=== PATIENT | male | born 1945 | race Caucasian/White ===

== ENCOUNTER → 2016-08-11 | Outpatient (CLI) | payer MEDICARE ==
[~2016-08-11] VITALS: Ht 172.7 cm; Wt 84.3 kg
[~2016-08-11] MED LIST: ASPI81CH32 PO; ASPI81TA7 PO; CARD2TAB PO; CIAL5TAB PO; COLA100C PO; IRON65TA PO; LIDOCAINE 2% INJ 100 MG/5 ML SDV (FOR ANES.) As Ordered ONE; LOVA40TA PO; METF1000 PO; METF500T PO; MULT1TAB10 PO; NS 1,000 ML IV SCH; PROPOFOL 500 MG/50 ML VIAL As Ordered ONE; PROT1TAB2 PO; SUCR1TA PO; TYLE500T78 PO
--- NOTE | 2016-08-11 09:32 | ROOR ---
Patient Name: Tin Ortega Procedure Date: 08/11/2016 9:10 AM Date of : 1945 Age: 71 Room: [facility] Gender: Male Note Status: Finalized Procedure: Upper GI endoscopy Indications: Surveillance for malignancy due to personal history of premalignant condition, Gastric MALT. Providers: Henrry PALACIOS MD Referring MD: Pawan Benedict MD, Rosario Ashby MD Requesting Provider: Medicines: Monitored Anesthesia Care Complications: No immediate complications. Procedure: Pre-Anesthesia Assessment: - The heart rate, respiratory rate, oxygen saturations, blood pressure, adequacy of pulmonary ventilation, and response to care were monitored throughout the procedure. The Endoscope was introduced through the mouth, and advanced to the second part of duodenum. The upper GI endoscopy was accomplished without difficulty. The patient tolerated the procedure well. Findings: A 50 mm scar was found on the greater curvature of the gastric body. The scar tissue was healthy in appearance. There was no evidence of the previous polyp. Biopsies were taken with a cold forceps for histology. The exam was otherwise without abnormality. Impression: - Large Scar (5 cmx6cm) in the proximal to mid gastric body (greater curvature). No evidence of persistent/recurrent MALT lesion. Randomly biopsied. - The examination was otherwise normal. Recommendation: - Await pathology results. - Repeat the upper endoscopy in 1 year for surveillance based on pathology results. Henrry Palacios MD Henrry PALACIOS MD 08/11/2016 9:31:36 AM This report has been signed electronically. Number of Addenda: 0 Note Initiated On: 08/11/2016 9:10 AM Estimated Blood Loss: Estimated blood loss: none.
[2016-08-11 09:52] VITALS: BP 126/69
== END | disposition home or self-care (01) ==
LOC: M OPP 07:13
PROVIDERS: ATTEND Internal Medicine Gastroenterology
DX: Z08 Encounter for follow-up examination after completed treatment for malignant neoplasm (principal); Z85.028 Personal history of other malignant neoplasm of stomach; D50.9 Iron deficiency anemia, unspecified; E11.9 Type 2 diabetes mellitus without complications; M19.90 Unspecified osteoarthritis, unspecified site; Z92.3 Personal history of irradiation; Z88.8 Allergy status to other drugs, medicaments and biological substances; Z79.84 Long term (current) use of oral hypoglycemic drugs; Z79.899 Other long term (current) drug therapy

== ENCOUNTER → 2016-08-17 | Outpatient (CLI) | payer MEDICARE ==
[~2016-08-17] MED LIST changes: +GASTROGRAFIN SOLUTION 30ML (Q9963) As Ordered ONE; +ISOVUE-370 76% 100ML VIAL (Q9967) As Ordered ONE; -LIDOCAINE 2% INJ 100 MG/5 ML SDV (FOR ANES.) As Ordered ONE; -NS 1,000 ML IV SCH; -PROPOFOL 500 MG/50 ML VIAL As Ordered ONE
--- NOTE | 2016-08-17 11:54 | REP ---
Clinical: Non-Hodgkin's lymphoma. Technique: Axial contrast enhanced images from the t lung bases to the pubic symphysis using oral and 100 ml Isovue 370 intravenous contrast material along with precontrast and delayed images of the abdomen as well as coronal and sagittal re-formations. Comparison: 09/12/2015. Findings: Lung bases are relatively clear. Visualized portions of the heart and pericardium are normal. Liver demonstrates stable few hypodensities compatible with benign hepatic cysts - the largest of which is noted in the inferior aspect of the right lobe again measuring approximately 1.9 cm maximal diameter. Spleen, pancreas, gallbladder, and bilateral adrenal glands are normal. Kidneys are stable and again demonstrate few left renal cysts and right lower pole cortical scarring. The enteric system is without obstruction or acute inflammatory process normal terminal ileum and appendix identified in the right lower quadrant. Colonic diverticulosis noted without acute diverticulitis. Pelvis demonstrates normal bladder along with prominent prostate gland measuring 5.5 cm maximal diameter. No significant intra-abdominal/pelvic or retroperitoneal adenopathy is appreciated. Small fat containing left inguinal hernia unchanged. No ascites. No free air. Atherosclerotic changes of the aorta and branch vessels noted without aneurysm or dissection. Musculoskeletal structures demonstrate degenerative changes without focal osseous abnormality along with left hip prosthesis. Impression: 1. Stable benign hepatic and left renal cysts along with minimal right renal cortical scarring. 2. Colonic diverticulosis without acute diverticulitis. 3. No adenopathy, ascites, or obvious mass lesion. Signed by Gregg Baptiste MD 08/17/2016 11:45 A
== END ==
LOC: M RAD 09:33
PROVIDERS: ATTEND Internal Medicine Medical Oncology
DX: R59.1 Generalized enlarged lymph nodes (principal); Q61.02 Congenital multiple renal cysts; K57.30 Diverticulosis of large intestine without perforation or abscess without bleeding
CPT/HCPCS: 74178; Q9963; Q9967

== ENCOUNTER → 2016-08-26 | Outpatient (REF) | payer MEDICARE ==
[~2016-08-26] MED LIST changes: -GASTROGRAFIN SOLUTION 30ML (Q9963) As Ordered ONE; -ISOVUE-370 76% 100ML VIAL (Q9967) As Ordered ONE
[2016-08-26 12:45] LABS: ALBUMIN 4.3 GM/DL (3.2-5.2); ALBUMIN/GLOBULIN RATIO 1.54 (1.00-1.93); ALKALINE PHOSPHATASE 79 U/L (45-117); ALT/SGPT 35 U/L (12-78); ANION GAP 8 MEQ/L (8-16); AST/SGOT 17 U/L (15-37); BILIRUBIN,TOTAL 0.4 MG/DL (0.2-1.0); BLOOD UREA NITROGEN 18 MG/DL (7-18); CALCIUM LEVEL 9.6 MG/DL (8.8-10.2); CARBON DIOXIDE LEVEL 28 MEQ/L (21-32); CHLORIDE LEVEL 108 MEQ/L (98-107); CHOLESTEROL LEVEL 168 MG/DL (<200); GLOMERULAR FILTRATION RATE > 60.0 (>42); GLUCOSE, FASTING 106 MG/DL (83-110); POTASSIUM SERUM 4.7 MEQ/L (3.5-5.1); SODIUM LEVEL 144 MEQ/L (136-145); TOTAL PROTEIN 7.1 GM/DL (6.4-8.2); TRIGLYCERIDES LEVEL 96 MG/DL (<150)
== END ==
LOC: M SFHCCLAY 09:03
PROVIDERS: ATTEND Family Medicine
DX: E11.9 Type 2 diabetes mellitus without complications (principal)

== ENCOUNTER → 2016-08-28 | Outpatient (CLI) | payer MEDICARE | LOC: M SMT 14:25 | PROVIDERS: ATTEND Nurse Practitioner Women's Health | DX: N40.1 Benign prostatic hyperplasia with lower urinary tract symptoms (principal); Z85.51 Personal history of malignant neoplasm of bladder; Z12.5 Encounter for screening for malignant neoplasm of prostate | CPT/HCPCS: 36415; 81001; 87086; 88108; G0103 ==

== ENCOUNTER → 2016-09-30 | Outpatient (REF) | payer MEDICARE | LOC: M SFHCCLAY 09:08 | PROVIDERS: ATTEND Family Medicine | DX: B35.1 Tinea unguium (principal) ==

== ENCOUNTER → 2017-01-06 | Outpatient (CLI) | payer MEDICARE ==
[~2017-01-06] MED LIST changes: -COLA100C PO; +COLA100C3 PO
--- NOTE | 2017-01-06 10:19 | RADONC ---
RADIATION ONCOLOGY FOLLOWUP NOTE DATE: 01/06/2017 CHART NUMBER: [id number] DIAGNOSIS: Gastric MALT lymphoma. STAGE: IAE. ECOG PERFORMANCE STATUS: 0. FOLLOWUP NOTE: Mr. Ortega is a very pleasant 71-year-old white male with the diagnosis of a stage IAE gastric MALT lymphoma who is presenting to us today for routine followup visit 1 year and 2 months post completion of external beam radiation therapy. The patient presents today reporting that generally he is doing quite well. He is complaining of recurrence of difficulty swallowing. He feels like he is food gets stuck somewhere in his mid esophagus. He reports that this has only been going on now for the last 2-3 months. He did say that he had this prior to his radiation and then it cleared up. He also reports that he underwent endoscopy with Dr. Palacios in early August approximately 5 months ago. He has no fevers, chills or night sweats. The patient's review of systems is positive for food getting stuck in the esophagus but is otherwise noncontributory. He denies nausea, vomiting, fevers, chills, night sweats, diplopia, headaches, anxiety or depression, anorexia, weight loss, visual disturbances, chest pain, urinary or bowel difficulties, bone pain, or neurological problems. PHYSICAL EXAMINATION: The patient is a well-developed, well-nourished male in no acute distress. HEENT exam is normocephalic, atraumatic. Extraocular movements are intact. There is no palpable cervical, supraclavicular, infraclavicular, axillary, or inguinal lymphadenopathy present. Lungs are clear to auscultation and percussion. Heart has a regular rate and rhythm. Abdomen is benign with no hepatosplenomegaly, masses, or tenderness. Rectal examination reveals a normal anal sphincter tone. Skeletal examination reveals no tenderness to pressure or percussion of the bony skeleton. Extremities reveal no clubbing, cyanosis, or edema. Neurologic exam is grossly intact as is the remainder of the physical examination. ASSESSMENT: The patient is clinically doing quite well at this point. I have ordered new CT scans of the chest, abdomen, and pelvis to be undertaken especially considering the patient's new symptoms. Clearly, we are looking for any lymphadenopathy in the mediastinum. In addition, I have referred the patient back to Dr. Palacios to discuss his gastroesophageal problems. The patient will continue his routine followup and management by his medical oncologist, Dr. Ashby who just within the last few weeks did new blood work. I have set the patient up to be seen by me again in six months' time. Once again, I am setting him up to discuss his issues with Dr. Palacios and he will continue his close management with his medical oncologist, Dr. Ashby. cc: MD Henrry Grove MD
== END ==
LOC: M ONCR 09:02
PROVIDERS: ATTEND Radiology Radiation Oncology
DX: C88.4 Extranodal marginal zone B-cell lymphoma of mucosa-associated lymphoid tissue [MALT-lymphoma] (principal)

== ENCOUNTER → 2017-01-08 | Outpatient (CLI) | payer MEDICARE ==
[~2017-01-08] MED LIST changes: +GASTROGRAFIN SOLUTION 30ML (Q9963) As Ordered ONE; +ISOVUE-370 76% 100ML VIAL (Q9967) As Ordered ONE
--- NOTE | 2017-01-08 11:07 | REP ---
CT of the chest with IV contrast, without bowel contrast: Comparisons 09/19/2015. There is no esophageal wall thickening. There is no para esophageal mass or adenopathy. On the comparison study there was marked gastric wall thickening along the greater curvature. Today there is wall thickening of the gastric antrum along the greater curvature, however, significantly decreased from the prior study. This extends into the gastric fundus near the esophagus. There is no esophageal dilatation to suggest esophageal obstruction. There are no lung masses or nodules. There is a bulla in the right lower lobe. This is unchanged. There is discoid atelectasis in the right middle lobe. There are no infiltrates or effusions. There is no mediastinal or hilar lymph node enlargement. No axillary lymph node enlargement. Thoracic aorta is unremarkable. Cardiac size is normal. There is no pericardial effusion. In the upper abdomen there is a small cyst at the inferior tip of the hepatic right lobe. This was not imaged on the prior study. Visualized portions of the gallbladder, pancreas and spleen are unremarkable. There are small renal cortical cysts in the visualized upper pole of the left kidney, unchanged. Visualized upper pole right kidney is unremarkable. The adrenals are unremarkable. Impression: There is wall thickening of the gastric antrum along the greater curvature extending into the gastric fundus near the distal esophagus. There is no esophageal dilatation to suggest obstruction. There is no wall thickening of the esophagus. There is no para esophageal mass or adenopathy. There is no mediastinal, hilar or axillary adenopathy. There are no pulmonary masses or nodules, infiltrates or effusions. There is atelectasis/scarring in the right middle lobe. There is a bulla in the right lower lobe, unchanged. Signed by Tony Mcguire MD 01/08/2017 10:58 A
--- NOTE | 2017-01-08 12:03 | REP ---
CT of the abdomen and pelvis with IV contrast, without bowel contrast: The study is performed in conjunction with the CT of the chest performed this same date. Multiphasic scanning is performed initially without IV contrast. Followed by arterial phase IV contrast enhancement from the diaphragms to the pubic symphysis, followed by delayed equilibrium phase scanning from the diaphragms to the iliac crests. Comparisons are 08/17/2016 and 09/12/15. There is wall thickening in the gastric antrum along the greater curvature extending into the fundus near the distal esophagus. This is similar in appearance to 08/17/2016, however, the gastric wall thickening is significantly decreased from 09/12/2015. There is no evidence of esophageal wall thickening or esophageal distension. There is a tiny cyst posteriorly in the dome of the liver. There is a small cyst anteriorly at the inferior tip of the hepatic right lobe. There is a bilobed cyst at the extreme tip of the hepatic right lobe measuring 18 mm in greatest diameter. These cysts are not significantly changed. The hepatic parenchyma is otherwise homogeneous and unremarkable. There is a tiny calculus in the gallbladder. The gallbladder is otherwise unremarkable. There are pancreatic calcifications at the junction of the head and body of the pancreas. These are unchanged and may be sequela of prior pancreatitis. The spleen is not enlarged and is otherwise unremarkable. The adrenals are unremarkable. The right kidney is unremarkable. There are multiple renal cortical cysts in the left kidney, unchanged. Left kidney is otherwise unremarkable. The abdominal aorta is unremarkable. There is no retroperitoneal or mesenteric adenopathy. There is no ascites. The bowel loops are unremarkable. Pelvis: There is sigmoid colon diverticulosis without diverticulitis, this is unchanged. The bladder is incompletely distended but otherwise unremarkable. There are no lytic, blastic or destructive skeletal changes. There is no pelvic adenopathy, ascites or mass. There is a left hip total arthroplasty. This is unchanged. Impression: There are stable benign hepatic and left renal cysts. There is sigmoid colon diverticulosis without diverticulitis. There is no adenopathy, mass, ascites or skeletal lesion. No significant interval change. Signed by Tony Mcguire MD 01/08/2017 11:55 A
== END ==
LOC: M RAD 07:49
PROVIDERS: ATTEND Radiology Radiation Oncology
DX: T18.120A Food in esophagus causing compression of trachea, initial encounter (principal); K57.30 Diverticulosis of large intestine without perforation or abscess without bleeding; N28.1 Cyst of kidney, acquired; Z88.8 Allergy status to other drugs, medicaments and biological substances; Z96.9 Presence of functional implant, unspecified; Y92.89 Other specified places as the place of occurrence of the external cause
CPT/HCPCS: 71260; 74178; Q9963; Q9967

== ENCOUNTER → 2017-01-28 | Outpatient (CLI) | payer MEDICARE ==
[~2017-01-28] MED LIST changes: +E-Z-GAS II EFFERVESCENT PACKET (SODIUM BICARB./CITRIC ACID/SIMETHICONE) As Ordered ONE; +E-Z-HD 98% w/w 340GM SUSP BTL As Ordered ONE; +E-Z-PAQUE 96% w/w SUSP 176GM BTL As Ordered ONE; -GASTROGRAFIN SOLUTION 30ML (Q9963) As Ordered ONE; -ISOVUE-370 76% 100ML VIAL (Q9967) As Ordered ONE
--- NOTE | 2017-01-28 16:35 | REP ---
ESOPHAGRAM: The procedure was performed under the direct supervision of Dr. De. The images were reviewed with Dr. De. A single view PA chest x-ray is submitted as a nursing program director film. There is no change compared to a previous chest x-ray dated 03/19/2016. Liquid barium and gas producing granules were given in the erect position as well as liquid barium in the prone oblique positions in order to perform a double contrast esophagram examination. The oral and pharyngeal stages of deglutition are unremarkable. 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 Esophageal transport is prompt and efficient and there is no esophagitis, stricture, mucosal ring or hiatal hernia. Gastroesophageal reflux is not demonstrated on this examination. IMPRESSION: There is cricopharyngeal hypertrophy, otherwise unremarkable double contrast esophagram examination. 57 seconds of fluoroscopy time was utilized for this procedure.
== END ==
LOC: M RAD 08:25
PROVIDERS: ATTEND Physician Assistant Medical
DX: J39.2 Other diseases of pharynx (principal)

== ENCOUNTER → 2017-02-24 | Outpatient (REF) | payer MEDICARE ==
[~2017-02-24] MED LIST changes: +ASPI1TAB15 PO; -ASPI81TA7 PO; -COLA100C3 PO; +COLA100C5 PO; -E-Z-GAS II EFFERVESCENT PACKET (SODIUM BICARB./CITRIC ACID/SIMETHICONE) As Ordered ONE; -E-Z-HD 98% w/w 340GM SUSP BTL As Ordered ONE; -E-Z-PAQUE 96% w/w SUSP 176GM BTL As Ordered ONE; -METF1000 PO; +METF10004 PO; -METF500T PO; +METF500T13 PO
[2017-02-24 11:41] LABS: ANION GAP 5 MEQ/L (8-16); BLOOD UREA NITROGEN 17 MG/DL (7-18); CALCIUM LEVEL 9.4 MG/DL (8.8-10.2); CARBON DIOXIDE LEVEL 28 MEQ/L (21-32); CHLORIDE LEVEL 107 MEQ/L (98-107); CREATININE FOR GFR 1.02 MG/DL (0.70-1.30); GLOMERULAR FILTRATION RATE > 60.0 (>42); GLUCOSE, FASTING 121 MG/DL (83-110); POTASSIUM SERUM 4.9 MEQ/L (3.5-5.1); SODIUM LEVEL 140 MEQ/L (136-145)
== END ==
LOC: M SFHCCLAY 08:48
PROVIDERS: ATTEND Family Medicine
DX: N40.1 Benign prostatic hyperplasia with lower urinary tract symptoms (principal); E11.9 Type 2 diabetes mellitus without complications; R41.3 Other amnesia

== ENCOUNTER → 2017-06-03 | Outpatient (REF) | payer MEDICARE ==
[2017-06-03 18:46] LABS: FREE T4 1.05 NG/DL (0.76-1.46)
== END ==
LOC: M SFHCCLAY 11:32
PROVIDERS: ATTEND Family Medicine
DX: R94.6 Abnormal results of thyroid function studies (principal)

== ENCOUNTER → 2017-06-21 | Outpatient (CLI) | payer MEDICARE | LOC: M LAB 09:14 | PROVIDERS: ATTEND Ophthalmology | DX: C44.319 Basal cell carcinoma of skin of other parts of face (principal) ==

== ENCOUNTER → 2017-06-23 | Outpatient (REF) | payer MEDICARE | LOC: M LAB REF 14:15 | PROVIDERS: ATTEND Ophthalmology | DX: C44.319 Basal cell carcinoma of skin of other parts of face (principal) ==

== ENCOUNTER → 2017-08-06 | Outpatient (CLI) | payer MEDICARE | LOC: M RAD 09:55 | DX: K40.90 Unilateral inguinal hernia, without obstruction or gangrene, not specified as recurrent (principal); K42.9 Umbilical hernia without obstruction or gangrene | CPT/HCPCS: 76857 ==

== ENCOUNTER 2017-09-02 06:52 | Day surgery (SDC) | payer MEDICARE ==
[2017-09-02] MEDS: NS 1,000 ML IV (07:15)
[2017-09-02] MEDS ORDERED: PROPOFOL 200 MG/20 ML VIAL As Ordered ×2 (07:19→07:42)
[2017-09-02] MEDS ORDERED: LIDOCAINE 2% INJ 100 MG/5 ML SDV (FOR ANES.) As Ordered (07:19)
== END 2017-09-02 08:18 | disposition home or self-care (01) ==
LOC: M OPP 06:52
DX: K31.89 Other diseases of stomach and duodenum (principal); Z87.19 Personal history of other diseases of the digestive system; E11.9 Type 2 diabetes mellitus without complications; E78.00 Pure hypercholesterolemia, unspecified; D64.9 Anemia, unspecified; K22.70 Barrett's esophagus without dysplasia; Z79.82 Long term (current) use of aspirin; Z79.84 Long term (current) use of oral hypoglycemic drugs; Z79.899 Other long term (current) drug therapy; Z88.8 Allergy status to other drugs, medicaments and biological substances; Z85.51 Personal history of malignant neoplasm of bladder; Z85.828 Personal history of other malignant neoplasm of skin; Z96.641 Presence of right artificial hip joint; Z92.3 Personal history of irradiation
CPT/HCPCS: 43239

== ENCOUNTER → 2017-09-22 | Outpatient (REF) | payer MEDICARE ==
[2017-09-22 11:42] LABS: ESTIMATED AVERAGE GLUCOSE 146 MG/DL (60-110); HEMOGLOBIN A1c 6.7 %
[2017-09-22 11:50] LABS: ANION GAP 7 MEQ/L (8-16); BLOOD UREA NITROGEN 17 MG/DL (7-18); CALCIUM LEVEL 9.6 MG/DL (8.8-10.2); CARBON DIOXIDE LEVEL 28 MEQ/L (21-32); CHLORIDE LEVEL 108 MEQ/L (98-107); CREATININE FOR GFR 1.08 MG/DL (0.70-1.30); GLOMERULAR FILTRATION RATE > 60.0 (>42); GLUCOSE, FASTING 124 MG/DL (70-100); POTASSIUM SERUM 4.6 MEQ/L (3.5-5.1); SODIUM LEVEL 143 MEQ/L (136-145)
[2017-09-22 11:54] LABS: CHOLESTEROL LEVEL 207 MG/DL (<200); CHOLESTEROL RISK RATIO 3.833 (<5); HDL CHOLESTEROL 54 MG/DL (>40); LDL CHOLESTEROL 125.2 MG/DL (<100); NON-HDL-C 153 MG/DL; TRIGLYCERIDES LEVEL 139 MG/DL (<150)
[2017-09-22 11:57] LABS: MALB URINE SIEMENS 25.8 MG/L; MAU/CREAT RATIO 11.6 MCG/MG (0.0-30.0)
== END ==
LOC: M SFHCCLAY 07:44
DX: E11.9 Type 2 diabetes mellitus without complications (principal)
CPT/HCPCS: 83036

== ENCOUNTER → 2017-11-11 | Outpatient (CLI) | payer MEDICARE, BC, OTHER | LOC: M CLY 10:19 | DX: R04.2 Hemoptysis (principal) | CPT/HCPCS: G0463 ==

== ENCOUNTER → 2018-03-21 | Outpatient (REF) | payer MEDICARE ==
[2018-03-21 12:51] LABS: ANION GAP 6 MEQ/L (8-16); BLOOD UREA NITROGEN 14 MG/DL (7-18); CALCIUM LEVEL 9.5 MG/DL (8.8-10.2); CARBON DIOXIDE LEVEL 28 MEQ/L (21-32); CHLORIDE LEVEL 109 MEQ/L (98-107); CHOLESTEROL LEVEL 182 MG/DL (<200); CHOLESTEROL RISK RATIO 3.791 (<5); CREATININE FOR GFR 0.95 MG/DL (0.70-1.30); GLOMERULAR FILTRATION RATE > 60.0 (>42); GLUCOSE, FASTING 104 MG/DL (70-100); HDL CHOLESTEROL 48 MG/DL (>40); NON-HDL-C 134 MG/DL; POTASSIUM SERUM 4.7 MEQ/L (3.5-5.1); SODIUM LEVEL 143 MEQ/L (136-145); TRIGLYCERIDES LEVEL 165 MG/DL (<150)
[2018-03-21 16:26] LABS: ESTIMATED AVERAGE GLUCOSE 143 MG/DL (60-110); HEMOGLOBIN A1c 6.6 %
== END ==
LOC: M SFHCCLAY 08:33
DX: E11.9 Type 2 diabetes mellitus without complications (principal); E78.00 Pure hypercholesterolemia, unspecified
CPT/HCPCS: 83036

== ENCOUNTER → 2018-06-21 | Outpatient (CLI) | payer MEDICARE | LOC: M CLY 08:34 | DX: M20.61 Acquired deformities of toe(s), unspecified, right foot (principal); M79.671 Pain in right foot | CPT/HCPCS: 71046 ==

== ENCOUNTER → 2018-06-21 | Outpatient (REF) | payer MEDICARE ==
[2018-06-21 12:48] LABS: ALBUMIN 3.9 GM/DL (3.2-5.2); ALBUMIN/GLOBULIN RATIO 1.39 (1.00-1.93); ALKALINE PHOSPHATASE 81 U/L (45-117); ALT/SGPT 30 U/L (12-78); ANION GAP 4 MEQ/L (8-16); AST/SGOT 19 U/L (7-37); BILIRUBIN,TOTAL 0.3 MG/DL (0.2-1.0); BLOOD UREA NITROGEN 18 MG/DL (7-18); CARBON DIOXIDE LEVEL 30 MEQ/L (21-32); CHLORIDE LEVEL 108 MEQ/L (98-107); CREATININE FOR GFR 1.09 MG/DL (0.70-1.30); GLOMERULAR FILTRATION RATE > 60.0 (>42); GLUCOSE, FASTING 110 MG/DL (70-100); POTASSIUM SERUM 4.9 MEQ/L (3.5-5.1); SODIUM LEVEL 142 MEQ/L (136-145); TOTAL PROTEIN 6.7 GM/DL (6.4-8.2)
[2018-06-21 12:58] LABS: BASO # 0.1 10^3/uL (0.0-0.2); BASO % 0.9 % (0.0-1.0); EOS # 0.5 10^3/uL (0.0-0.50); EOS % 7.7 % (0.0-3.0); HEMATOCRIT 41.6 % (42.0-52.0); HEMOGLOBIN 13.3 g/dl (13.5-17.5); IMMATURE GRANULOCYTE % 0.1 % (0-3.0); LYMPH # 1.2 10^3/uL (1.5-4.5); LYMPH % 17.1 % (24.0-44.0); MEAN CORPUSCULAR HEMOGLOBIN 29.6 pg (27.0-33.0); MEAN CORPUSCULAR VOLUME 92.4 fl (80.0-96.0); MONO # 0.8 10^3/uL (0.0-0.8); MONO % 12.1 % (0.0-5.0); NEUTROPHILS # 4.3 10^3/uL (1.8-7.7); NEUTROPHILS % 62.1 % (36.0-66.0); PLATELET COUNT, AUTOMATED 291 10^3/uL (150-450); RED CELL DISTRIBUTION WIDTH 15.6 % (11.5-14.5); WHITE BLOOD COUNT 6.9 10^3/uL (4.0-10.0)
== END ==
LOC: M LAB REF 11:16
DX: M20.41 Other hammer toe(s) (acquired), right foot (principal); M79.671 Pain in right foot
CPT/HCPCS: 80053

== ENCOUNTER 2018-07-08 06:02 | Day surgery (SDC) | payer MEDICARE ==
[2018-07-08 06:50] LABS: BEDSIDE GLUCOSE 112 MG/DL (83-110)
[2018-07-08] MEDS: LR 1,000 ML IV (06:50)
[2018-07-08] MEDS ORDERED: LIDOCAINE 2% INJ 100 MG/5 ML SDV (FOR ANES.) As Ordered (07:20)
[2018-07-08] MEDS ORDERED: PROPOFOL 500 MG/50 ML VIAL As Ordered (07:20)
[2018-07-08] MEDS ORDERED: MIDAZOLAM INJ 2 MG/2 ML VIAL (J2250) As Ordered (07:21)
[2018-07-08] MEDS ORDERED: fentaNYL 100 MCG/2 ML INJECTION (J3010) As Ordered (07:21)
[2018-07-08] MEDS: BUPIVACAINE HCL 0.5% 10 ML VIAL As Ordered ×2 (07:40→09:50)
[2018-07-08] MEDS: LIDOCAINE 2% MDV 20 ML VIAL As Ordered (07:40)
[2018-07-08] MEDS ORDERED: PROPOFOL 200 MG/20 ML VIAL As Ordered ×2 (08:53→09:25)
[2018-07-08] MEDS: BACITRACIN PWD 50,000 UNITS VIAL As Ordered (09:30)
[2018-07-08] MEDS: NEOSPORIN GU IRRIG 20 ML VIAL As Ordered (09:30)
[2018-07-08] MEDS: dexameTHASONE 4 MG/ML 1ML VIAL (J1100) As Ordered (09:50)
[2018-07-08] MEDS ORDERED: NORCO, ANEXSIA 5/325MG TABLET (HYDROcodone/ACETAMINOPHEN) PO (10:45)
[2018-07-08] MEDS ORDERED: LR 1,000 ML IV (10:45)
[2018-07-08] MEDS ORDERED: ONDANSETRON 4MG/2ML VIAL (J2405) IV (10:45)
== END 2018-07-08 11:30 | disposition home or self-care (01) ==
LOC: M SDC 06:02
DX: M20.41 Other hammer toe(s) (acquired), right foot (principal); M77.41 Metatarsalgia, right foot; E11.9 Type 2 diabetes mellitus without complications; E78.5 Hyperlipidemia, unspecified; Z92.3 Personal history of irradiation; Z85.51 Personal history of malignant neoplasm of bladder; Z79.82 Long term (current) use of aspirin; Z79.84 Long term (current) use of oral hypoglycemic drugs; Z79.899 Other long term (current) drug therapy
CPT/HCPCS: 28285

== ENCOUNTER → 2018-09-30 | Outpatient (REF) | payer MEDICARE ==
[~2018-09-30] MED LIST changes: +VITA500T PO
[2018-09-30 12:54] LABS: HEMATOCRIT 41.6 % (42.0-52.0); HEMOGLOBIN 13.4 g/dl (13.5-17.5); MEAN CORPUSCULAR HEMOGLOBIN 29.7 pg (27.0-33.0); MEAN CORPUSCULAR HGB CONC 32.2 g/dl (32.0-36.5); MEAN CORPUSCULAR VOLUME 92.2 fl (80.0-96.0); PLATELET COUNT, AUTOMATED 281 10^3/uL (150-450); RED BLOOD COUNT 4.51 10^6/uL (4.30-6.10); WHITE BLOOD COUNT 6.4 10^3/uL (4.0-10.0)
[2018-09-30 13:06] LABS: BLOOD UREA NITROGEN 18 MG/DL (7-18); CALCIUM LEVEL 9.5 MG/DL (8.8-10.2); CARBON DIOXIDE LEVEL 28 MEQ/L (21-32); CHLORIDE LEVEL 107 MEQ/L (98-107); CREATININE FOR GFR 0.99 MG/DL (0.70-1.30); GLOMERULAR FILTRATION RATE > 60.0 (>42); GLUCOSE, FASTING 108 MG/DL (70-100); POTASSIUM SERUM 4.9 MEQ/L (3.5-5.1); SODIUM LEVEL 141 MEQ/L (136-145)
[2018-09-30 13:33] LABS: MALB URINE SIEMENS 12.4 MG/L; MAU/CREAT RATIO 10.5 MCG/MG (0.0-30.0)
[2018-09-30 14:23] LABS: HEMOGLOBIN A1c 7.1 %
== END ==
LOC: M SFHCCLAY 08:39
PROVIDERS: ATTEND Family Medicine
DX: C88.4 Extranodal marginal zone B-cell lymphoma of mucosa-associated lymphoid tissue [MALT-lymphoma] (principal); E11.9 Type 2 diabetes mellitus without complications; E78.00 Pure hypercholesterolemia, unspecified

== ENCOUNTER 2018-10-27 12:50 | Day surgery (SDC) | payer MEDICARE ==
[~2018-10-27] VITALS: Ht 172.7 cm; Wt 83.9 kg
[2018-10-27] MEDS ORDERED: NS 1,000 ML IV ONE (13:30)
[2018-10-27] MEDS ORDERED: PROPOFOL 200 MG/20 ML VIAL As Ordered ONE (14:17)
[2018-10-27] MEDS ORDERED: LIDOCAINE 2% INJ 100 MG/5 ML SDV (FOR ANES.) As Ordered ONE (14:17)
--- NOTE | 2018-10-27 14:37 | ROOR ---
Patient Name: Tin Ortega Procedure Date: 10/27/2018 2:14 PM Date of : 1945 Age: 73 Room: [facility] Gender: Male Note Status: Finalized Procedure: Upper GI endoscopy Indications: Follow-up of MALT lymphoma Providers: Henrry PALACIOS MD Referring MD: Pawan Benedict MD Requesting Provider: Medicines: Monitored Anesthesia Care Complications: No immediate complications. Procedure: Pre-Anesthesia Assessment: - The heart rate, respiratory rate, oxygen saturations, blood pressure, adequacy of pulmonary ventilation, and response to care were monitored throughout the procedure. The Endoscope was introduced through the mouth, and advanced to the second part of duodenum. The upper GI endoscopy was accomplished without difficulty. The patient tolerated the procedure well. Findings: The examined esophagus was normal. A medium scar was found on the greater curvature of the stomach. The scar tissue was healthy in appearance. This was biopsied with a cold forceps for histology. Mild inflammation was found in the gastric antrum. Biopsies were taken with a cold forceps for histology. A single erosion without bleeding was found in the first portion of the duodenum. Biopsies were taken with a cold forceps for histology. Impression: - Normal esophagus. - Scar in the greater curvature of the stomach. Biopsied. - Mild antral gastritis and duodenal erosion. Biopsied together. - The exam is otherwise normal. Recommendation: - Telephone endoscopist for pathology results in 2 weeks. - Use Prilosec (omeprazole) 20 mg PO daily. - (the script was sent to your pharmacy on file) Henrry Palacios MD Henrry PALACIOS MD 10/27/2018 2:37:17 PM This report has been signed electronically. Number of Addenda: 0 Note Initiated On: 10/27/2018 2:14 PM Estimated Blood Loss: Estimated blood loss: none.
[2018-10-27 15:05] VITALS: BP 110/65
== END 2018-10-27 15:14 | disposition home or self-care (01) ==
LOC: M OPP 12:50
PROVIDERS: ATTEND Internal Medicine Gastroenterology
DX: K31.89 Other diseases of stomach and duodenum (principal); K29.70 Gastritis, unspecified, without bleeding; K26.9 Duodenal ulcer, unspecified as acute or chronic, without hemorrhage or perforation; C88.4 Extranodal marginal zone B-cell lymphoma of mucosa-associated lymphoid tissue [MALT-lymphoma]; B96.81 Helicobacter pylori [H. pylori] as the cause of diseases classified elsewhere; Z79.82 Long term (current) use of aspirin; Z79.899 Other long term (current) drug therapy; Z88.8 Allergy status to other drugs, medicaments and biological substances; Z92.3 Personal history of irradiation

== ENCOUNTER → 2018-11-04 | Outpatient (CLI) | payer MEDICARE ==
--- NOTE | 2018-11-04 11:22 | REP ---
Chest two views HISTORY: Influenza Comparison: 06/21/2018 There is elevation of the left hemidiaphragm. The lungs are clear. The heart is normal in size. The pulmonary vasculature is normal in appearance. Degenerative change is present in the thoracic spine. IMPRESSION: No acute disease.
== END ==
LOC: M CLY 10:14
PROVIDERS: ATTEND Family Medicine
DX: J11.1 Influenza due to unidentified influenza virus with other respiratory manifestations (principal)

== ENCOUNTER → 2018-12-06 | Outpatient (CLI) | payer MEDICARE ==
[~2018-12-06] MED LIST changes: -ASPI81CH32 PO; +ASPI81CH33 PO
--- NOTE | 2018-12-06 08:59 | REP ---
ULTRASOUND ANTERIOR ABDOMINAL WALL: Real-time sonographic evaluation of the anterior abdominal wall was performed. Reportedly there is a palpable abnormality in the supraumbilical region. There does appear to be diastasis of the rectus muscles both above and below the umbilicus. At the umbilicus diastasis is approximately 6 cm, and above the umbilicus it measures about 9.5 cm. There is no overt abdominal wall hernia identified. Electronically Signed by Tony De MD 12/07/2018 11:36 A
== END ==
LOC: M RAD 06:43
PROVIDERS: ATTEND Physician Assistant Medical
DX: M62.08 Separation of muscle (nontraumatic), other site (principal)

== ENCOUNTER → 2018-12-30 | Outpatient (REF) | payer MEDICARE ==
[2018-12-30 11:20] LABS: BLOOD UREA NITROGEN 20 MG/DL (7-18); CREATININE FOR GFR 1.07 MG/DL (0.70-1.30); GLOMERULAR FILTRATION RATE > 60.0 (>42)
== END ==
LOC: M LABDRAWC 10:54 → M LABDRAW1 10:54
PROVIDERS: ATTEND Physician Assistant Medical
DX: R10.12 Left upper quadrant pain (principal)

== ENCOUNTER → 2019-01-06 | Outpatient (CLI) | payer MEDICARE ==
[~2019-01-06] MED LIST changes: +GASTROGRAFIN SOLUTION 30ML (Q9963) As Ordered ONE; +ISOVUE-370 76% 100ML VIAL (Q9967) As Ordered ONE
--- NOTE | 2019-01-06 11:43 | REP ---
CT ABDOMEN PELVIS WITHOUT AND WITH IV CONTRAST: With oral contrast. HISTORY: Left upper quadrant pain. Palpable hernia, which appears to be reducible. The patient also gives a history of prior bladder carcinoma and stomach carcinoma as well as non-Hodgkin lymphoma. Comparison sonography December 06, 2018. Comparison CT study January 08, 2017. The CT CONTRAST DOSE: 100 mL of intravenous Isovue 370. CT FINDINGS: Preliminary digital earth science technical officer radiograph shows multiple small air-fluid levels distributed throughout the colon suggesting enteritis. The left hip has been replaced. The liver and spleen are normal in size and homogeneous in texture except for the presence of a cyst in the inferior aspect of the right lobe of the liver measuring 2.2 cm in greatest diameter. No adrenal lesion is seen on either side. Pancreas contains a calcification in the body of the pancreas but is otherwise normal. No abnormalities noted in the gallbladder. Findings in the liver and pancreas are unchanged from comparison study. There are small renal cortical cysts in the left kidney unchanged. The largest of these measures 2.6 cm in greatest diameter. No renal mass lesion is observed. There is some cortical thinning in the upper pole of the left kidney unchanged. Normal caliber aorta with vascular calcification. No periaortic mass or adenopathy is seen. Small and large intestinal bowel loops are opacified with orally ingested contrast and display liquid content. There is diverticulosis affecting the sigmoid colon without CT evidence of diverticulitis. No colonic mass lesion is visible. The ileocecal valve is unremarkable. The appendix is normal in appearance. Seminal vesicles, prostate and urinary bladder are unremarkable. No acute bony abnormality is appreciated. IMPRESSION: Prominent vascular calcification. Left colonic diverticulosis. No abdominal wall defect seen by CT. Small stable hepatic cyst and renal cysts. Electronically Signed by Daniel Lomas MD 01/06/2019 03:59 P
== END ==
LOC: M RAD 08:38
PROVIDERS: ATTEND Physician Assistant Medical
DX: R10.12 Left upper quadrant pain (principal); Z85.51 Personal history of malignant neoplasm of bladder; Z85.79 Personal history of other malignant neoplasms of lymphoid, hematopoietic and related tissues; Z85.00 Personal history of malignant neoplasm of unspecified digestive organ; N28.1 Cyst of kidney, acquired; K57.30 Diverticulosis of large intestine without perforation or abscess without bleeding; K76.89 Other specified diseases of liver
CPT/HCPCS: 74178; Q9963; Q9967

== ENCOUNTER → 2019-02-06 | Outpatient (REF) | payer MEDICARE ==
[~2019-02-06] MED LIST changes: -GASTROGRAFIN SOLUTION 30ML (Q9963) As Ordered ONE; -ISOVUE-370 76% 100ML VIAL (Q9967) As Ordered ONE
[2019-02-06 11:58] LABS: INR 2.74; PROTHROMBIN TIME 28.9 SECONDS (11.8-14.0)
== END ==
LOC: M SFHCCLAY 07:34
PROVIDERS: ATTEND Family Medicine
DX: Z79.01 Long term (current) use of anticoagulants (principal)

== ENCOUNTER → 2019-02-08 | Outpatient (REF) | payer MEDICARE ==
[2019-02-08 12:02] LABS: INR 3.44; PROTHROMBIN TIME 34.7 SECONDS (11.8-14.0)
== END ==
LOC: M SFHCCLAY 07:47
PROVIDERS: ATTEND Family Medicine
DX: Z79.01 Long term (current) use of anticoagulants (principal); Z95.1 Presence of aortocoronary bypass graft

== ENCOUNTER → 2019-02-10 | Outpatient (REF) | payer MEDICARE ==
[2019-02-10 11:58] LABS: INR 2.66; PROTHROMBIN TIME 28.2 SECONDS (11.8-14.0)
== END ==
LOC: M SFHCCLAY 07:39
PROVIDERS: ATTEND Family Medicine
DX: Z79.01 Long term (current) use of anticoagulants (principal); Z95.1 Presence of aortocoronary bypass graft

== ENCOUNTER → 2019-02-15 | Outpatient (REF) | payer MEDICARE ==
[2019-02-15 17:56] LABS: INR 2.98; PROTHROMBIN TIME 30.9 SECONDS (11.8-14.0)
== END ==
LOC: M SFHCCLAY 11:28
PROVIDERS: ATTEND Family Medicine
DX: Z79.01 Long term (current) use of anticoagulants (principal)

== ENCOUNTER → 2019-02-21 | Outpatient (REF) | payer MEDICARE ==
[2019-02-21 13:16] LABS: INR 4.59; PROTHROMBIN TIME 43.7 SECONDS (11.8-14.0)
== END ==
LOC: M SFHCCLAY 07:46
PROVIDERS: ATTEND Family Medicine
DX: Z79.01 Long term (current) use of anticoagulants (principal); Z95.1 Presence of aortocoronary bypass graft; I48.0 Paroxysmal atrial fibrillation

== ENCOUNTER → 2019-02-28 | Outpatient (REF) | payer MEDICARE ==
[2019-02-28 12:35] LABS: INR 1.64; PROTHROMBIN TIME 19.2 SECONDS (11.8-14.0)
== END ==
LOC: M SFHCCLAY 07:33
PROVIDERS: ATTEND Family Medicine
DX: Z79.01 Long term (current) use of anticoagulants (principal); Z95.1 Presence of aortocoronary bypass graft; I48.0 Paroxysmal atrial fibrillation

== ENCOUNTER → 2019-03-07 | Outpatient (REF) | payer MEDICARE ==
[2019-03-07 11:39] LABS: INR 1.83; PROTHROMBIN TIME 20.9 SECONDS (11.8-14.0)
== END ==
LOC: M SFHCCLAY 07:35
PROVIDERS: ATTEND Family Medicine
DX: Z51.81 Encounter for therapeutic drug level monitoring (principal); Z79.01 Long term (current) use of anticoagulants; I48.0 Paroxysmal atrial fibrillation; Z95.1 Presence of aortocoronary bypass graft

== ENCOUNTER → 2019-03-14 | Outpatient (REF) | payer MEDICARE ==
[2019-03-14 14:12] LABS: INR 2.28; PROTHROMBIN TIME 24.9 SECONDS (11.8-14.0)
== END ==
LOC: M SFHCCLAY 08:17
PROVIDERS: ATTEND Family Medicine
DX: Z79.01 Long term (current) use of anticoagulants (principal); Z95.1 Presence of aortocoronary bypass graft; I48.0 Paroxysmal atrial fibrillation

== ENCOUNTER → 2019-03-28 | Outpatient (REF) | payer MEDICARE ==
[2019-03-28 11:58] LABS: INR 2.83; PROTHROMBIN TIME 29.7 SECONDS (11.8-14.0)
== END ==
LOC: M SFHCCLAY 08:34
PROVIDERS: ATTEND Family Medicine
DX: Z79.01 Long term (current) use of anticoagulants (principal); Z95.1 Presence of aortocoronary bypass graft; I48.0 Paroxysmal atrial fibrillation

== ENCOUNTER → 2019-04-25 | Outpatient (REF) | payer MEDICARE ==
[2019-04-25 13:01] LABS: INR 2.53; PROTHROMBIN TIME 27.1 SECONDS (11.8-14.0)
== END ==
LOC: M SFHCCLAY 07:58
PROVIDERS: ATTEND Family Medicine
DX: Z95.1 Presence of aortocoronary bypass graft (principal); Z79.01 Long term (current) use of anticoagulants; I48.0 Paroxysmal atrial fibrillation

== ENCOUNTER → 2019-05-23 | Outpatient (REF) | payer MEDICARE ==
[2019-05-23 12:27] LABS: INR 3.09; PROTHROMBIN TIME 31.8 SECONDS (11.8-14.0)
== END ==
LOC: M SFHCCLAY 07:52
PROVIDERS: ATTEND Family Medicine
DX: Z79.01 Long term (current) use of anticoagulants (principal); Z95.1 Presence of aortocoronary bypass graft; I48.0 Paroxysmal atrial fibrillation

== ENCOUNTER → 2019-06-06 | Outpatient (REF) | payer MEDICARE ==
[2019-06-06 13:07] LABS: INR 3.49; PROTHROMBIN TIME 35.1 SECONDS (11.8-14.0)
== END ==
LOC: M SFHCCLAY 07:34
PROVIDERS: ATTEND Family Medicine
DX: I48.0 Paroxysmal atrial fibrillation (principal); Z95.1 Presence of aortocoronary bypass graft

== ENCOUNTER → 2019-06-22 | Outpatient (REF) | payer MEDICARE ==
[2019-06-22 12:29] LABS: ALBUMIN 4.1 GM/DL (3.2-5.2); BILIRUBIN,TOTAL 0.4 MG/DL (0.2-1.0); CALCIUM LEVEL 9.6 MG/DL (8.8-10.2); CHOLESTEROL RISK RATIO 2.375 (<5); CREATININE FOR GFR 2.06 MG/DL (0.70-1.30); GLOMERULAR FILTRATION RATE 33.6 (>42); POTASSIUM SERUM 4.9 MEQ/L (3.5-5.1); TOTAL PROTEIN 7.2 GM/DL (6.4-8.2)
[2019-06-22 12:30] LABS: HEMATOCRIT 35.1 % (42.0-52.0); HEMOGLOBIN 10.7 g/dl (13.5-17.5); MEAN CORPUSCULAR HEMOGLOBIN 27.9 pg (27.0-33.0); MEAN CORPUSCULAR HGB CONC 30.5 g/dl (32.0-36.5); MEAN CORPUSCULAR VOLUME 91.4 fl (80.0-96.0); PLATELET COUNT, AUTOMATED 276 10^3/uL (150-450); RED BLOOD COUNT 3.84 10^6/uL (4.30-6.10); WHITE BLOOD COUNT 7.3 10^3/uL (4.0-10.0)
[2019-06-22 12:39] LABS: INR 2.21; PROTHROMBIN TIME 24.3 SECONDS (11.8-14.0)
[2019-06-22 12:52] LABS: MALB URINE SIEMENS 71.1 MG/L; MAU/CREAT RATIO 24.1 MCG/MG (0.0-30.0)
[2019-06-22 13:09] LABS: HEMOGLOBIN A1c 6.4 %
[2019-06-28 12:37] LABS: PERCENT SATURATION 13.9 % (19.7-50.0)
== END ==
LOC: M SFHCCLAY 08:01
PROVIDERS: ATTEND Family Medicine
DX: I48.0 Paroxysmal atrial fibrillation (principal); D50.9 Iron deficiency anemia, unspecified; E11.9 Type 2 diabetes mellitus without complications; Z95.1 Presence of aortocoronary bypass graft

== ENCOUNTER → 2019-07-05 | Outpatient (REF) | payer MEDICARE ==
[2019-07-05 12:28] LABS: INR 2.69; PROTHROMBIN TIME 28.5 SECONDS (11.8-14.0)
== END ==
LOC: M SFHCCLAY 07:49
PROVIDERS: ATTEND Family Medicine
DX: Z95.1 Presence of aortocoronary bypass graft (principal); I48.0 Paroxysmal atrial fibrillation; Z79.01 Long term (current) use of anticoagulants

== ENCOUNTER → 2019-07-31 | Outpatient (REF) | payer MEDICARE ==
[2019-07-31 11:26] LABS: INR 2.42; PROTHROMBIN TIME 26.2 SECONDS (11.8-14.0)
== END ==
LOC: M SFHCCLAY 07:57
PROVIDERS: ATTEND Family Medicine
DX: Z95.1 Presence of aortocoronary bypass graft (principal); I48.0 Paroxysmal atrial fibrillation; Z79.01 Long term (current) use of anticoagulants

== ENCOUNTER → 2019-08-01 | Outpatient (REF) | payer MEDICARE ==
[2019-08-01 12:46] LABS: HEMATOCRIT 33.8 % (42.0-52.0); HEMOGLOBIN 10.1 g/dl (13.5-17.5); MEAN CORPUSCULAR HEMOGLOBIN 27.8 pg (27.0-33.0); MEAN CORPUSCULAR HGB CONC 29.9 g/dl (32.0-36.5); MEAN CORPUSCULAR VOLUME 93.1 fl (80.0-96.0); PLATELET COUNT, AUTOMATED 300 10^3/uL (150-450); RED BLOOD COUNT 3.63 10^6/uL (4.30-6.10)
[2019-08-01 13:00] LABS: CALCIUM LEVEL 8.8 MG/DL (8.8-10.2); CREATININE FOR GFR 1.77 MG/DL (0.70-1.30); POTASSIUM SERUM 4.9 MEQ/L (3.5-5.1)
== END ==
LOC: M SFHCCLAY 08:20
PROVIDERS: ATTEND Family Medicine
DX: E11.9 Type 2 diabetes mellitus without complications (principal); D50.9 Iron deficiency anemia, unspecified; E78.00 Pure hypercholesterolemia, unspecified

== ENCOUNTER → 2019-08-18 | Outpatient (CLI) | payer MEDICARE ==
[~2019-08-18] MED LIST changes: +E-Z-GAS II EFFERVESCENT PACKET (SODIUM BICARB./CITRIC ACID/SIMETHICONE) As Ordered ONE; +E-Z-HD 98% w/w 340GM SUSP BTL As Ordered ONE; +E-Z-PAQUE 96% w/w SUSP 176GM BTL As Ordered ONE
--- NOTE | 2019-08-19 04:37 | REP ---
Esophagram The procedure was performed under the direct supervision of Dr. Lomas. The images were reviewed with Dr. Lomas. A single view PA chest x-ray is submitted as a supervisor edging film. The patient is status post median sternotomy. The heart size is within normal limits. Lungs are clear. Liquid barium and gas producing granules were given in the erect position as well as liquid barium in the prone oblique positions in order to perform a double contrast esophagram examination. During the oral and pharyngeal stages of deglutition there is laryngeal penetration. There is cricopharyngeal hypertrophy. Esophageal transport is prompt and efficient and there is no esophagitis stricture mucosal ring or hiatal hernia. Gastroesophageal reflux is not demonstrated on this examination. Impression: 1. There is laryngeal penetration. 2. Cricopharyngeal hypertrophy. 0.9 minutes of fluoro time was utilized for this procedure. Electronically Signed by MERVAT Eller 08/18/2019 05:55 P Electronically Signed by Daniel Lomas MD 08/19/2019 04:28 A
== END ==
LOC: M RAD 07:44
PROVIDERS: ATTEND Otolaryngology
DX: K21.9 Gastro-esophageal reflux disease without esophagitis (principal)

== ENCOUNTER → 2019-09-04 | Outpatient (REF) | payer MEDICARE ==
[~2019-09-04] MED LIST changes: -E-Z-GAS II EFFERVESCENT PACKET (SODIUM BICARB./CITRIC ACID/SIMETHICONE) As Ordered ONE; -E-Z-HD 98% w/w 340GM SUSP BTL As Ordered ONE; -E-Z-PAQUE 96% w/w SUSP 176GM BTL As Ordered ONE
== END ==
LOC: M LABDRAWC 16:13
PROVIDERS: ATTEND Otolaryngology
DX: K21.9 Gastro-esophageal reflux disease without esophagitis (principal)

== ENCOUNTER → 2019-09-04 | Outpatient (CLI) | payer MEDICARE ==
--- NOTE | 2019-09-05 07:56 | REP ---
LUMBOSACRAL SPINE: Five views of the lumbosacral spine are performed. No compression fracture is seen. There is normal lumbar lordosis with alignment. There is moderate diffuse spurring. There is mild disc space narrowing and subchondral sclerosis at all levels with a more moderate degree of disc space narrowing, subchondral sclerosis and vacuum at L4-5 and L5-S1. There is also sclerosis and spurring at the posterior facet joints at L4-5 and L5-S1. The posterior elements are intact. There is slight curvature towards the left. IMPRESSION: Degenerative changes as above. Electronically Signed by Tony De MD 09/06/2019 01:25 P
== END ==
LOC: M CLY 10:21
PROVIDERS: ATTEND Family Medicine
DX: M48.062 Spinal stenosis, lumbar region with neurogenic claudication (principal); M51.36 Other intervertebral disc degeneration, lumbar region; M51.37 Other intervertebral disc degeneration, lumbosacral region

== ENCOUNTER → 2019-09-04 | Outpatient (REF) | payer MEDICARE ==
[2019-09-04 18:04] LABS: HEMATOCRIT 33.3 % (42.0-52.0); HEMOGLOBIN 10.1 g/dl (13.5-17.5); MEAN CORPUSCULAR HEMOGLOBIN 28.1 pg (27.0-33.0); MEAN CORPUSCULAR HGB CONC 30.3 g/dl (32.0-36.5); MEAN CORPUSCULAR VOLUME 92.5 fl (80.0-96.0); PLATELET COUNT, AUTOMATED 284 10^3/uL (150-450); WHITE BLOOD COUNT 5.7 10^3/uL (4.0-10.0)
[2019-09-04 18:19] LABS: ALBUMIN 3.8 GM/DL (3.2-5.2); CALCIUM LEVEL 8.8 MG/DL (8.8-10.2); CHOLESTEROL RISK RATIO 2.679 (<5); CREATININE FOR GFR 1.68 MG/DL (0.70-1.30); GLOMERULAR FILTRATION RATE 42.5 (>42); PHOSPHORUS LEVEL 3.9 MG/DL (2.5-4.9); POTASSIUM SERUM 4.9 MEQ/L (3.5-5.1)
[2019-09-04 18:27] LABS: HEMOGLOBIN A1c 6.4 %
== END ==
LOC: M SFHCCLAY 10:28
PROVIDERS: ATTEND Family Medicine
DX: E11.9 Type 2 diabetes mellitus without complications (principal)

== ENCOUNTER → 2019-09-08 | Outpatient (CLI) | payer MEDICARE ==
--- NOTE | 2019-09-08 17:22 | REP ---
Right lower extremity deep vein duplex ultrasound: The deep veins demonstrate normal compression, normal Doppler color flow and normal Doppler waveforms with respiration and augmentation from the popliteal vein to the common femoral vein. Impression: There is no right lower extremity deep vein thrombus. Electronically Signed by Tony Mcguire MD 09/08/2019 05:14 P
== END ==
LOC: M RAD 16:36
PROVIDERS: ATTEND Family Medicine
DX: M79.89 Other specified soft tissue disorders (principal)

== ENCOUNTER → 2019-09-13 | Outpatient (REF) | payer MEDICARE | LOC: M LAB REF 17:27 | PROVIDERS: ATTEND Dermatology | DX: C44.311 Basal cell carcinoma of skin of nose (principal); L72.0 Epidermal cyst ==

== ENCOUNTER → 2019-10-03 | Outpatient (REF) | payer MEDICARE ==
[2019-10-03 17:30] LABS: CREATININE FOR GFR 1.83 MG/DL (0.70-1.30); GLOMERULAR FILTRATION RATE 38.5 (>42)
== END ==
LOC: M LABDRAWC 16:05
PROVIDERS: ATTEND Orthopaedic Surgery Orthopaedic Surgery of the Spine
DX: M51.36 Other intervertebral disc degeneration, lumbar region (principal)

== ENCOUNTER → 2019-12-12 | Outpatient (REF) | payer MEDICARE ==
[~2019-12-12] MED LIST changes: +VITA-243 PO; -VITA500T PO
== END ==
LOC: M LAB REF 11:42
PROVIDERS: ATTEND Dermatology
DX: C44.311 Basal cell carcinoma of skin of nose (principal); L90.5 Scar conditions and fibrosis of skin

== ENCOUNTER → 2019-12-15 | Outpatient (REF) | payer MEDICARE | LOC: M SFHCCLAY 15:24 | PROVIDERS: ATTEND Family Medicine | DX: T81.49XA Infection following a procedure, other surgical site, initial encounter (principal) ==

== ENCOUNTER → 2020-01-26 | Outpatient (REF) | payer MEDICARE ==
[2020-01-26 16:33] LABS: ALBUMIN 3.5 GM/DL (3.2-5.2); CALCIUM LEVEL 9.4 MG/DL (8.8-10.2); CREATININE FOR GFR 1.56 MG/DL (0.70-1.30); FREE T4 0.55 NG/DL (0.76-1.46); GLOMERULAR FILTRATION RATE 46.2 (>42); PHOSPHORUS LEVEL 3.4 MG/DL (2.5-4.9); POTASSIUM SERUM 4.9 MEQ/L (3.5-5.1); THYROID STIMULATING HORMONE 23.8 uIU/ML (0.358-3.740)
[2020-01-26 19:01] LABS: HEMOGLOBIN A1c 6.6 %
== END ==
LOC: M SFHCCLAY 13:06
PROVIDERS: ATTEND Family Medicine
DX: E11.9 Type 2 diabetes mellitus without complications (principal)

== ENCOUNTER → 2020-03-20 | Outpatient (REF) | payer MEDICARE ==
[~2020-03-20] MED LIST changes: +ACET-897 PO; +ACET650T15 PO; +AMIO200T3 PO; +AMLO1TAB33 PO; +AMLO2.5T3 PO; +ASPI-546 PO; -ASPI1TAB15 PO; +BENA25CA4 PO; +CLOP75TA2 PO; +FOCUS FACTOR PO; +FURO20TA2 PO; +MULTCAP PO; +PERC5TAB12 PO; +ROSU20TA5 PO; +SYNT25TA PO; +SYNT50TA PO; +TRAZ-257 PO; +XARE10TA PO
[2020-04-20 10:42] LABS: INR 0.92; PARTIAL THROMBOPLASTIN TIME 31.1 SECONDS (25.0-38.4); PLATELET COUNT, AUTOMATED 255 10^3/uL (150-450); PROTHROMBIN TIME 12.5 SECONDS (11.8-14.0)
== END ==
LOC: M SFHCCLAY 06:25
PROVIDERS: ATTEND Physician Assistant
DX: M47.817 Spondylosis without myelopathy or radiculopathy, lumbosacral region (principal); Z79.01 Long term (current) use of anticoagulants

== ENCOUNTER → 2020-05-06 | Outpatient (REF) | payer MEDICARE ==
[2020-05-06 12:40] LABS: HEMATOCRIT 35.5 % (42.0-52.0); HEMOGLOBIN 11.1 g/dl (13.5-17.5); MEAN CORPUSCULAR HEMOGLOBIN 28.6 pg (27.0-33.0); MEAN CORPUSCULAR HGB CONC 31.3 g/dl (32.0-36.5); MEAN CORPUSCULAR VOLUME 91.5 fl (80.0-96.0); PLATELET COUNT, AUTOMATED 321 10^3/uL (150-450); RED BLOOD COUNT 3.88 10^6/uL (4.30-6.10); WHITE BLOOD COUNT 5.6 10^3/uL (4.0-10.0)
[2020-05-06 12:51] LABS: ALBUMIN 3.7 GM/DL (3.2-5.2); BILIRUBIN,TOTAL 0.2 MG/DL (0.2-1.0); CALCIUM LEVEL 9.5 MG/DL (8.8-10.2); CREATININE FOR GFR 1.64 MG/DL (0.70-1.30); GLOMERULAR FILTRATION RATE 43.6 (>42); POTASSIUM SERUM 4.6 MEQ/L (3.5-5.1); TOTAL PROTEIN 6.8 GM/DL (6.4-8.2)
[2020-05-06 13:42] LABS: ERYTHROCYTE SEDIMENTATION RATE 33 mm/hr (0-20)
== END ==
LOC: M SFHCCLAY 11:17
PROVIDERS: ATTEND Nurse Practitioner Family
DX: E11.9 Type 2 diabetes mellitus without complications (principal); M16.11 Unilateral primary osteoarthritis, right hip

== ENCOUNTER → 2020-05-06 | Outpatient (CLI) | payer MEDICARE ==
--- NOTE | 2020-05-10 10:40 | REP ---
TWO-VIEW CHEST HISTORY: Preop right hip osteoarthritis. COMPARISON: 11/04/2018. TECHNIQUE: Two views of the chest are performed. FINDINGS: There is no acute infiltrate. There is mild fissural thickening inferiorly as seen on the lateral view, unchanged. Minor interstitial prominent in the lung bases is unchanged. Heart is normal in size. There is mild calcification of the thoracic aorta. Mediastinal silhouette is unchanged. There are multiple sternal wires and mediastinal clips present. There are degenerative changes of the spine. IMPRESSION: Stable chronic findings with no evidence of acute pulmonary disease. MTDD
== END ==
LOC: M CLY 08:01
PROVIDERS: ATTEND Nurse Practitioner Family
DX: Z01.818 Encounter for other preprocedural examination (principal); M16.11 Unilateral primary osteoarthritis, right hip

== ENCOUNTER → 2020-05-10 | Outpatient (CLI) | payer MEDICARE | LOC: M LABSMTC 10:33 | PROVIDERS: ATTEND Anesthesiology | DX: Z01.812 Encounter for preprocedural laboratory examination (principal); Z20.828 Contact with and (suspected) exposure to other viral communicable diseases | CPT/HCPCS: C9803; U0003 ==

== ENCOUNTER 2020-05-15 07:11 | Inpatient (IN) | payer MEDICARE ==
--- NOTE | 2020-05-13 11:09 | HPE ---
DATE OF ANTICIPATED ADMISSION: 05/15/2020 ATTENDING PHYSICIAN: Francisco Santizo MD CHIEF COMPLAINT: Right hip pain and stiffness. HISTORY: This is a 75-year-old male patient with progressively worsening right hip pain and stiffness who has failed to improve with conservative management. He has elected for surgery for his continued symptoms. He has had a steroid injection into his hip with some improvement but then return of his symptoms. X-rays are notable for end-stage degenerative changes of the right hip. Medical optimization is pending with Dr. Benedict. ALLERGIES: NON-STEROIDAL ANTI-INFLAMMATORY DRUGS (NSAIDs). CURRENT MEDICATIONS: - amiodarone 200 mg - rosuvastatin 20 mg - vitamin D2 - Plavix 75 mg, he will discontinue that as directed by Dr. Benedict 5 days prior to surgery - gabapentin 100 mg three times a day - metoprolol 25 mg, per the patient is twice a day - glimepiride 2 mg - B12 MEDICAL HISTORY: Includes: History of bladder cancer and stomach cancer. He has coronary artery disease, history of a myocardial infarction (LA), type 2 diabetes. He has had prior surgery on his stomach. He has had a hip replacement on the left side. He has had knee replacement on the left side as well. FAMILY HISTORY: Arthritis, cancer, high blood pressure, and heart disease. SOCIAL HISTORY: He is a former smoker. He denies alcohol use. REVIEW OF SYSTEMS: Denies fever or chills. Denies chest pains, shortness of breath, or cough. Denies difficulty breathing. Denies abdominal pain. Denies recent exposure to COVID-19. Denies any nausea or vomiting. Has persistent pain with weightbearing activities on his right side. Exam today reveals an alert male patient. He walks with a limping gait favoring his right side. There is irritability with hip range of motion on the right side. Straight leg raise testing is negative. Calf is soft, nontender to palpation. He can sense a light touch in the right lower extremity. Well- perfused right lower extremity. Neck is supple without adenopathy or jugular venous distension (JVD). Lungs: Clear to auscultation without rales or wheeze. Heart: Regular rate and rhythm. Abdomen: Bowel sounds are present. LABORATORY DATA: Includes: WBC count 5.6, RBC count of 3.8, hematocrit 35.8, hemoglobin 11.1, sedimentation rate is 33, glucose 138, BUN 25, creatinine not completed. Sodium 138, potassium 4.6. Chest x-ray not present for review. EKG pending with Dr. Noe office. CURRENT VITAL SIGNS: Height 5 foot 8 inches, weight 187 pounds, temperature 96.0, blood pressure 122/60, respirations 17, pulse 62, body mass index (BMI) of 28.4. IMPRESSION: Symptomatic osteoarthritis of right hip. PLAN: He is consented by Dr. Santizo for a right total hip arthroplasty. He was counseled about the discontinued non-steroidal anti-inflammatories (NSAIDs) 5 days prior to surgery, not to take any NSAIDs 5 days prior to surgery to include aspirin, and he will discontinue his Plavix per his primary family member caretaker, it should be at least 5 days prior to surgery, but I will defer that to his primary family member caretaker. He understands what nothing by mouth means and he will be nothing by mouth after midnight. He understands to be on time. He will complete his COVID testing and after his COVID testing he will self-quarantine. All of his questions were answered. RUSSELL
[2020-05-15] VITALS (8 sets, daily range): BP systolic 141–155; BP diastolic 62–98
[~2020-05-15] VITALS: Ht 167.6 cm; Wt 88.9 kg
[~2020-05-15 07:11] MED LIST changes: -ACET650T15 PO; -AMLO1TAB33 PO; -AMLO2.5T3 PO; -BENA25CA4 PO; -FOCUS FACTOR PO; -FURO20TA2 PO; +LR 1,000 ML IV ONE; -PERC5TAB12 PO; -SYNT50TA PO; -TRAZ-257 PO; -XARE10TA PO; +ceFAZolin SOD 2 GM in IV 1 EA IV ONE
[2020-05-15 07:45] LABS: INR 0.87
[2020-05-15] MEDS ORDERED: ePHEDrine INJ 50 MG/ML VIAL As Ordered ONE (07:52)
[2020-05-15] MEDS ORDERED: LIDOCAINE 2% 100MG/5ML SDV (FOR ANES.) As Ordered ONE (07:52)
[2020-05-15] MEDS ORDERED: MIDAZOLAM INJ 2MG/2ML VIAL (J2250 PER 1MG) As Ordered ONE (07:52)
[2020-05-15] MEDS ORDERED: fentaNYL 100 MCG/2 ML INJECTION (J3010) As Ordered ONE (07:52)
[2020-05-15] MEDS ORDERED: propofoL 500 MG/50 ML VIAL As Ordered ONE (07:52)
[2020-05-15] MEDS ORDERED: KETAMINE HCL 200 MG/20 ML VIAL As Ordered ONE (07:55)
[2020-05-15] MEDS ORDERED: TRANEXAMIC ACID 100 MG/ML 10ML VIAL As Ordered ONE (08:02)
[2020-05-15] MEDS ORDERED: ceFAZolin 1GM VIAL (J0690 PER 500MG) As Ordered ONE (08:02)
[2020-05-15] MEDS ORDERED: EPINEPHrine INJ 1 MG/ML 1ML AMP As Ordered ONE (08:03)
[2020-05-15] MEDS ORDERED: BUPIVACAINE LIPOSOME/PF 1.3% 20ML VIAL (13.3MG/ML)(EXPAREL)(C9290 PER1MG) As Ordered ONE (08:03)
[2020-05-15] MEDS ORDERED: AMLO1TAB33 PO (08:15)
[2020-05-15] MEDS ORDERED: TRAZ-257 PO (08:15)
[2020-05-15] MEDS ORDERED: FURO20TA2 PO (08:15)
[2020-05-15] MEDS ORDERED: GLYCOPYRROLATE INJ 0.2 MG/ML 2 ML VIAL As Ordered ONE (09:22)
[2020-05-15] MEDS ORDERED: ONDANSETRON 4MG/2ML VIAL As Ordered ONE (09:22)
[2020-05-15] MEDS ORDERED: PHENYLephrine HCL 500 MCG/5 ML (100MCG/ML) SYRINGE (J2370) As Ordered ONE (09:25)
[2020-05-15] MEDS ORDERED: fentaNYL 100 MCG/2 ML INJECTION (J3010) IV PRN (10:30)
[2020-05-15] MEDS ORDERED: MORPHINE 4 MG/ML 1ML VIAL/SYRINGE (J2270) IV PRN (10:30)
[2020-05-15] MEDS ORDERED: oxyCODONE 5MG TAB PO PRN (10:30)
[2020-05-15] MEDS ORDERED: ONDANSETRON 4MG/2ML VIAL IV PRN ×2 (10:30)
[2020-05-15] MEDS: LR 1,000 ML IV SCH ×2 (10:30→17:03)
[2020-05-15] MEDS ORDERED: ACETAMINOPHEN TAB 650MG DOSE (2X325MG) PO PRN (10:30)
[2020-05-15] MEDS ORDERED: LR 1,000 ML IV SCH (10:30)
[2020-05-15] MEDS ORDERED: DEXTROSE 50% 50 ML SYRINGE IV PRN (12:45)
[2020-05-15] MEDS ORDERED: GLUCAGON INJ 1MG VIAL SC PRN (12:45)
[2020-05-15] MEDS ORDERED: GLUCOSE 4GM CHEW TABLET PO PRN (12:45)
--- NOTE | 2020-05-15 12:45 | HPEPDOC ---
[facility] Medical History & Physical Date of Admission May 15, 2020 Date of Service: May 15, 2020 Attending Physician: Adina Bowen MD History and Physical HISTORY OF PRESENT ILLNESS: Patient is a 75-year-old male with past medical history of CAD s/p CABG, diabetes, hypertension, hyperlipidemia, hypothyroidism, history of GI bleed secondary to NSAIDs history of stomach MALT cancer, straight bladder cancer, history of skin cancer, osteoarthritis who on 05/15/2020 underwent total joint replacement of the right hip for progressively worsening right hip pain and stiffness failed to improve with conservative management. The patient has had steroid injections into the hip with only some improvement but then the pain would return. X-rays were notable for end-stage degenerative changes of the ri ght hip. He has a history of left hip replacement as well for similar issue. Surgery was done today without any complications. Patient is stable and medicine was consult it to follow. REVIEW OF SYSTEMS: CONSTITUTIONAL: Denies lack of energy, unexplained weight gain or weight loss, loss of appetite, fever, night sweats EYES: Denies eye drainage, eye pain, visual changes, dry/irritated eye EARS, NOSE, MOUTH, THROAT: Denies difficulty hearing, ringing in ears, mouth sores, loose teeth, sore throat, facial numbness or pain NECK: Denies swollen glands CARDIOVASCULAR: Denies irregular heartbeat, racing heart, chest pains, swelling of feet or legs, pain in legs with walking RESPIRATORY: Denies shortness of breath, night sweats, wheezing, sputum production, oxygen at home, coughing up blood, cough lasting > 1 month GASTROINTESTINAL: Denies abdominal pain, constipation, bloody stool, diarrhea, heartburn, nausea, vomiting GENITOURINARY: Denies painful urination, bloody urine, frequent urination, urgency, leaking urine, impotence MUSCULOSKELETAL: Denies leg swelling INTEGUMENTARY: Denies rash, itching, new skin lesion, change in existing skin lesion, hair loss or increase, breast changes. NEUROLOGICAL: Denies headaches, dizziness, difficulty walking, numbness or ti ngling PSYCHIATRIC: Denies depression, anxiety, recurrent bad thoughts, mood swings, hallucinations PAST MEDICAL HISTORY: 1. Coronary artery disease, MD s/p CABG 2. Hyperlipidemia 3. Diabetes mellitus type II 4. Hypothyroidism 5. History of stomach- MALT 2016 s/p radiation 6. Hx of Barretts esophagus 7. OA 8. Hx of skin cancer 9. CKD Stage III 10. Hx of cancer behind eye 11. Hx of bladder cancer s/p chemotherapy 12. Hx of GI bleed 2/2 to NSAIDs 13. HTN PAST SURGICAL HISTORY: 1. Total joint replacement of right hip 05/15/2020 2. Ankle surgery with hardware placed 3. Back surgery 4. Bladder surgery 5. Hx of colonoscopy 6. Right foot sugery 7. Multiple skin cancer removals 8. CABG 2018 9. Left total hip replacement 10. Upper GI endoscopy, several FAMILY HISTORY: Father: lung cancer, 92 y/o Mother: CAD, "breast issue", Alive at 99 y/o SOCIAL HISTORY: 1/2 pack per day smoker for 20 years. Quit 10 years ago. Drinks alcohol socially. Denies drug use. Lives with his in the local area. CardiologyDr. Jeremiah. Primary careDr. Jak. NephrologyDr. Padma. Orthopedic surgeryDr. Sukhdev. ALLERGIES: Please see below. HOME MEDICATIONS: Please see below. PHYSICAL EXAMINATION: VS: Please see below CONSTITUTIONAL: No acute distress, resting comfortably, AAO x 3 EYES: PERRLA, EOM intact HENT, MOUTH: Normocephalic, atraumatic, moist mucous membranes, NECK: SUPPLE, no JVD, no lymphadenopathy, no carotid bruit CV: Regular rate and rhythm, S1S2 normal, no murmurs/rubs/gallops RESPIRATORY: Clear to auscultation bilaterally, no rales/rhonchi/wheezes GI: BS positive in 4 quadrants, soft, nontender, nondistended, no rebound or guarding, no organomegaly : Deferred MUSCULOSKELETAL: ROM not tested, bandage over right hip where incision is, appears clean. No cyanosis, clubbing, swelling, joint deformity, extremity edema INTEGUMENTARY: Intact, no rashes, no lesions, no erythema NEUROLOGIC: Cranial Nerves II-XII are intact, no focal deficits PSYCHIATRIC: Mood and affect are normal LABORATORY DATA: Please see below IMAGING: Hip XR 05/15/20: F/u results ASSESSMENT: 75-year-old male with past medical history of CAD s/p CABG, diabetes, hypertension, CKD, hyperlipidemia, hypothyroidism, history of GI bleed secondary to NSAIDs history of stomach MALT cancer, straight bladder cancer, history of skin cancer, osteoarthritis who on 05/15/2020 underwent total joint replacement of the right hip for progressively worsening right hip pain and stiffness failed to improve with conservative management. Admitted post- operatively. PLAN: 1. Osteoarthritis s/p total right hip replacement POD #0. -Pain controlled with regimen -PT/OT per ortho, wound care to incision site -Ortho primary 2. CAD s/p CABG -resume all home meds except clopidogrel- resume when safe from ortho 3. CKD Stage III -Cr baseline is 1.5-2. Currently 1.6 -Recommend d/c IVFs, resume home meds -Monitor labs 4. HLD -resume statin 5. Hypothyroidism -resume levothyroxine 6. HTN -resume home meds 7. DVT px -Xarelto DISPOSITION: Currently inpatient. Plan is discharge home to prior living situation. PT/OT. Thank you kindly for this consult. Vital Signs Vital Signs Date Time Temp Pulse Resp B/P (MAP) Pulse Ox O2 Delivery O2 Flow Rate FiO2 05/15/20 11:30 98.2 75 17 143/98 (113) 94 Room Air Laboratory Data Labs 24H Laboratory Tests 2 05/15/20 07:23: Prothrombin Time 12.0, Prothromb Time International Ratio 0.87 05/15/20 07:50: Bedside Glucose (Misc Panel) 94 Home Medications Scheduled Amiodarone HCl (Amiodarone HCl) 200 Mg Tablet, 200 MG PO DAILY Amlodipine/Atorvastatin (Amlodipine-Atorvast 2.5-20 mg) 1 Each Tablet, 2.5 TAB PO DAILY Clopidogrel Bisulfate (Clopidogrel) 75 Mg Tablet, 75 MG PO DAILY Docusate Sodium (Colace) 100 Mg Cap, 100 MG PO DAILYPRN Furosemide (Furosemide) 20 Mg Tablet, 10 MG PO 3XW Levothyroxine Sodium (Synthroid) 25 Mcg Tablet, Unknown Dose PO DAILY Multivitamin (Multivitamins) 1 Each Capsule, 1 CAP PO DAILY Rosuvastatin Calcium (Rosuvastatin Calcium) 20 Mg Tablet, 20 MG PO DAILY Trazodone HCl (Trazodone HCl) 100 Mg Tablet, 100 MG PO QPM Scheduled PRN Acetaminophen (Tylenol Extra Strength) 500 Mg Tablet, 500 MG PO PRN PRN for PAIN Allergies Coded Allergies: NSAIDS (Non-Steroidal Anti-Inflamma (Verified Adverse Reaction, Severe, GI bleed, 05/08/20) naproxen (Verified Adverse Reaction, Severe, GI bleed, 05/08/20) A-FIB/CHADSVASC A-FIB History Current/History of A-Fib/PAF?: No Current PO Anticoag Therapy: Yes Age/Risk Factor Scoring CHADSVASC: CHADSVASC Response (Comments) Value Age Risk Factor Age >/= 75 years old 2 Gender Risk Factor Male 0 Hx of CHF No 0 Hx of HTN Yes 1 Hx of Stroke/TIA/or VTE No 0 Hx of Diabetes Yes 1 Hx of Vascular Disease No 0 Total 4 Treatment Treatment ordered: Rivaroxaban Adina Bowen MD May 15, 2020 12:45
[2020-05-15] MEDS ORDERED: AMLO2.5T3 PO (13:07)
[2020-05-15] MEDS ORDERED: BENA25CA4 PO (13:07)
[2020-05-15] MEDS ORDERED: SYNT50TA PO (13:07)
[2020-05-15] MEDS ORDERED: ACET650T15 PO (13:07)
[2020-05-15] MEDS ORDERED: FOCUS FACTOR PO (13:08)
[2020-05-15] MEDS: PERCOCET 5MG/325MG TAB PO PRN ×2 (13:39→21:30)
[2020-05-15] MEDS: HumaLOG INSULIN (NovoLOG) PER UNIT SC SCH ×2 (16:58→21:00)
[2020-05-15] MEDS: ceFAZolin SOD 2 GM in IV 1 EA IV SCH (16:58)
[2020-05-15] MEDS: MORPHINE 4 MG/ML 1ML VIAL/SYRINGE (J2270) IV PRN (23:16)
[2020-05-16] MEDS: MORPHINE 4 MG/ML 1ML VIAL/SYRINGE (J2270) IV PRN (01:25)
[2020-05-16] MEDS: ceFAZolin SOD 2 GM in IV 1 EA IV SCH (01:25)
[2020-05-16 02:00] VITALS: BP 152/78
[2020-05-16] MEDS: PERCOCET 5MG/325MG TAB PO PRN ×2 (04:38→12:52)
[2020-05-16 06:00] VITALS: BP 139/78
[2020-05-16 07:28] LABS: HEMATOCRIT 29.7 % (42.0-52.0); HEMOGLOBIN 9.4 g/dl (13.5-17.5); MEAN CORPUSCULAR HEMOGLOBIN 28.3 pg (27.0-33.0); MEAN CORPUSCULAR HGB CONC 31.6 g/dl (32.0-36.5); MEAN CORPUSCULAR VOLUME 89.5 fl (80.0-96.0); PLATELET COUNT, AUTOMATED 231 10^3/uL (150-450); RED BLOOD COUNT 3.32 10^6/uL (4.30-6.10); WHITE BLOOD COUNT 8.9 10^3/uL (4.0-10.0)
[2020-05-16 07:30] VITALS: BP 114/53
[2020-05-16 07:50] LABS: ALBUMIN 2.9 GM/DL (3.2-5.2); BILIRUBIN,TOTAL 0.4 MG/DL (0.2-1.0); CALCIUM LEVEL 8.5 MG/DL (8.8-10.2); CREATININE FOR GFR 1.38 MG/DL (0.70-1.30); GLOMERULAR FILTRATION RATE 53.2 (>42); POTASSIUM SERUM 4.5 MEQ/L (3.5-5.1); TOTAL PROTEIN 5.8 GM/DL (6.4-8.2)
[2020-05-16] MEDS: MIRALAX *UNIT DOSE* 17GM PACKET PO SCH (08:58)
[2020-05-16] MEDS: MOM 30ML SUSPENSION UDC PO SCH (08:58)
[2020-05-16] MEDS: MORPHINE 15 MG SA TAB PO SCH ×2 (08:59→20:49)
[2020-05-16] MEDS: HumaLOG INSULIN (NovoLOG) PER UNIT SC SCH ×4 (09:01→21:00)
[2020-05-16 14:00] VITALS: BP 140/82
[2020-05-16] MEDS ORDERED: RIVAROXABAN 10 MG TAB (XARELTO) PO SCH (18:00)
[2020-05-16] MEDS ORDERED: ACETAMINOPHEN 650MG ER TAB (TYLENOL ARTHRITIS) PO PRN (21:30)
[2020-05-16] MEDS ORDERED: diphenhydrAMINE 25MG CAP PO PRN (21:30)
[2020-05-16 22:00] VITALS: BP 142/62
[2020-05-17] MEDS: PERCOCET 5MG/325MG TAB PO PRN (03:33)
[2020-05-17] MEDS: LEVOTHYROXINE 50MCG TABLET (0.05MG) PO SCH (05:54)
[2020-05-17 06:00] VITALS: BP 134/69
[2020-05-17 06:13] LABS: HEMATOCRIT 30.3 % (42.0-52.0); HEMOGLOBIN 9.6 g/dl (13.5-17.5); MEAN CORPUSCULAR HEMOGLOBIN 28.6 pg (27.0-33.0); MEAN CORPUSCULAR HGB CONC 31.7 g/dl (32.0-36.5); MEAN CORPUSCULAR VOLUME 90.2 fl (80.0-96.0); PLATELET COUNT, AUTOMATED 226 10^3/uL (150-450); RED BLOOD COUNT 3.36 10^6/uL (4.30-6.10); WHITE BLOOD COUNT 12.5 10^3/uL (4.0-10.0)
[2020-05-17 06:48] LABS: BILIRUBIN,TOTAL 0.6 MG/DL (0.2-1.0); CALCIUM LEVEL 8.5 MG/DL (8.8-10.2); CREATININE FOR GFR 2.18 MG/DL (0.70-1.30); GLOMERULAR FILTRATION RATE 31.4 (>42); POTASSIUM SERUM 4.6 MEQ/L (3.5-5.1); TOTAL PROTEIN 6.1 GM/DL (6.4-8.2)
[2020-05-17] MEDS: HumaLOG INSULIN (NovoLOG) PER UNIT SC SCH ×4 (07:30→21:00)
[2020-05-17] MEDS: AMIODARONE 200 MG TAB (PACERONE) PO SCH (09:00)
[2020-05-17] MEDS ORDERED: FUROSEMIDE 10MG PER 1/2 TABLET PO SCH (09:00)
[2020-05-17] MEDS: MIRALAX *UNIT DOSE* 17GM PACKET PO SCH (09:08)
[2020-05-17] MEDS: MOM 30ML SUSPENSION UDC PO SCH (09:08)
[2020-05-17] MEDS: BISACODYL 10 MG SUPP PR SCH ×2 (09:09→21:09)
[2020-05-17] MEDS: ROSUVASTATIN 10 MG TAB (CRESTOR) PO SCH (09:11)
--- NOTE | 2020-05-17 10:33 | REPVR ---
PROCEDURE INFORMATION: Exam: XR Abdomen, 1 View Exam date and time: 05/17/2020 9:56 AM Age: 75 years old Clinical indication: Abdominal tenderness; Additional info: R/O ileus vs. Sbo TECHNIQUE: Imaging protocol: XR of the abdomen. Views: Frontal supine view of the abdomen. 1 View. COMPARISON: CT ABD PELVIS W/O FOL BY WIT 01/06/2019 10:14 AM FINDINGS: Gastrointestinal tract: There is moderate stool and gas in the colon. Mild gaseous distension multiple small bowel loops. Overall, findings most likely represent an ileus. There is a small amount of air in the rectum. Vasculature: There are vascular calcifications in the pelvis bilaterally. Bones/joints: Multilevel degenerative disc disease in the lumbar spine with minimal levoconvex lumbar scoliosis. Bilateral hip arthroplasties partially included. Soft tissues: There are surgical skin digna in the right lower quadrant. IMPRESSION: 1. Findings most likely representing an ileus. Electronically signed by: Alma Schwartz On 05/17/2020 10:32:59 AM
[2020-05-17] MEDS: NS 1,000 ML IV SCH (10:52)
--- NOTE | 2020-05-17 10:56 | IPN ---
DATE: 05/15/2020 Patient is seen and examined. He wishes to go ahead with a right hip arthroplasty. He is having some pain from his hip down his leg to his knee which may be related to his hip pain and we discussed this today. It could be back related as well but he does have advanced hip arthritis and wishes to go ahead with hip replacement. He understands the nature of this, the risks of bleeding, infection, damage to nerves, vessels, persistent pain, wear, loosening, dislocation, leg length inequality, blood clots, medical problems, , among others. RUSSELL
--- NOTE | 2020-05-17 10:58 | RO ---
DATE OF OPERATION: May 15, 2020 PREOPERATIVE DIAGNOSIS: Right hip osteoarthritis. POSTOPERATIVE DIAGNOSIS: Right hip osteoarthritis. PROCEDURE: Right total hip arthroplasty using a Reynolds size 6 high-offset with a +1.5 36 ball, 58 acetabular component, and neutral liner. SURGEON: Francisco Santizo M.D. [employer] ATTENDANT: Aris Samano. ANESTHESIA: Spinal. ESTIMATED BLOOD LOSS: 200. COMPLICATIONS: None. INDICATIONS: This is a 75-year-old with gradually worsening hip arthritis who wished to go ahead with a hip replacement. DESCRIPTION OF PROCEDURE: The patient was taken to the operating room and placed in the left lateral decubitus position on the Kevin positioner. The right hip was prepped and draped in the usual sterile fashion. Timeout was performed. A longitudinal incision was made over the lateral aspect of the hip. Sharp dissection was carried down through subcutaneous tissue and controlled hemostasis with cautery. I incised the fascia helen and then divided the anterior 40% or so of the abductor off of the anterior aspect of the hip, exposing the neck and divided the labrum. We dislocated the hip without difficulty. I then used the canal initiating reamer, the canal finding reamer, the lateralizing reamer, and I sequentially reamed up to a size 6, which had good purchase and good fit. I then made the neck cut at about of a finger breadth up from the lesser trochanter with a broach as a template. The head was removed. We then placed the anterior and posterior retractors and removed soft tissue from around the acetabulum. I then sequentially reamed up to a size 57 reamer and medialized this to some degree. I got excellent bleeding bone and concentric reaming. The cup was irrigated and I then impacted a 58 acetabular component in the appropriate amount of anteversion, horizontal tilt. Excellent fit was noted. There was a small osteophyte anteriorly which was removed with an osteotome and rongeur. I then impacted in the actual liner and made sure this was well seated; it was a 58 x 36. Attention was directed to the femur. I then sequentially broached up to a size 6, which had a good fit and fill. The trial components were then placed. I elected to go with a high-offset because he did have a very varus neck preoperatively and I had medialized slightly the acetabulum. The 1.5 high-offset size 6 was an excellent fit and had excellent soft tissue tension and minimal Shuck in full extension, excellent stability in extension and external rotation, and flexion and internal rotation. I then removed the trial components, irrigated, and placed the actual size 6 high-offset, impacted this in place. I added a little bit of bone graft medially on the proximal stem. I then dried the stem, impacted in the 36 1.5 ball, and made sure it was well seated. We reduced the hip, put the hip through a range of motion, again very pleased with stability and position and range of motion. There was no impingement. Copious irrigation was performed. I repaired the minimus with #1 Vicryl sutures. I placed the TXA deep in the wound, repaired the remaining abductors, and irrigated as I went. Excellent repair of the abductor was noted. I then irrigated and repaired the fascia helen with #1 Vicryl sutures and running Stratafix suture, and the subcutaneous with 2-0 Vicryl, and the skin with digna. Sterile dressings were applied. He was taken to the recovery room in stable condition. There were no known complications. The plan will be routine postoperative. The executive marketing assistant was instrumental in holding retractors, assisting in reducing and dislocating the hip, and assisting in wound closure. RUSSELL
[2020-05-17 14:00] VITALS: BP 140/61
[2020-05-17] MEDS ORDERED: traMADol 50 MG TAB PO PRN (14:00)
[2020-05-17] MEDS ORDERED: ACETAMINOPHEN 500 MG TAB PO SCH (14:00)
[2020-05-17] MEDS ORDERED: ACETAMINOPHEN 650 MG SUPP PR PRN ×2 (14:15→15:30)
[2020-05-17] MEDS ORDERED: KETOROLAC 30 MG/ML 1ML VIAL IV PRN (14:30)
--- NOTE | 2020-05-17 15:45 | IPNPDOC ---
Date Seen The patient was seen on 05/17/20. Progress Note SUBJECTIVE: Patient's given was distended, abdominal x-ray showing ileus. Patient made nothing by mouth. He spiked a fever of 101, WBC 12.5, increased tachycardia with an episode of hypoxia in 70's this afternoon, placed on 4 L NC. Stat chest x-ray is ordered to rule out pulmonary cause of sepsis, UA sent. He is also been having some urinary retention with bladder scan showing [id number] cc, russo catheter placed. Patient denies chest pain, increased shortness of breath, chills, nausea or vomiting. OBJECTIVE VS: Please see below CONSTITUTIONAL: No acute distress, resting comfortably, AAO x 3 EYES: PERRLA, EOM intact HENT, MOUTH: Normocephalic, atraumatic, moist mucous membranes, NECK: SUPPLE, no JVD, no lymphadenopathy, no carotid bruit CV: Regular rate and rhythm, S1S2 normal, no murmurs/rubs/gallops RESPIRATORY: Clear to auscultation bilaterally, no rales/rhonchi/wheezes GI: BS positive in 4 quadrants, soft, nontender, nondistended, no rebound or guarding, no organomegaly : Deferred MUSCULOSKELETAL: ROM not tested, bandage over right hip where incision is, appears clean. No cyanosis, clubbing, swelling, joint deformity, extremity edema INTEGUMENTARY: Intact, no rashes, no lesions, no erythema NEUROLOGIC: Cranial Nerves II-XII are intact, no focal deficits PSYCHIATRIC: Mood and affect are normal LABORATORY DATA: Please see below IMAGING: Hip XR 05/15/20: F/u results ASSESSMENT: 75-year-old male with past medical history of CAD s/p CABG, diabetes, hypertension, CKD, hyperlipidemia, hypothyroidism, history of GI bleed secondary to NSAIDs history of stomach MALT cancer, straight bladder cancer, history of skin cancer, osteoarthritis who on 05/15/2020 underwent total joint replacement of the right hip for progressively worsening right hip pain and stiffness failed to improve with conservative management. PLAN: SIRS, r/o cause of possible sepsis -Fever of 101, WBC 12.5, increased tachycardia with an episode of hypoxia in 70's this afternoon, placed on 4 L NC -CXR, UA, blood cultures x2 sets pending. Incision site where surgery took place appears clean- discussed with ortho suction worker today -On NS at 100 cc/hr, monitor for s/s of fluid overload with hx of CHF/CAD s/p CABG -Starting on Ceftriaxone prophylactically Ileus likely 2/2 to dehydration and worsened by narcotics -Identified on KUB today -Distended abdomen, tympanic with BS present -No BM since before surgery, states that he just started passing gas this afternoon. -NPO, IVFs -Can consult surgery if progresses Shortness of breath r/o PNA, atelectasis or CHF exacerbation -Stat CXR ordered -F/u BNP, troponin. If elevated, consider call to Dr. Daniels (pt's unit manager [employer]) and look for old echo on file -Incentive spirometry Q2 hrs while awake -Started only on Ceftriaxone for now prophylactically Hypotension likely 2/2 to decreased PO intake, possibly SIRS, evolving sepsis -Improved with IVFs -Keep on IVFs, treat SIRS above Tachycardia poss 2/2 to SIRS/sepsis possible vs. bleeding? post-op -F/u CBC STAT with increased bleeding at the incision site per nurse -Ortho not suspicious of bleed at surgery site this current time -If further suspicion of bleed, stop lovenox, toradol and do STAT CT of right hip to look for hematoma CKD Stage III -Cr elevated to 2.18. Today, hard to say baseline but likely 1.5-2 Osteoarthritis s/p total right hip replacement POD #2. -Pain control switched to IV -PT/OT on hold until VS stabilize, wound care to incision site -Ortho primary CAD s/p CABG -Holding PO cardiac meds currently. Resume when taking PO HLD -hold PO statin Hypothyroidism -Hold PO levothyroxine HTN -Hold home meds DVT px -Lovenox DISPOSITION: Moving to PCU today w/tele. Ortho primary and updated on transfer/changes to care. VS, I&O, 24H, Fishbone Vital Signs/I&O Vital Signs Date Time Temp Pulse Resp B/P (MAP) Pulse Ox O2 Delivery O2 Flow Rate FiO2 05/17/20 14:00 101.0 107 17 140/61 (87) 92 Room Air I&O- Last 24 Hours up to 6 AM 05/17/20 06:00 Intake Total 1045 ml Output Total 1235 ml Balance -190 ml Laboratory Data 24H LABS Laboratory Tests 2 05/16/20 16:30: Bedside Glucose (Misc Panel) 114H 05/16/20 20:03: Bedside Glucose (Misc Panel) 103 05/17/20 05:54: Nucleated Red Blood Cells % (auto) 0.0, Anion Gap 8, Glomerular Filtration Rate 31.4L, Calcium Level 8.5L, Total Bilirubin 0.6, Aspartate Amino Transf (AST/SGOT) 48H, Alanine Aminotransferase (ALT/SGPT) 27, Alkaline Phosphatase 75, Total Protein 6.1L, Albumin 3.0L, Albumin/Globulin Ratio 1.0 05/17/20 11:33: Bedside Glucose (Misc Panel) 114H 05/17/20 15:29: CBC/BMP Laboratory Tests 05/17/20 05:54 Current Medications Current Medications Medications (Trade) Dose Ordered Sig/Rhett Route PRN Reason Start Time Stop Time Status Last Admin Dose Admin Acetaminophen (Tylenol Arthritis Er) 650 mg Q8HP PRN PO PAIN 05/16/20 21:30 Cancel Acetaminophen (Tylenol Suppository) 650 mg Q4HP PRN NC PAIN / FEVER 05/17/20 15:30 Acetaminophen (Tylenol Suppository) 650 mg Q6HP PRN NC PAIN / FEVER 05/17/20 14:15 05/17/20 14:31 DC Acetaminophen (Tylenol Tab) 650 mg Q4HP PRN PO TEMPERATURE, PAIN LEVEL 1-4 05/15/20 10:30 Cancel Acetaminophen (Tylenol Tab) 1,000 mg Q8H PO 05/17/20 14:00 05/17/20 14:09 DC Amiodarone HCl (Pacerone, Cordarone) 200 mg MoWeFr@0900 PO 05/17/20 09:00 Amlodipine Besylate (Norvasc) 2.5 mg DAILY PO 05/17/20 09:00 Bisacodyl (Dulcolax Suppository) 10 mg BID NC 05/17/20 09:00 05/17/20 09:09 Cefazolin Sodium/ Dextrose 2 gm/IV Miscellaneous Supplies 50 ml @ 75 mls/hr Q8H IV 05/15/20 17:00 05/16/20 01:39 DC 05/16/20 01:25 Dextrose (Dextrose 50%) 25 ml ASDIRECTED PRN IV SEE LABEL COMMENTS 05/15/20 12:45 Diphenhydramine HCl (Benadryl) 25 mg Q6H PRN PO ALLERGIES 05/16/20 21:30 05/17/20 03:35 Fentanyl Citrate (Sublimaze) 25 mcg Q5MP PRN IV PAIN LEVEL 5-10 05/15/20 10:30 05/15/20 11:30 DC Furosemide (Lasix) 10 mg MoWeFr@0900 PO 05/17/20 09:00 05/17/20 09:07 DC Glucagon (Glucagon) 1 mg ASDIRECTED PRN SC SEE LABEL COMMENTS 05/15/20 12:45 Glucose (Glucose) 16 GM ASDIRECTED PRN PO SEE LABEL COMMENTS 05/15/20 12:45 Home Med (Med Rec Complete!) ASDIRECTED XX 05/15/20 13:15 05/15/20 13:10 DC Insulin Human Lispro (HumaLOG INSULIN) SEE PROTOCOL TABLE AC SC 05/15/20 17:30 05/17/20 13:29 Insulin Human Lispro (HumaLOG INSULIN) SEE PROTOCOL TABLE QHS SC 05/15/20 21:00 Ketorolac Tromethamine (ToRADol) 15 mg Q8H PRN IV PAIN LEVEL 6-10 05/17/20 14:30 05/17/20 15:18 Lactated Ringer's 1,000 ml @ 70 mls/hr [id number] IV 05/15/20 10:30 05/16/20 01:35 DC 05/15/20 17:03 Lactated Ringer's 1,000 ml @ 80 mls/hr [id number] IV 05/15/20 10:30 05/15/20 11:30 DC Levothyroxine Sodium (Synthroid) 50 mcg QAM@0600 PO 05/17/20 06:00 05/17/20 05:54 Magnesium Hydroxide (Milk Of Magnesia) 30 ml DAILY PO 05/16/20 09:00 05/17/20 14:31 DC 05/17/20 09:08 Morphine Sulfate (Morphine Sulfate Inj) 2 mg Q2H PRN IV PAIN LEVEL 4-7 05/15/20 10:30 05/16/20 06:10 DC 05/15/20 14:25 Morphine Sulfate (Morphine Sulfate Inj) 3 mg Q2H PRN IV PAIN LEVEL 8-10 05/15/20 10:30 05/16/20 06:10 DC 05/16/20 01:25 Morphine Sulfate (Ms Contin) 15 mg BID PO 05/16/20 09:00 05/17/20 13:57 DC 05/16/20 20:49 Ondansetron HCl (ZOFRAN INJection) 4 mg Q4HP PRN IV NAUSEA OR VOMITING 05/15/20 10:30 05/15/20 11:30 DC Ondansetron HCl (ZOFRAN INJection) 4 mg Q6H PRN IV NAUSEA 05/15/20 10:30 05/17/20 14:31 DC 05/15/20 14:24 Oxycodone HCl (Roxicodone, Oxyir) 5 mg ASDIRECTED PRN PO PAIN LEVEL 1-4 05/15/20 10:30 05/15/20 11:30 DC Oxycodone/ Acetaminophen (Percocet 5mg/ 325mg Tablet) 2 tab Q4H PRN PO PAIN 7-10 05/15/20 10:30 05/17/20 13:57 DC 05/17/20 03:33 Polyethylene Glycol (Miralax) 1 pkt DAILY PO 05/16/20 09:00 05/17/20 14:31 DC 05/17/20 09:08 Rivaroxaban (Xarelto) 10 mg DAILY@18 PO 05/16/20 18:00 05/16/20 17:40 Rosuvastatin Calcium (Crestor) 20 mg DAILY PO 05/17/20 09:00 05/17/20 09:11 Sodium Chloride 1,000 ml @ 100 mls/hr Q10H IV 05/17/20 09:15 05/17/20 10:52 Tramadol HCl (Ultram) 50 mg Q6HP PRN PO SEVERE PAIN (PS 8-10) 05/17/20 14:00 05/17/20 14:31 DC Trazodone HCl (Desyrel) 100 mg QHS PO 05/17/20 21:00 Allergies Coded Allergies: NSAIDS (Non-Steroidal Anti-Inflamma (Verified Adverse Reaction, Severe, GI bleed, 05/08/20) naproxen (Verified Adverse Reaction, Severe, GI bleed, 05/08/20) Adina Bowen MD May 17, 2020 15:45
[2020-05-17 16:04] LABS: HEMATOCRIT 28.4 % (42.0-52.0); HEMOGLOBIN 8.9 g/dl (13.5-17.5); RED BLOOD COUNT 3.14 10^6/uL (4.30-6.10); WHITE BLOOD COUNT 10.1 10^3/uL (4.0-10.0)
[2020-05-17 16:05] LABS: MEAN CORPUSCULAR HEMOGLOBIN 28.3 pg (27.0-33.0); MEAN CORPUSCULAR HGB CONC 31.3 g/dl (32.0-36.5); MEAN CORPUSCULAR VOLUME 90.4 fl (80.0-96.0); PLATELET COUNT, AUTOMATED 219 10^3/uL (150-450)
[2020-05-17] MEDS: cefTRIAXone SOD 1 GM in D5W MINI-BAG PLUS 50 ML IV SCH (16:07)
--- NOTE | 2020-05-17 16:08 | REPVR ---
PROCEDURE INFORMATION: Exam: XR Chest, 1 View Exam date and time: 05/17/2020 3:34 PM Age: 75 years old Clinical indication: Shortness of breath; Additional info: SOB TECHNIQUE: Imaging protocol: XR of the chest Views: 1 view. COMPARISON: 1. CR CHEST 2 VIEW 11/04/2018 10:36 AM 2. CR - Abdomen,Flat Plate KUB 05/17/2020 10:01:36 AM FINDINGS: Lungs: There is minimal left basilar and right infrahilar atelectasis versus pneumonia. Minimal peripheral opacity in the right lower chest, favor atelectasis or scar over pneumonia. Pleural space: There is new minimal blunting of the left costophrenic angle which may be from basilar pleural thickening or minimal pleural fluid. Heart/Mediastinum: Heart size is upper normal. Vasculature: Aorta is tortuous and ectatic. Diaphragm: There is mild elevation of the left hemidiaphragm. Bones/joints: Median sternotomy has been performed. There is severe osteoarthritis at the left glenohumeral joint. IMPRESSION: 1. Minimal left basilar and right infrahilar atelectasis versus pneumonia. 2. Blunting of the left costophrenic angle which may be minimal pleural fluid or basilar pleural thickening. 3. Tortuous ectatic aorta. Electronically signed by: Alma Schwartz On 05/17/2020 16:07:45 PM
[2020-05-17 16:31] LABS: TROPONIN I 0.03 NG/ML (< 0.10)
[2020-05-17 17:00] VITALS: BP 138/64
[2020-05-17 20:00] VITALS: BP 111/62
[2020-05-17] MEDS ORDERED: ENOXAPARIN 30MG/0.3ML SYRINGE (J1650 PER 10MG) SC SCH (21:00)
[2020-05-17] MEDS: traZODone 100 MG TAB PO SCH (21:09)
[2020-05-18] VITALS: BP 149/69
[2020-05-18] MEDS: NS 1,000 ML IV SCH ×2 (00:26→09:43)
[2020-05-18 04:00] VITALS: BP 122/58
[2020-05-18 04:50] LABS: HEMOGLOBIN 8.4 g/dl (13.5-17.5); MEAN CORPUSCULAR HEMOGLOBIN 28.5 pg (27.0-33.0); MEAN CORPUSCULAR HGB CONC 31.1 g/dl (32.0-36.5); MEAN CORPUSCULAR VOLUME 91.5 fl (80.0-96.0); PLATELET COUNT, AUTOMATED 222 10^3/uL (150-450); RED BLOOD COUNT 2.95 10^6/uL (4.30-6.10); WHITE BLOOD COUNT 8.9 10^3/uL (4.0-10.0)
[2020-05-18 05:28] LABS: ALBUMIN 2.4 GM/DL (3.2-5.2); BILIRUBIN,TOTAL 0.4 MG/DL (0.2-1.0); CALCIUM LEVEL 8.3 MG/DL (8.8-10.2); CREATININE FOR GFR 1.76 MG/DL (0.70-1.30); GLOMERULAR FILTRATION RATE 40.2 (>42); POTASSIUM SERUM 4.2 MEQ/L (3.5-5.1); TOTAL PROTEIN 5.9 GM/DL (6.4-8.2)
[2020-05-18] MEDS: HumaLOG INSULIN (NovoLOG) PER UNIT SC SCH ×5 (06:00→21:00)
[2020-05-18] MEDS: LEVOTHYROXINE 50MCG TABLET (0.05MG) PO SCH (06:32)
[2020-05-18 08:00] VITALS: BP 140/68
[2020-05-18] MEDS: BISACODYL 10 MG SUPP PR SCH ×2 (09:42→21:42)
[2020-05-18] MEDS: ROSUVASTATIN 10 MG TAB (CRESTOR) PO SCH (09:42)
[2020-05-18] MEDS ORDERED: traMADol 50 MG TAB PO PRN (10:30)
[2020-05-18 12:00] VITALS: BP 155/70
[2020-05-18] MEDS: MIRALAX *UNIT DOSE* 17GM PACKET PO SCH (12:56)
[2020-05-18] MEDS: DOCUSATE SODIUM 100 MG CAP PO SCH ×2 (12:56→21:42)
--- NOTE | 2020-05-18 15:53 | IPNPDOC ---
Date Seen The patient was seen on 05/18/20. Progress Note SUBJECTIVE: 3 BM's today, passing gas. Restarted oral meds and diet. Afebrile since 05/17/20 at 4 PM. WBC wnl, Cr improved to 1.76. Remains on 2 L NC which we will aggressively try to wean off. Abx to continue until prelim blood cultures return. Feels overall improved. OOBTC with all meals, TID. Patient denies chest pain, increased shortness of breath, chills, nausea or vomiting. OBJECTIVE VS: Please see below CONSTITUTIONAL: No acute distress, resting comfortably at bedside chair , AAO x 3 EYES: PERRLA, EOM intact HENT, MOUTH: Normocephalic, atraumatic, moist mucous membranes, NC in place NECK: SUPPLE, no JVD, no lymphadenopathy, no carotid bruit CV: Regular rate and rhythm, S1S2 normal, no murmurs/rubs/gallops RESPIRATORY: Clear to auscultation bilaterally, no rales/rhonchi/wheezes GI: BS positive in 4 quadrants, soft, nontender, nondistended, no rebound or guarding, no organomegaly : Deferred MUSCULOSKELETAL: ROM not tested, bandage over right hip where incision is, jose ears clean. No cyanosis, clubbing, swelling, joint deformity, extremity edema INTEGUMENTARY: Intact, no rashes, no lesions, no erythema NEUROLOGIC: Cranial Nerves II-XII are intact, no focal deficits PSYCHIATRIC: Mood and affect are normal LABORATORY DATA: Please see below MICROBIOLOGY: UA neg Blood cultures x 2 sets: pending IMAGING: CXR: 1. Minimal left basilar and right infrahilar atelectasis versus pneumonia. 2. Blunting of the left costophrenic angle which may be minimal pleural fluid or basilar pleural thickening. 3. Tortuous ectatic aorta. ASSESSMENT: 75-year-old male with past medical history of CAD s/p CABG, diabetes, hypertension, CKD, hyperlipidemia, hypothyroidism, history of GI bleed secondary to NSAIDs history of stomach MALT cancer, straight bladder cancer, history of skin cancer, osteoarthritis who on 05/15/2020 underwent total joint replacement of the right hip for progressively worsening right hip pain and stiffness failed to improve with conservative management. PLAN: SIRS, r/o cause of possible sepsis -Afebrile since 05/17/20 in afternoon, wbc wnl this AM, persistent mild tachycardia , remains on 2 L NC -CXR above, UA neg, blood cultures x2 sets pending. Incision site where surgery took place appears clean -Decreased fluids, monitor for s/s of fluid overload with hx of CHF/CAD s/p CABG -On Ceftriaxone prophylactically (Day2)- stop if blood cultures NG Ileus likely 2/2 to dehydration and worsened by narcotics- resolved -3 BM this AM -Advanced diet, c/w IVFs for one more day, encourage Po intake Shortness of breath likely atelectasis vs. CHF exacerbation -CXR above -No prior echocardiogram on file -Using Q2hr incentive spirometer and showing some O2 improvements -BNP 1279, troponin neg. Unknown if patient's BNP is chronically elevated. -C/w incentive spirometry Q2 hrs while awake. If should worsen, order echocardiogram -C/w cardiac meds Hypotension likely 2/2 to decreased PO intake, possibly SIRS, evolving sepsis- resolved -Hx of HTN -C/w treatment above Tachycardia poss 2/2 to SIRS/sepsis -Ortho not suspicious of site infection -C/w treatment above -Tele Urinary retention poss 2/2 to anesthesia -Holguin catheter placed 05/17/20 -Voiding trial on 05/19/20 -Good urine o/p Osteoarthritis s/p total right hip replacement POD #3. -Pain control switched to IV -PT/OT, wound care to incision site -Ortho primary CKD Stage III -Cr 1.76. -Baseline Cr likely 1.5-2 CAD s/p CABG -C/w PO cardiac meds currently. HLD -PO statin Hypothyroidism -Last TSH in 01/2020 was 23.8 -F/u new TSH -PO levothyroxine DVT px -xarelto DISPOSITION: Improvements today noted above. Will continue to monitor closely. VS, I&O, 24H, Fishbone Vital Signs/I&O Vital Signs Date Time Temp Pulse Resp B/P (MAP) Pulse Ox O2 Delivery O2 Flow Rate FiO2 05/18/20 12:00 98.8 100 20 155/70 (98) 97 Nasal Cannula 2.0 I&O- Last 24 Hours up to 6 AM 05/18/20 06:00 Intake Total 765 ml Output Total 750 ml Balance 15 ml Laboratory Data 24H LABS Laboratory Tests 2 05/17/20 15:44: Nucleated Red Blood Cells % (auto) 0.0, Lactic Acid Level 1.2, Troponin I 0.03, PT-[id number]-Type Natriuretic Peptide 1279H 05/17/20 15:58: Bedside Glucose (Misc Panel) 97 05/17/20 18:17: Bedside Glucose (Misc Panel) 106 05/18/20 00:15: Bedside Glucose (Misc Panel) 98 05/18/20 04:20: Nucleated Red Blood Cells % (auto) 0.0, Anion Gap 7L, Glomerular Filtration Rate 40.2L, Calcium Level 8.3L, Total Bilirubin 0.4, Aspartate Amino Transf (AST/SGOT) 41H, Alanine Aminotransferase (ALT/SGPT) 22, Alkaline Phosphatase 70, Total Protein 5.9L, Albumin 2.4L, Albumin/Globulin Ratio 0.7 05/18/20 12:31: Bedside Glucose (Misc Panel) 94 CBC/BMP Laboratory Tests 05/17/20 15:44 05/18/20 04:20 Microbiology Microbiology 05/17/20 Blood Culture, Received Pending 05/17/20 Blood Culture, Received Pending Current Medications Current Medications Medications (Trade) Dose Ordered Sig/Rhett Route PRN Reason Start Time Stop Time Status Last Admin Dose Admin Acetaminophen (Tylenol Arthritis Er) 650 mg Q8HP PRN PO PAIN 05/16/20 21:30 Cancel Acetaminophen (Tylenol Suppository) 650 mg Q4HP PRN [place] PAIN / FEVER 05/17/20 15:30 05/18/20 10:34 DC 05/18/20 00:19 Acetaminophen (Tylenol Suppository) 650 mg Q6HP PRN [place] PAIN / FEVER 05/17/20 14:15 05/17/20 14:31 DC Acetaminophen (Tylenol Tab) 650 mg Q4HP PRN PO TEMPERATURE, PAIN LEVEL 1-4 05/15/20 10:30 Cancel Acetaminophen (Tylenol Tab) 650 mg Q6HP PRN PO PAIN OR FEVER 05/18/20 10:30 Acetaminophen (Tylenol Tab) 1,000 mg Q8H PO 05/17/20 14:00 05/17/20 14:09 DC Amiodarone HCl (Pacerone, Cordarone) 200 mg MoWeFr@0900 PO 05/17/20 09:00 Amlodipine Besylate (Norvasc) 2.5 mg DAILY PO 05/17/20 09:00 05/18/20 09:42 Bisacodyl (Dulcolax Suppository) 10 mg BID [place] 05/17/20 09:00 05/18/20 09:42 Cefazolin Sodium/ Dextrose 2 gm/IV Miscellaneous Supplies 50 ml @ 75 mls/hr Q8H IV 05/15/20 17:00 05/16/20 01:39 DC 05/16/20 01:25 Ceftriaxone Sodium 1 gm/ Dextrose 50 ml @ 100 mls/hr Q24H IV 05/17/20 16:00 05/17/20 16:07 Dextrose (Dextrose 50%) 25 ml ASDIRECTED PRN IV SEE LABEL COMMENTS 05/15/20 12:45 Diphenhydramine HCl (Benadryl) 25 mg Q6H PRN PO ALLERGIES 05/16/20 21:30 05/18/20 10:34 DC 05/17/20 03:35 Docusate Sodium (Colace) 100 mg BID PO 05/18/20 09:00 05/18/20 12:56 Enoxaparin Sodium (Lovenox) 30 mg QHS SC 05/17/20 21:00 05/18/20 10:34 DC 05/17/20 21:09 Fentanyl Citrate (Sublimaze) 25 mcg Q5MP PRN IV PAIN LEVEL 5-10 05/15/20 10:30 05/15/20 11:30 DC Furosemide (Lasix) 10 mg MoWeFr@0900 PO 05/17/20 09:00 05/17/20 09:07 DC Glucagon (Glucagon) 1 mg ASDIRECTED PRN SC SEE LABEL COMMENTS 05/15/20 12:45 Glucose (Glucose) 16 GM ASDIRECTED PRN PO SEE LABEL COMMENTS 05/15/20 12:45 Home Med (Med Rec Complete!) ASDIRECTED XX 05/15/20 13:15 05/15/20 13:10 DC Insulin Human Lispro (HumaLOG INSULIN) SEE PROTOCOL TABLE AC SC 05/18/20 12:00 Insulin Human Lispro (HumaLOG INSULIN) SEE PROTOCOL TABLE AC SC 05/15/20 17:30 05/17/20 21:23 DC 05/17/20 13:29 Insulin Human Lispro (HumaLOG INSULIN) SEE PROTOCOL TABLE Q6H SC 05/18/20 00:00 05/18/20 10:34 DC Insulin Human Lispro (HumaLOG INSULIN) SEE PROTOCOL TABLE QHS DC 05/18/20 21:00 Insulin Human Lispro (HumaLOG INSULIN) [facility] 21:00 05/17/20 21:23 DC Ketorolac Tromethamine (ToRADol) 15 mg Q8H PRN IV PAIN LEVEL 6-10 05/17/20 14:30 05/18/20 10:34 DC 05/17/20 15:18 Lactated Ringer's 1,000 ml @ 70 mls/hr [id number] IV 05/15/20 10:30 05/16/20 01:35 DC 05/15/20 17:03 Lactated Ringer's 1,000 ml @ 80 mls/hr [id number] IV 05/15/20 10:30 05/15/20 11:30 DC Levothyroxine Sodium (Synthroid) 50 mcg QAM@0600 PO 05/17/20 06:00 05/18/20 06:32 Magnesium Hydroxide (Milk Of Magnesia) 30 ml DAILY PO 05/16/20 09:00 05/17/20 14:31 DC 05/17/20 09:08 Morphine Sulfate (Morphine Sulfate Inj) 2 mg Q2H PRN IV PAIN LEVEL 4-7 05/15/20 10:30 05/16/20 06:10 DC 05/15/20 14:25 Morphine Sulfate (Morphine Sulfate Inj) 3 mg Q2H PRN IV PAIN LEVEL 8-10 05/15/20 10:30 05/16/20 06:10 DC 05/16/20 01:25 Morphine Sulfate (Ms Contin) 15 mg BID PO 05/16/20 09:00 05/17/20 13:57 DC 05/16/20 20:49 Ondansetron HCl (ZOFRAN INJection) 4 mg Q4HP PRN IV NAUSEA OR VOMITING 05/15/20 10:30 05/15/20 11:30 DC Ondansetron HCl (ZOFRAN INJection) 4 mg Q6H PRN IV NAUSEA 05/15/20 10:30 05/17/20 14:31 DC 05/15/20 14:24 Oxycodone HCl (Roxicodone, Oxyir) 5 mg ASDIRECTED PRN PO PAIN LEVEL 1-4 05/15/20 10:30 05/15/20 11:30 DC Oxycodone/ Acetaminophen (Percocet 5mg/ 325mg Tablet) 1 tab Q6HP PRN PO SEVERE PAIN (PS 8-10) 05/18/20 10:30 Oxycodone/ Acetaminophen (Percocet 5mg/ 325mg Tablet) 2 tab Q4H PRN PO PAIN 7-10 05/15/20 10:30 05/17/20 13:57 DC 05/17/20 03:33 Polyethylene Glycol (Miralax) 1 pkt DAILY PO 05/18/20 09:00 05/18/20 12:56 Polyethylene Glycol (Miralax) 1 pkt DAILY PO 05/16/20 09:00 05/17/20 14:31 DC 05/17/20 09:08 Rivaroxaban (Xarelto) 10 mg DAILY@18 PO 05/18/20 18:00 Rivaroxaban (Xarelto) 10 mg DAILY@18 PO 05/16/20 18:00 05/17/20 16:17 DC 05/16/20 17:40 Rosuvastatin Calcium (Crestor) 20 mg DAILY PO 05/17/20 09:00 05/18/20 09:42 Sodium Chloride 1,000 ml @ 65 mls/hr [id number] IV 05/17/20 09:15 05/18/20 07:53 DC 05/18/20 00:26 Sodium Chloride 1,000 ml @ 75 mls/hr [id number] IV 05/18/20 08:30 05/18/20 09:43 Tramadol HCl (Ultram) 50 mg Q4HP PRN PO MODERATE PAIN (PS 5-7) 05/18/20 10:30 Tramadol HCl (Ultram) 50 mg Q6HP PRN PO SEVERE PAIN (PS 8-10) 05/17/20 14:00 05/17/20 14:31 DC Trazodone HCl (Desyrel) 100 mg QHS PO 05/17/20 21:00 05/17/20 21:09 Allergies Coded Allergies: NSAIDS (Non-Steroidal Anti-Inflamma (Verified Adverse Reaction, Severe, GI bleed, 05/08/20) naproxen (Verified Adverse Reaction, Severe, GI bleed, 05/08/20) Adina Bowen MD May 18, 2020 15:53
[2020-05-18 16:00] VITALS: BP 155/73
[2020-05-18] MEDS: cefTRIAXone SOD 1 GM in D5W MINI-BAG PLUS 50 ML IV SCH (16:50)
[2020-05-18] MEDS: RIVAROXABAN 10 MG TAB (XARELTO) PO SCH (18:19)
[2020-05-18 20:00] VITALS: BP 129/66
[2020-05-18] MEDS: traZODone 100 MG TAB PO SCH (21:42)
[2020-05-18] MEDS: PERCOCET 5MG/325MG TAB PO PRN (21:43)
[2020-05-18] MEDS ORDERED: ANALGESIC BALM CRM 120 GM TOP PRN (23:00)
[2020-05-19] VITALS: BP 141/62
[2020-05-19] MEDS: NS 1,000 ML IV SCH (01:57)
[2020-05-19 04:00] VITALS: BP 129/70
[2020-05-19 05:16] LABS: HEMATOCRIT 25.4 % (42.0-52.0); MEAN CORPUSCULAR HEMOGLOBIN 28.2 pg (27.0-33.0); MEAN CORPUSCULAR HGB CONC 31.5 g/dl (32.0-36.5); MEAN CORPUSCULAR VOLUME 89.4 fl (80.0-96.0); PLATELET COUNT, AUTOMATED 227 10^3/uL (150-450); RED BLOOD COUNT 2.84 10^6/uL (4.30-6.10); WHITE BLOOD COUNT 8.2 10^3/uL (4.0-10.0)
[2020-05-19 05:44] LABS: BLOOD UREA NITROGEN 27 MG/DL (7-18); CALCIUM LEVEL 8.2 MG/DL (8.8-10.2); CARBON DIOXIDE LEVEL 25 MEQ/L (21-32); CHLORIDE LEVEL 111 MEQ/L (98-107); CREATININE FOR GFR 1.23 MG/DL (0.70-1.30); GLOMERULAR FILTRATION RATE > 60.0 (>42); GLUCOSE, FASTING 112 MG/DL (70-100); POTASSIUM SERUM 4.4 MEQ/L (3.5-5.1); SODIUM LEVEL 141 MEQ/L (136-145)
[2020-05-19] MEDS: LEVOTHYROXINE 50MCG TABLET (0.05MG) PO SCH (06:03)
[2020-05-19 08:00] VITALS: BP 163/79
--- NOTE | 2020-05-19 09:16 | REPVR ---
PROCEDURE INFORMATION: Exam: CT Right Lower Extremity Without Contrast, Hip Exam date and time: 05/19/2020 9:05 AM Age: 75 years old Clinical indication: Other: R/O right hip bleed/hematoma, S/P total hip replacement; Prior surgery; Surgery date: 3-7 days post-operative TECHNIQUE: Imaging protocol: CT of the Right lower extremity without contrast was performed. Exam focused on the hip. Radiation optimization: All CT scans at this facility use at least one of these dose optimization techniques: automated exposure control; mA and/or kV adjustment per patient size (includes targeted exams where dose is matched to clinical indication); or iterative reconstruction. COMPARISON: CT ABD PELVIS W/O FOL BY WIT 01/06/2019 10:14 AM FINDINGS: Bones/joints: There has been interval right hip arthroplasty. This is associated with streak artifact, somewhat degrading evaluation. The prosthesis is in grossly satisfactory position. There are small curvilinear fracture fragments adjacent to the superolateral aspect of the acetabulum and the greater trochanter. No fracture is identified elsewhere. The partially visualized sacroiliac joint is patent and with very mild periarticular osteophyte formation. Lower lumbar spondylosis is noted. Soft tissues: There are again small fat containing inguinal hernias. Moderate soft tissue and muscular edema is present laterally with small areas of confluent fluid and a few tiny foci of gas, and some skin digna are in situ. There is no high density collection to indicate hematoma. Vasculature: Atherosclerotic vascular calcifications are again present. IMPRESSION: Satisfactory appearance of a recent total hip arthroplasty. Radiographs suggested to establish baseline appearance. Electronically signed by: Aris Sanchez On 05/19/2020 09:15:35 AM
[2020-05-19] MEDS: MIRALAX *UNIT DOSE* 17GM PACKET PO SCH (09:41)
[2020-05-19] MEDS: DOCUSATE SODIUM 100 MG CAP PO SCH ×2 (09:42→21:06)
[2020-05-19] MEDS: ROSUVASTATIN 10 MG TAB (CRESTOR) PO SCH (09:42)
[2020-05-19] MEDS: HumaLOG INSULIN (NovoLOG) PER UNIT SC SCH ×4 (09:42→21:00)
[2020-05-19] MEDS: BISACODYL 10 MG SUPP PR SCH ×2 (09:43→21:06)
[2020-05-19 12:00] VITALS: BP 162/77
--- NOTE | 2020-05-19 13:35 | IPNPDOC ---
Date Seen The patient was seen on 05/19/20. Progress Note SUBJECTIVE: Moving bowels regularly. H/H dropped again today, not suspecting dilutional cause as on minimal fluids. CT right hip neg for hematoma. Occult blood pending as patient is on AC. D/evaristo ceftriaxone, neg BCx x 2 sets and has remained afebrile. OOBTC with all meals, TID. Activity as per ortho. Patient denies chest pain, increased shortness of breath, chills, nausea or vomiting. OBJECTIVE VS: Please see below CONSTITUTIONAL: No acute distress, resting comfortably at bedside chair , AAO x 3 EYES: PERRLA, EOM intact HENT, MOUTH: Normocephalic, atraumatic, moist mucous membranes, NC in place NECK: SUPPLE, no JVD, no lymphadenopathy, no carotid bruit CV: Regular rate and rhythm, S1S2 normal, no murmurs/rubs/gallops RESPIRATORY: Clear to auscultation bilaterally, no rales/rhonchi/wheezes GI: BS positive in 4 quadrants, soft, nontender, nondistended, no rebound or guarding, no organomegaly : Deferred MUSCULOSKELETAL: ROM not tested, bandage over right hip where incision is, appears clean. No cyanosis, clubbing, swelling, joint deformity, extremity edema INTEGUMENTARY: Intact, no rashes, no lesions, no erythema NEUROLOGIC: Cranial Nerves II-XII are intact, no focal deficits PSYCHIATRIC: Mood and affect are normal LABORATORY DATA: Please see below MICROBIOLOGY: UA neg Blood cultures x 2 sets: pending IMAGING: CT right hip 05/19/20: There is no high density collection to indicate hematoma. CXR: 1. Minimal left basilar and right infrahilar atelectasis versus pneumonia. 2. Blunting of the left costophrenic angle which may be minimal pleural fluid or basilar pleural thickening. 3. Tortuous ectatic aorta. ASSESSMENT: 75-year-old male with past medical history of CAD s/p CABG, diabetes, hypertension, CKD, hyperlipidemia, hypothyroidism, history of GI bleed secondary to NSAIDs history of stomach MALT cancer, straight bladder cancer, history of skin cancer, osteoarthritis who on 05/15/2020 underwent total joint replacement of the right hip for progressively worsening right hip pain and stiffness failed to improve with conservative management. PLAN: Shortness of breath likely atelectasis vs. CHF exacerbation -CXR above -No prior echocardiogram on file -Using Q2hr incentive spirometer and showing some O2 improvements -BNP 1279, troponin neg. Unknown if patient's BNP is chronically elevated. -C/w incentive spirometry Q2 hrs while awake. If should worsen, order echocardiogram -C/w cardiac meds, adding daily lasix -Monitor I&O's closely, daily wt Tachycardia poss 2/2 intermittent pain? -Ortho not suspicious of site infection -C/w treatment above -Tele, pain control Urinary retention poss 2/2 to anesthesia vs. underlying BPH? -Holguin catheter placed 05/17/20 -Voiding trial on 05/19/20, monitor closely -Hx of having disrupted urination Osteoarthritis s/p total right hip replacement POD #4. -Pain control PO, at time increased -PT/OT, wound care to incision site -Ortho primary HTN -BP slightly elevated but was getting gentle IVFs which are now stopped -C/w home meds plus lasix started today CKD Stage III -Cr now 1.23, much improved -Baseline Cr likely 1.5-2 -Daily labs CAD s/p CABG -C/w PO cardiac meds currently, added lasix HLD -PO statin Hypothyroidism -Last TSH in 01/2020 was 23.8 -TSH wnl this admission -PO levothyroxine SIRS- no cause identified and now resolved. -Afebrile, wbc wnl, mild tachycardia remains only -CXR above, UA neg, blood cultures x2 sets NG. -CT hip above, Incision site where surgery took place appears clean -D/evaristo IVFs and abx -Received 3 days of IV Ceftriaxone prophylactically Ileus likely 2/2 to dehydration and worsened by narcotics- resolved Hypotension likely 2/2 to decreased PO intake, possibly SIRS, evolving sepsis- resolved DVT px -xarelto DISPOSITION: C/w PT/OT, ortho primary. VS, I&O, 24H, [facility] Vital Signs/I&O Vital Signs Date Time Temp Pulse Resp B/P (MAP) Pulse Ox O2 Delivery O2 Flow Rate FiO2 05/19/20 12:00 98.0 90 20 162/77 (105) 94 Nasal Cannula 1.0 I&O- Last 24 Hours up to 6 AM 05/19/20 05:59 Intake Total 1430 ml Output Total 2075 ml Balance -645 ml Laboratory Data 24H LABS Laboratory Tests 2 05/18/20 16:09: Thyroid Stimulating Hormone (TSH) 1.690 05/18/20 17:27: Bedside Glucose (Misc Panel) 121H 05/18/20 21:31: Bedside Glucose (Misc Panel) 98 05/19/20 04:49: Nucleated Red Blood Cells % (auto) 0.0, Anion Gap 5L, Glomerular Filtration Rate > 60.0, Calcium Level 8.2L 05/19/20 11:46: Bedside Glucose (Misc Panel) 136H CBC/BMP Laboratory Tests 05/19/20 04:49 Microbiology Microbiology 05/17/20 Blood Culture - Preliminary, Resulted No growth after 24 hours . All specim... 05/17/20 Blood Culture - Preliminary, Resulted No growth after 24 hours . All specim... Current Medications Current Medications Medications (Trade) Dose Ordered Sig/Rhett Route PRN Reason Start Time Stop Time Status Last Admin Dose Admin Acetaminophen (Tylenol Arthritis Er) 650 mg Q8HP PRN PO PAIN 05/16/20 21:30 Cancel Acetaminophen (Tylenol Suppository) 650 mg Q4HP PRN [place] PAIN / FEVER 05/17/20 15:30 05/18/20 10:34 DC 05/18/20 00:19 Acetaminophen (Tylenol Suppository) 650 mg Q6HP PRN [place] PAIN / FEVER 05/17/20 14:15 05/17/20 14:31 DC Acetaminophen (Tylenol Tab) 650 mg Q4HP PRN PO TEMPERATURE, PAIN LEVEL 1-4 05/15/20 10:30 Cancel Acetaminophen (Tylenol Tab) 650 mg Q6HP PRN PO PAIN OR FEVER 05/18/20 10:30 Acetaminophen (Tylenol Tab) 1,000 mg Q8H PO 05/17/20 14:00 05/17/20 14:09 DC Amiodarone HCl (Pacerone, Cordarone) 200 mg MoWeFr@0900 PO 05/17/20 09:00 Amlodipine Besylate (Norvasc) 2.5 mg DAILY PO 05/17/20 09:00 05/19/20 09:43 Bisacodyl (Dulcolax Suppository) 10 mg BID [place] 05/17/20 09:00 05/19/20 09:43 Cefazolin Sodium/ Dextrose 2 gm/IV Miscellaneous Supplies 50 ml @ 75 mls/hr Q8H IV 05/15/20 17:00 05/16/20 01:39 DC 05/16/20 01:25 Ceftriaxone Sodium 1 gm/ Dextrose 50 ml @ 100 mls/hr Q24H IV 05/17/20 16:00 05/18/20 16:50 Dextrose (Dextrose 50%) 25 ml ASDIRECTED PRN IV SEE LABEL COMMENTS 05/15/20 12:45 Diphenhydramine HCl (Benadryl) 25 mg Q6H PRN PO ALLERGIES 05/16/20 21:30 05/18/20 10:34 DC 05/17/20 03:35 Docusate Sodium (Colace) 100 mg BID PO 05/18/20 09:00 05/19/20 09:42 Enoxaparin Sodium (Lovenox) 30 mg QHS SC 05/17/20 21:00 05/18/20 10:34 DC 05/17/20 21:09 Fentanyl Citrate (Sublimaze) 25 mcg Q5MP PRN IV PAIN LEVEL 5-10 05/15/20 10:30 05/15/20 11:30 DC Furosemide (Lasix) 10 mg MoWeFr@0900 PO 05/17/20 09:00 05/17/20 09:07 DC Glucagon (Glucagon) 1 mg ASDIRECTED PRN SC SEE LABEL COMMENTS 05/15/20 12:45 Glucose (Glucose) 16 GM ASDIRECTED PRN PO SEE LABEL COMMENTS 05/15/20 12:45 Home Med (Med Rec Complete!) ASDIRECTED XX 05/15/20 13:15 05/15/20 13:10 DC Insulin Human Lispro (HumaLOG INSULIN) SEE PROTOCOL TABLE AC SC 05/18/20 12:00 05/19/20 12:27 Insulin Human Lispro (HumaLOG INSULIN) SEE PROTOCOL TABLE AC SC 05/15/20 17:30 05/17/20 21:23 DC 05/17/20 13:29 Insulin Human Lispro (HumaLOG INSULIN) SEE PROTOCOL TABLE Q6H SC 05/18/20 00:00 05/18/20 10:34 DC Insulin Human Lispro (HumaLOG INSULIN) SEE PROTOCOL TABLE QHS SC 05/18/20 21:00 Insulin Human Lispro (HumaLOG INSULIN) SEE PROTOCOL TABLE QHS SC 05/15/20 21:00 10/9/20 21:23 DC Ketorolac Tromethamine (ToRADol) 15 mg Q8H PRN IV PAIN LEVEL 6-10 05/17/20 14:30 05/18/20 10:34 DC 05/17/20 15:18 Lactated Ringer's 1,000 ml @ 70 mls/hr [id number] IV 05/15/20 10:30 05/16/20 01:35 DC 05/15/20 17:03 Lactated Ringer's 1,000 ml @ 80 mls/hr [id number] IV 05/15/20 10:30 05/15/20 11:30 DC Levothyroxine Sodium (Synthroid) 50 mcg QAM@0600 PO 05/17/20 06:00 05/19/20 06:03 Magnesium Hydroxide (Milk Of Magnesia) 30 ml DAILY PO 05/16/20 09:00 05/17/20 14:31 DC 05/17/20 09:08 Menthol/Methyl Salicylate (Bengay Cream) APPLY TO AFFECTED AREA(S) QIDP PRN TOP PAIN 05/18/20 23:00 Morphine Sulfate (Morphine Sulfate Inj) 2 mg Q2H PRN IV PAIN LEVEL 4-7 05/15/20 10:30 05/16/20 06:10 DC 05/15/20 14:25 Morphine Sulfate (Morphine Sulfate Inj) 3 mg Q2H PRN IV PAIN LEVEL 8-10 05/15/20 10:30 05/16/20 06:10 DC 05/16/20 01:25 Morphine Sulfate (Ms Contin) 15 mg BID PO 05/16/20 09:00 05/17/20 13:57 DC 05/16/20 20:49 Ondansetron HCl (ZOFRAN INJection) 4 mg Q4HP PRN IV NAUSEA OR VOMITING 05/15/20 10:30 05/15/20 11:30 DC Ondansetron HCl (ZOFRAN INJection) 4 mg Q6H PRN IV NAUSEA 05/15/20 10:30 05/17/20 14:31 DC 05/15/20 14:24 Oxycodone HCl (Roxicodone, Oxyir) 5 mg ASDIRECTED PRN PO PAIN LEVEL 1-4 05/15/20 10:30 05/15/20 11:30 DC Oxycodone/ Acetaminophen (Percocet 5mg/ 325mg Tablet) 1 tab Q6HP PRN PO SEVERE PAIN (PS 8-10) 05/18/20 10:30 05/18/20 21:43 Oxycodone/ Acetaminophen (Percocet 5mg/ 325mg Tablet) 2 tab Q4H PRN PO PAIN 7-10 05/15/20 10:30 05/17/20 13:57 DC 05/17/20 03:33 Polyethylene Glycol (Miralax) 1 pkt DAILY PO 05/18/20 09:00 05/19/20 09:41 Polyethylene Glycol (Miralax) 1 pkt DAILY PO 05/16/20 09:00 05/17/20 14:31 DC 05/17/20 09:08 Rivaroxaban (Xarelto) 10 mg DAILY@18 PO 05/18/20 18:00 05/18/20 18:19 Rivaroxaban (Xarelto) 10 mg DAILY@18 PO 05/16/20 18:00 05/17/20 16:17 DC 05/16/20 17:40 Rosuvastatin Calcium (Crestor) 20 mg DAILY PO 05/17/20 09:00 05/19/20 09:42 Sodium Chloride 1,000 ml @ 65 mls/hr [id number] IV 05/17/20 09:15 05/18/20 07:53 DC 05/18/20 00:26 Sodium Chloride 1,000 ml @ 75 mls/hr [id number] IV 05/18/20 08:30 05/19/20 08:10 DC 05/19/20 01:57 Tramadol HCl (Ultram) 50 mg Q4HP PRN PO MODERATE PAIN (PS 5-7) 05/18/20 10:30 Tramadol HCl (Ultram) 50 mg Q6HP PRN PO SEVERE PAIN (PS 8-10) 05/17/20 14:00 05/17/20 14:31 DC Trazodone HCl (Desyrel) 100 mg QHS PO 05/17/20 21:00 05/18/20 21:42 Allergies Coded Allergies: NSAIDS (Non-Steroidal Anti-Inflamma (Verified Adverse Reaction, Severe, GI bleed, 05/08/20) naproxen (Verified Adverse Reaction, Severe, GI bleed, 05/08/20) Adina Bowen MD May 19, 2020 13:35
[2020-05-19] MEDS: FUROSEMIDE 20 MG TAB PO SCH (14:45)
[2020-05-19] MEDS: PERCOCET 5MG/325MG TAB PO PRN (14:45)
[2020-05-19 16:00] VITALS: BP 109/64
[2020-05-19] MEDS: RIVAROXABAN 10 MG TAB (XARELTO) PO SCH (18:22)
[2020-05-19 20:00] VITALS: BP 105/77
[2020-05-19] MEDS: ALBUTEROL SULFATE 2.5 MG/0.5 ML INH NEB SOLN NEB PRN (21:06)
[2020-05-19] MEDS: traZODone 100 MG TAB PO SCH (21:06)
[2020-05-20] VITALS (7 sets, daily range): BP systolic 121–156; BP diastolic 66–85
[2020-05-20] MEDS: ALBUTEROL SULFATE 2.5 MG/0.5 ML INH NEB SOLN NEB PRN (04:07)
[2020-05-20 05:57] LABS: HEMATOCRIT 26.1 % (42.0-52.0); HEMOGLOBIN 8.3 g/dl (13.5-17.5); MEAN CORPUSCULAR HEMOGLOBIN 28.1 pg (27.0-33.0); MEAN CORPUSCULAR HGB CONC 31.8 g/dl (32.0-36.5); MEAN CORPUSCULAR VOLUME 88.5 fl (80.0-96.0); PLATELET COUNT, AUTOMATED 248 10^3/uL (150-450); RED BLOOD COUNT 2.95 10^6/uL (4.30-6.10); WHITE BLOOD COUNT 7.7 10^3/uL (4.0-10.0)
[2020-05-20] MEDS: LEVOTHYROXINE 50MCG TABLET (0.05MG) PO SCH (06:02)
[2020-05-20 06:15] LABS: CREATININE FOR GFR 1.31 MG/DL (0.70-1.30); GLOMERULAR FILTRATION RATE 56.5 (>42)
[2020-05-20] MEDS: BISACODYL 10 MG SUPP PR SCH ×2 (09:00→20:40)
[2020-05-20] MEDS: MIRALAX *UNIT DOSE* 17GM PACKET PO SCH (09:04)
[2020-05-20] MEDS: HumaLOG INSULIN (NovoLOG) PER UNIT SC SCH ×4 (09:05→20:40)
[2020-05-20] MEDS: ROSUVASTATIN 10 MG TAB (CRESTOR) PO SCH (09:06)
[2020-05-20] MEDS: DOCUSATE SODIUM 100 MG CAP PO SCH ×2 (09:07→20:40)
[2020-05-20] MEDS: AMIODARONE 200 MG TAB (PACERONE) PO SCH (09:07)
[2020-05-20] MEDS: FUROSEMIDE 20 MG TAB PO SCH (09:07)
--- NOTE | 2020-05-20 10:57 | REP ---
RIGHT HIP PORTABLE EXAM: TWO VIEWS HISTORY: Postop. FINDINGS: AP and cross-table lateral views of the right hip demonstrate right hip arthroplasty. Components in good position. There is vascular calcification. Lateral skin digna are noted. IMPRESSION: Right hip arthroplasty in place. RUSSELL
[2020-05-20] MEDS: ACETAMINOPHEN TAB 650MG DOSE (2X325MG) PO PRN (13:33)
--- NOTE | 2020-05-20 15:05 | IPNPDOC ---
Date Seen The patient was seen on 05/20/20. Progress Note SUBJECTIVE: Moving bowels regularly. H/H slightly improved with stopping IVFs. Remains on 2 L NC overnight but off during the day. OOBTC with all meals, TID. Activity as per ortho. Patient denies chest pain, increased shortness of breath, chills, nausea or vomiting. OBJECTIVE VS: Please see below CONSTITUTIONAL: No acute distress, resting comfortably at bedside chair , AAO x 3 EYES: PERRLA, EOM intact HENT, MOUTH: Normocephalic, atraumatic, moist mucous membranes, NC in place NECK: SUPPLE, no JVD, no lymphadenopathy, no carotid bruit CV: Regular rate and rhythm, S1S2 normal, no murmurs/rubs/gallops RESPIRATORY: Clear to auscultation bilaterally, no rales/rhonchi/wheezes GI: BS positive in 4 quadrants, soft, nontender, nondistended, no rebound or guarding, no organomegaly : Deferred MUSCULOSKELETAL: ROM decreased RLE, bandage over right hip where incision is, appears clean. No cyanosis, clubbing, swelling, joint deformity, extremity edema INTEGUMENTARY: Intact, no rashes, no lesions, no erythema NEUROLOGIC: Cranial Nerves II-XII are intact, no focal deficits PSYCHIATRIC: Mood and affect are normal LABORATORY DATA: Please see below MICROBIOLOGY: UA neg Blood cultures x 2 sets: NG at 48 hrs IMAGING: CT right hip 05/19/20: There is no high density collection to indicate hematoma. CXR: 1. Minimal left basilar and right infrahilar atelectasis versus pneumonia. 2. Blunting of the left costophrenic angle which may be minimal pleural fluid or basilar pleural thickening. 3. Tortuous ectatic aorta. ASSESSMENT: 75-year-old male with past medical history of CAD s/p CABG, diabetes, hypertension, CKD, hyperlipidemia, hypothyroidism, history of GI bleed secondary to NSAIDs history of stomach MALT cancer, straight bladder cancer, history of skin cancer, osteoarthritis who on 05/15/2020 underwent total joint replacement of the right hip for progressively worsening right hip pain and stiffness failed to improve with conservative management. PLAN: Shortness of breath likely atelectasis vs. CHF -CXR above -No prior echocardiogram on file -Using Q2hr incentive spirometer and showing some O2 improvements -BNP 1279, troponin neg. Unknown if patient's BNP is chronically elevated. -C/w incentive spirometry Q2 hrs while awake. If should worsen, order echocardiogram -C/w cardiac meds, daily lasix -Monitor I&O's closely, daily wt Tachycardia poss 2/2 intermittent pain? -Ortho not suspicious of site infection -C/w treatment above -Tele, pain control Osteoarthritis s/p total right hip replacement POD #5. -Pain control PO, at time increased -PT/OT, wound care to incision site -Ortho primary HTN -Stable -C/w home meds plus lasix daily CKD Stage III -Cr 1.3 -Baseline Cr likely 1.5-2 -Daily labs CAD s/p CABG -C/w PO cardiac meds, lasix HLD -PO statin Hypothyroidism -Last TSH in 01/2020 was 23.8 -TSH wnl this admission -PO levothyroxine DVT px -xarelto RESOLVED issues this hospital stay: SIRS- no cause identified- resolved -Afebrile, wbc wnl, mild tachycardia remains only -CXR above, UA neg, blood cultures x2 sets NG. -CT hip above, Incision site where surgery took place appears clean -D/evaristo IVFs and abx -Received 3 days of IV Ceftriaxone prophylactically Ileus likely 2/2 to dehydration and worsened by narcotics- resolved Hypotension likely 2/2 to decreased PO intake, possibly SIRS-resolved Urinary retention poss 2/2 to anesthesia vs. underlying BPH- resolved -Holguin catheter placed 05/17/20, d/evaristo on 05/19/20 -Hx of having disrupted urination DISPOSITION: Transferred back to med surg status, d/evaristo tele. C/w PT/OT, ORTHO primary. VS, I&O, 24H, Praveena Vital Signs/I&O Vital Signs Date Time Temp Pulse Resp B/P (MAP) Pulse Ox O2 Delivery O2 Flow Rate FiO2 05/20/20 09:06 92 156/85 05/20/20 08:00 97.7 18 98 Room Air 05/20/20 04:00 2.0 I&O- Last 24 Hours up to 6 AM0 05/20/20 06:00 Intake Total 1245 ml Output Total 900 ml Balance 345 ml Laboratory Data 24H LABS Laboratory Tests 2 05/19/20 16:56: Bedside Glucose (Misc Panel) 145H 05/19/20 20:17: Bedside Glucose (Misc Panel) 119H 05/20/20 05:38: Nucleated Red Blood Cells % (auto) 0.0, Anion Gap 6L, Glomerular Filtration Rate 56.5, Calcium Level 8.0L 05/20/20 08:48: Bedside Glucose (Misc Panel) 169H 05/20/20 11:53: Bedside Glucose (Misc Panel) 91 CBC/BMP Laboratory Tests 05/20/20 05:38 Microbiology Microbiology 05/19/20 Stool Occult Blood (RAKEL) - Final, Complete 05/17/20 Blood Culture - Preliminary, Resulted No Growth after 48 hours. All Specime... 05/17/20 Blood Culture - Preliminary, Resulted No Growth after 48 hours. All Specime... Current Medications Current Medications Medications (Trade) Dose Ordered Sig/Rhett Route PRN Reason Start Time Stop Time Status Last Admin Dose Admin Acetaminophen (Tylenol Arthritis Er) 650 mg Q8HP PRN PO PAIN 05/16/20 21:30 Cancel Acetaminophen (Tylenol Suppository) 650 mg Q4HP PRN AR PAIN / FEVER 05/17/20 15:30 05/18/20 10:34 DC 05/18/20 00:19 Acetaminophen (Tylenol Suppository) 650 mg Q6HP PRN AR PAIN / FEVER 05/17/20 14:15 05/17/20 14:31 DC Acetaminophen (Tylenol Tab) 650 mg Q4HP PRN PO TEMPERATURE, PAIN LEVEL 1-4 05/15/20 10:30 Cancel Acetaminophen (Tylenol Tab) 650 mg Q6HP PRN PO PAIN OR FEVER 05/18/20 10:30 05/20/20 13:33 Acetaminophen (Tylenol Tab) 1,000 mg Q8H PO 05/17/20 14:00 05/17/20 14:09 DC Albuterol Sulfate (Proventil Neb) 2.5 mg Q2HP PRN NEB SOB/WHEEZING 05/19/20 16:45 05/20/20 04:07 Amiodarone HCl (Pacerone, Cordarone) 200 mg MoWeFr@0900 PO 05/17/20 09:00 05/20/20 09:07 Amlodipine Besylate (Norvasc) 2.5 mg DAILY PO 05/17/20 09:00 05/20/20 09:06 Bisacodyl (Dulcolax Suppository) 10 mg BID AR 05/17/20 09:00 05/19/20 21:06 Cefazolin Sodium/ Dextrose 2 gm/IV Miscellaneous Supplies 50 ml @ 75 mls/hr Q8H IV 05/15/20 17:00 05/16/20 01:39 DC 05/16/20 01:25 Ceftriaxone Sodium 1 gm/ Dextrose 50 ml @ 100 mls/hr Q24H IV 05/17/20 16:00 05/19/20 13:21 DC 05/18/20 16:50 Dextrose (Dextrose 50%) 25 ml ASDIRECTED PRN IV SEE LABEL COMMENTS 05/15/20 12:45 Diphenhydramine HCl (Benadryl) 25 mg Q6H PRN PO ALLERGIES 05/16/20 21:30 05/18/20 10:34 DC 05/17/20 03:35 Docusate Sodium (Colace) 100 mg BID PO 05/18/20 09:00 05/20/20 09:07 Enoxaparin Sodium (Lovenox) 30 mg QHS SC 05/17/20 21:00 05/18/20 10:34 DC 05/17/20 21:09 Fentanyl Citrate (Sublimaze) 25 mcg Q5MP PRN IV PAIN LEVEL 5-10 05/15/20 10:30 05/15/20 11:30 DC Furosemide (Lasix) 10 mg MoWeFr@0900 PO 05/17/20 09:00 05/17/20 09:07 DC Furosemide (Lasix) 30 mg DAILY PO 05/19/20 09:00 05/20/20 09:07 Glucagon (Glucagon) 1 mg ASDIRECTED PRN SC SEE LABEL COMMENTS 05/15/20 12:45 Glucose (Glucose) 16 GM ASDIRECTED PRN PO SEE LABEL COMMENTS 05/15/20 12:45 Home Med (Med Rec Complete!) ASDIRECTED XX 05/15/20 13:15 05/15/20 13:10 DC Insulin Human Lispro (HumaLOG INSULIN) SEE PROTOCOL TABLE AC SC 05/18/20 12:00 05/20/20 09:05 Insulin Human Lispro (HumaLOG INSULIN) SEE PROTOCOL TABLE AC SC 05/15/20 17:30 05/17/20 21:23 DC 05/17/20 13:29 Insulin Human Lispro (HumaLOG INSULIN) SEE PROTOCOL TABLE Q6H GA 05/18/20 00:00 05/18/20 10:34 DC Insulin Human Lispro (HumaLOG INSULIN) SEE PROTOCOL TABLE QHS GA 05/18/20 21:00 Insulin Human Lispro (HumaLOG INSULIN) [facility] 05/15/20 21:00 05/17/20 21:23 DC Ketorolac Tromethamine (ToRADol) 15 mg Q8H PRN IV PAIN LEVEL 6-10 05/17/20 14:30 05/18/20 10:34 DC 05/17/20 15:18 Lactated Ringer's 1,000 ml @ 70 mls/hr [id number] IV 05/15/20 10:30 05/16/20 01:35 DC 05/15/20 17:03 Lactated Ringer's 1,000 ml @ 80 mls/hr [id number] IV 05/15/20 10:30 05/15/20 11:30 DC Levothyroxine Sodium (Synthroid) 50 mcg QAM@0600 PO 05/17/20 06:00 05/20/20 06:02 Magnesium Hydroxide (Milk Of Magnesia) 30 ml DAILY PO 05/16/20 09:00 05/17/20 14:31 DC 05/17/20 09:08 Menthol/Methyl Salicylate (Bengay Cream) APPLY TO AFFECTED AREA(S) QIDP PRN TOP PAIN 05/18/20 23:00 Morphine Sulfate (Morphine Sulfate Inj) 2 mg Q2H PRN IV PAIN LEVEL 4-7 05/15/20 10:30 05/16/20 06:10 DC 05/15/20 14:25 Morphine Sulfate (Morphine Sulfate Inj) 3 mg Q2H PRN IV PAIN LEVEL 8-10 05/15/20 10:30 05/16/20 06:10 DC 05/16/20 01:25 Morphine Sulfate (Ms Contin) 15 mg BID PO 05/16/20 09:00 05/17/20 13:57 DC 05/16/20 20:49 Ondansetron HCl (ZOFRAN INJection) 4 mg Q4HP PRN IV NAUSEA OR VOMITING 05/15/20 10:30 05/15/20 11:30 DC Ondansetron HCl (ZOFRAN INJection) 4 mg Q6H PRN IV NAUSEA 05/15/20 10:30 05/17/20 14:31 DC 05/15/20 14:24 Oxycodone HCl (Roxicodone, Oxyir) 5 mg ASDIRECTED PRN PO PAIN LEVEL 1-4 05/15/20 10:30 05/15/20 11:30 DC Oxycodone/ Acetaminophen (Percocet 5mg/ 325mg Tablet) 1 tab Q6HP PRN PO SEVERE PAIN (PS 8-10) 05/18/20 10:30 05/19/20 14:45 Oxycodone/ Acetaminophen (Percocet 5mg/ 325mg Tablet) 2 tab Q4H PRN PO PAIN 7-10 05/15/20 10:30 05/17/20 13:57 DC 05/17/20 03:33 Polyethylene Glycol (Miralax) 1 pkt DAILY PO 05/18/20 09:00 05/20/20 09:04 Polyethylene Glycol (Miralax) 1 pkt DAILY PO 05/16/20 09:00 05/17/20 14:31 DC 05/17/20 09:08 Rivaroxaban (Xarelto) 10 mg DAILY@18 PO 05/18/20 18:00 05/19/20 18:22 Rivaroxaban (Xarelto) 10 mg DAILY@18 PO 05/16/20 18:00 05/17/20 16:17 DC 05/16/20 17:40 Rosuvastatin Calcium (Crestor) 20 mg DAILY PO 05/17/20 09:00 05/20/20 09:06 Sodium Chloride 1,000 ml @ 65 mls/hr [id number] IV 05/17/20 09:15 05/18/20 07:53 DC 05/18/20 00:26 Sodium Chloride 1,000 ml @ 75 mls/hr [id number] IV 05/18/20 08:30 05/19/20 08:10 DC 05/19/20 01:57 Tramadol HCl (Ultram) 50 mg Q4HP PRN PO MODERATE PAIN (PS 5-7) 05/18/20 10:30 Tramadol HCl (Ultram) 50 mg Q6HP PRN PO SEVERE PAIN (PS 8-10) 05/17/20 14:00 05/17/20 14:31 DC Trazodone HCl (Desyrel) 100 mg QHS PO 05/17/20 21:00 05/19/20 21:06 Allergies Coded Allergies: NSAIDS (Non-Steroidal Anti-Inflamma (Verified Adverse Reaction, Severe, GI bleed, 05/08/20) naproxen (Verified Adverse Reaction, Severe, GI bleed, 05/08/20) Adina Bowen MD May 20, 2020 15:05
[2020-05-20] MEDS: RIVAROXABAN 10 MG TAB (XARELTO) PO SCH (18:13)
[2020-05-20] MEDS: traZODone 100 MG TAB PO SCH (20:40)
[2020-05-21] MEDS ORDERED: diphenhydrAMINE 25MG CAP PO ONE (01:30)
[2020-05-21] MEDS: ACETAMINOPHEN TAB 650MG DOSE (2X325MG) PO PRN (01:54)
[2020-05-21] MEDS: LEVOTHYROXINE 50MCG TABLET (0.05MG) PO SCH (05:36)
[2020-05-21 05:52] LABS: HEMATOCRIT 25.9 % (42.0-52.0); HEMOGLOBIN 8.3 g/dl (13.5-17.5); MEAN CORPUSCULAR HEMOGLOBIN 28.1 pg (27.0-33.0); MEAN CORPUSCULAR VOLUME 87.8 fl (80.0-96.0); PLATELET COUNT, AUTOMATED 278 10^3/uL (150-450); RED BLOOD COUNT 2.95 10^6/uL (4.30-6.10); WHITE BLOOD COUNT 6.9 10^3/uL (4.0-10.0)
[2020-05-21] MEDS ORDERED: XARE10TA PO (05:59)
[2020-05-21] MEDS ORDERED: PERC5TAB12 PO (05:59)
[2020-05-21 06:00] VITALS: BP 148/80
[2020-05-21 06:28] LABS: CALCIUM LEVEL 8.6 MG/DL (8.8-10.2); CREATININE FOR GFR 1.32 MG/DL (0.70-1.30); POTASSIUM SERUM 3.8 MEQ/L (3.5-5.1)
[2020-05-21 08:40] VITALS: BP 148/80
[2020-05-21] MEDS: DOCUSATE SODIUM 100 MG CAP PO SCH (08:40)
[2020-05-21] MEDS: FUROSEMIDE 20 MG TAB PO SCH (08:40)
[2020-05-21] MEDS: ROSUVASTATIN 10 MG TAB (CRESTOR) PO SCH (08:40)
[2020-05-21] MEDS: BISACODYL 10 MG SUPP PR SCH ×2 (08:41→08:46)
[2020-05-21] MEDS: HumaLOG INSULIN (NovoLOG) PER UNIT SC SCH (08:41)
[2020-05-21] MEDS: MIRALAX *UNIT DOSE* 17GM PACKET PO SCH (08:42)
--- NOTE | 2020-05-21 12:23 | IPNPDOC ---
Text Note Date of Service The patient was seen on 05/21/20. NOTE SUBJECTIVE: -No acute events overnight. Without chest pain, increased shortness of breath, chills, nausea or vomiting. OBJECTIVE VS: Please see below CONSTITUTIONAL: No acute distress, resting comfortably at bedside chair , AAO x 3 EYES: PERRLA, EOM intact HENT: Normocephalic, atraumatic, moist mucous membranes NECK: SUPPLE, no JVD, no lymphadenopathy CV: Regular rate and rhythm, S1S2 normal, no murmurs/rubs/gallops RESPIRATORY: Clear to auscultation bilaterally, no rales/rhonchi/wheezes GI: Normoactive bowel sounds in all 4 quadrants, soft, nontender, nondistended, no rebound or guarding, no organomegaly EXT: Bandage over right hip where incision was made, c/d/i. No extremity edema INTEGUMENTARY: Bandage over right hip where incision was made, c/d/i. Otherwi se no rashes NEUROLOGIC: Cranial Nerves II-XII are intact, no focal deficits PSYCHIATRIC: Mood and affect are normal LABORATORY DATA: Reviewed. Please see below WBC 6.9 hgb 8.3 platelets 278 na 143 K 3.8 Cr 1.32 MICROBIOLOGY: Blood cultures x 2 sets: NGTD IMAGING: CT right hip 05/19/20: There is no high density collection to indicate hematoma. CXR: 1. Minimal left basilar and right infrahilar atelectasis versus pneumonia. 2. Blunting of the left costophrenic angle which may be minimal pleural fluid or basilar pleural thickening. 3. Tortuous ectatic aorta. ASSESSMENT: 75-year-old M with CAD s/p CABG, diabetes, hypertension, CKD, hyperlipidemia, hypothyroidism, history of GI bleed secondary to NSAIDs history of stomach MALT cancer, bladder cancer, history of skin cancer, osteoarthritis who on 05/15/2020 underwent total joint replacement of the right hip for progressively worsening right hip pain for whom medicine is consulted for medical co-management with course c/b dyspnea without hypoxemia liley 2/2 atelectasis. PLAN: Shortness of breath likely atelectasis: RESOLVED. Did well with PT this AM. Being discharged home. -CXR without evidence of PNA -No prior echocardiogram on file -Using Q2hr incentive spirometer and showing some O2 improvements -BNP 1279, troponin neg. Euvolemic on exam. Continue home lasix at discharge -C/w cardiac meds Tachycardia poss 2/2 intermittent pain? RESOLVED -Ortho not suspicious of site infection -C/w treatment above -Pain control Osteoarthritis s/p total right hip replacement POD #6. -Pain control PO per primary team -PT/OT, wound care to incision site -Ortho primary HTN -Stable -C/w home meds CKD Stage III: stable -Baseline Cr likely 1.5-2 -Daily labs CAD s/p CABG -C/w PO cardiac meds, lasix HLD -PO statin Hypothyroidism -Last TSH in 01/2020 was 23.8 -TSH wnl this admission -PO levothyroxine DVT px -xarelto RESOLVED issues this hospital stay: SIRS- no cause identified- resolved -CXR above, UA neg, blood cultures x2 sets NG. -CT hip above, Incision site where surgery took place appears clean -Received 3 days of IV Ceftriaxone prophylactically Ileus likely 2/2 to dehydration and worsened by narcotics- resolved Hypotension likely 2/2 to decreased PO intake, possibly SIRS-resolved Urinary retention poss 2/2 to anesthesia vs. underlying BPH- resolved -Holguin catheter placed 05/17/20, d/evaristo on 05/19/20 -Hx of having disrupted urination DISPOSITION: Medically cleared for discharge per medicine. Being discharged by orthopedics this morning. VS,Fishbone, I+O VS, Fishbone, I+O Laboratory Tests 05/21/20 05:24 Vital Signs Date Time Temp Pulse Resp B/P (MAP) Pulse Ox O2 Delivery O2 Flow Rate FiO2 05/21/20 08:40 86 148/80 05/21/20 06:00 97.9 19 96 Room Air 05/20/20 04:00 2.0 I&O- Last 24 Hours up to 6 AM 05/21/20 06:00 Intake Total 1360 ml Output Total 300 ml Balance 1060 ml AYUSH STEVE MD May 21, 2020 09:00
--- NOTE | 2020-05-29 07:17 | DS ---
DATE OF ADMISSION: 05/15/2020 DATE OF DISCHARGE: 05/21/2020 ATTENDING PHYSICIAN: Dr. Francisco Santizo ADMITTING DIAGNOSIS: Right hip osteoarthritis. OTHER DIAGNOSES: 1. Coronary artery disease, status post coronary artery bypass graft. 2. History of a myocardial infarction. 3. History of bladder, stomach, and skin cancer. 4. Diabetes. 5. Chronic kidney disease. 6. Hypothyroid.. DISCHARGE DIAGNOSIS: Right hip osteoarthritis, status post right total hip arthroplasty. HISTORY: Patient is a 75-year-old male who had progressively worsening right hip pain and stiffness. He failed to improve with conservative measures. He continued to have symptoms with weightbearing activities and activities of daily living. He consented for an elective right total hip arthroplasty with Dr. Santizo for his continued symptoms. OPERATION PERFORMED: Right total hip arthroplasty. HOSPITAL COURSE: The patient underwent a right total hip arthroplasty under spinal anesthesia, which was uneventful. During his hospital stay, he developed hypotension, decreased hemoglobin and hematocrit, shortness of breath, urinary retention, and an ileus. All of these had resolved at time of discharge. He was discharged on oral pain medications and will resume his preoperative medications and diet. He will use his thromboembolic deterrent stockings and take his anticoagulant as directed to prevent deep venous thrombosis. Patient will followup in our office in 10-14 days for a wound check and staple removal. He is encouraged to contact our office sooner if there is any increase in pain, redness, drainage, numbness or tingling in the extremity, fever greater than 101 degrees, or any other concerns. Please see medical records for additional details. john Cook [facility]PITALSilvio
== END 2020-05-21 10:00 | disposition home health service (06) | DRG 470 ==
LOC: M OR 07:11 → M MS5PR 10:53 → M PCU 05-17 16:49 → M MS5PR 05-20 22:07
PROVIDERS: ADMIT Orthopaedic Surgery; ATTEND Orthopaedic Surgery
PROC: 0SR902Z Replacement of Right Hip Joint with Metal on Polyethylene Synthetic Substitute, Open Approach (ICD-10-PCS; principal; 2020-05-15 08:30)
DX: M16.11 Unilateral primary osteoarthritis, right hip (principal); J98.11 Atelectasis; K56.7 Ileus, unspecified; R65.10 Systemic inflammatory response syndrome (SIRS) of non-infectious origin without acute organ dysfunction; I13.0 Hypertensive heart and chronic kidney disease with heart failure and stage 1 through stage 4 chronic kidney disease, or unspecified chronic kidney disease; I25.10 Atherosclerotic heart disease of native coronary artery without angina pectoris; I25.2 Old myocardial infarction; R26.89 Other abnormalities of gait and mobility; I50.9 Heart failure, unspecified; E03.9 Hypothyroidism, unspecified; I95.9 Hypotension, unspecified; R33.9 Retention of urine, unspecified; N40.1 Benign prostatic hyperplasia with lower urinary tract symptoms; E86.0 Dehydration; N18.30 Chronic kidney disease, stage 3 unspecified; E78.5 Hyperlipidemia, unspecified; E11.22 Type 2 diabetes mellitus with diabetic chronic kidney disease; Z96.642 Presence of left artificial hip joint; Z96.652 Presence of left artificial knee joint; Z87.891 Personal history of nicotine dependence; Z85.51 Personal history of malignant neoplasm of bladder; Z85.028 Personal history of other malignant neoplasm of stomach; Z85.828 Personal history of other malignant neoplasm of skin; Z95.1 Presence of aortocoronary bypass graft; Z92.21 Personal history of antineoplastic chemotherapy; Z79.02 Long term (current) use of antithrombotics/antiplatelets; Z79.899 Other long term (current) drug therapy; Z88.6 Allergy status to analgesic agent

== ENCOUNTER → 2020-06-24 | Outpatient (REF) | payer MEDICARE ==
[~2020-06-24] MED LIST changes: +ACET650T15 PO; +AMLO1TAB33 PO; +AMLO2.5T3 PO; +BENA25CA4 PO; +FOCUS FACTOR PO; +FURO20TA2 PO; -LR 1,000 ML IV ONE; +PERC5TAB12 PO; +SYNT50TA PO; +TRAZ-257 PO; +XARE10TA PO; -ceFAZolin SOD 2 GM in IV 1 EA IV ONE
[2020-06-24 18:09] LABS: PERCENT SATURATION 9.6 % (19.7-50.0)
== END ==
LOC: M LAB REF 17:02
PROVIDERS: ATTEND Internal Medicine Nephrology
DX: D50.9 Iron deficiency anemia, unspecified (principal)

== ENCOUNTER → 2020-09-12 | Outpatient (REF) | payer MEDICARE | LOC: M SFHCCLAY 09:29 | PROVIDERS: ATTEND Family Medicine | DX: R31.29 Other microscopic hematuria (principal) ==

== ENCOUNTER → 2020-10-01 | Outpatient (REF) | payer MEDICARE, OTHER ==
[2020-10-01 18:48] LABS: APPEARANCE, URINE HAZY (CLEAR); BACTERIA, URINE AUTO NEGATIVE (NEGATIVE); BILIRUBIN, URINE AUTO NEGATIVE (NEGATIVE); BLOOD, URINE BLOOD NEGATIVE (NEGATIVE); COLOR, URINE YELLOW (YELLOW); GLUCOSE, URINE (UA) AUTO NEGATIVE (NEGATIVE); KETONE, URINE AUTO TRACE mg/dL (NEGATIVE); LEUKOCYTE ESTERASE, URINE AUTO NEGATIVE (NEGATIVE); MUCUS, URINE SMALL (NEGATIVE); NITRITE, URINE AUTO NEGATIVE (NEGATIVE); PROTEIN, URINE AUTO 1+ mg/dL (NEGATIVE); RBC, URINE AUTO 1 /HPF (0-3); SPECIFIC GRAVITY URINE AUTO 1.024 (1.002-1.035); SQUAMOUS EPITHELIAL CELL UR AU 0 /HPF (0-6); UROBILINOGEN, URINE AUTO 0.2 mg/dL (0.0-2.0); WBC, URINE AUTO 1 /HPF (0-3)
== END ==
LOC: M SMT 17:22
PROVIDERS: ATTEND Nurse Practitioner Women's Health
DX: R31.29 Other microscopic hematuria (principal)

== ENCOUNTER → 2020-10-10 | Outpatient (REF) | payer MEDICARE ==
[2020-10-10 11:45] LABS: CALCIUM LEVEL 9.3 MG/DL (8.8-10.2); CREATININE FOR GFR 1.6 MG/DL (0.70-1.30); GLOMERULAR FILTRATION RATE 44.8 (>42); POTASSIUM SERUM 4.4 MEQ/L (3.5-5.1)
== END ==
LOC: M LABSMT 08:58
PROVIDERS: ATTEND Nurse Practitioner Women's Health
DX: R31.29 Other microscopic hematuria (principal)

== ENCOUNTER → 2020-10-10 | Outpatient (CLI) | payer MEDICARE ==
--- NOTE | 2020-10-10 15:37 | REP ---
INDICATION: MICROSCOPIC HEMATURIA COMPARISON: 01/06/2019 TECHNIQUE: Axial noncontrast images from the lung bases to the pubic symphysis with coronal and sagittal reformations. This CT examination was performed using the following dose reduction techniques: Automated exposure control, adjustment of mA and/or kv according to the patient's size, and use of iterative reconstruction technique. FINDINGS: Kidneys demonstrate very small calcifications likely reflecting renovascular calcifications related to atherosclerotic disease. Mild chronic appearing symmetric perinephric stranding is appreciated and there is no evidence for hydronephrosis. Left renal hypodensities are relatively stable compared to 2019 and likely represent cysts. No obvious further renal abnormality or ureteral abnormality appreciated by noncontrast evaluation. Stable 2 cm benign hepatic cyst along the inferior tip of the right hepatic lobe remains stable. Spleen, atrophic pancreas, gallbladder, and bilateral adrenal glands are normal/stable. The enteric system demonstrates fecal stasis and diffuse diverticulosis without acute inflammatory process. No obstruction or perforation. Evaluation of the pelvis is limited by beam hardening artifact from bilateral hip prosthesis despite metallic artifact reduction technique, but no obvious abnormalities appreciated. Small fat containing left inguinal hernia noted. No ascites. No free air. No adenopathy. No focal inflammatory stranding. Significant atherosclerotic disease to the aorta and vasculature noted without aneurysm. Musculoskeletal structures demonstrate degenerative changes. IMPRESSION: 1. Noncontrast evaluation was performed due to the patient's elevated creatinine level. The kidneys demonstrate renal vascular calcifications along with left renal hypodensities which remains stable and were previously identified as simple cysts. No further obvious urinary tract pathology is appreciated by current exam. 2. Diverticulosis. 3. Benign hepatic cyst. 4. Atherosclerotic disease. <Electronically signed by Gregg Baptiste > 10/10/20 [id number]
== END ==
LOC: M RAD 14:17
PROVIDERS: ATTEND Nurse Practitioner Women's Health
DX: R31.29 Other microscopic hematuria (principal); I25.10 Atherosclerotic heart disease of native coronary artery without angina pectoris; K76.89 Other specified diseases of liver

== ENCOUNTER 2020-10-25 13:44 | Outpatient (CLI) | payer MEDICARE ==
[~2020-10-25] VITALS: Ht 172.7 cm; Wt 88.6 kg
[~2020-10-25 13:44] MED LIST changes: +ALBUTEROL SULFATE 2.5 MG/0.5 ML INH NEB SOLN INH PRN; +EPINEPHrine INJ 1 MG/ML 1ML AMP IM PRN; +diphenhydrAMINE 50MG/ML VIAL (J1200) IV PRN; +methylPREDNISolone 125MG 2ML VIAL IV PRN
[2020-10-25 13:45] VITALS: BP 138/69
[2020-10-25] MEDS ORDERED: NS 1,000 ML IV SCH (14:00)
[2020-10-25] MEDS ORDERED: FERRIC CARBOXYMALTOSE INJ 750 MG, VIAL MATE ADAPTER 1 EACH in NS 250 ML IV ONE (14:00)
[2020-10-25] MEDS ORDERED: PLAV1TAB2 PO (14:24)
[2020-10-25 15:14] VITALS: BP 156/76
[2020-10-25 16:00] VITALS: BP 175/78
== END 2020-10-25 16:00 | disposition home or self-care (01) ==
LOC: M INFU 13:44
PROVIDERS: ATTEND Internal Medicine Nephrology
DX: D50.9 Iron deficiency anemia, unspecified (principal); Z88.6 Allergy status to analgesic agent; Z88.8 Allergy status to other drugs, medicaments and biological substances
CPT/HCPCS: 96365; 96366; J1439

== ENCOUNTER → 2020-11-21 | Outpatient (CLI) | payer MEDICARE ==
[~2020-11-21] MED LIST changes: -ALBUTEROL SULFATE 2.5 MG/0.5 ML INH NEB SOLN INH PRN; -EPINEPHrine INJ 1 MG/ML 1ML AMP IM PRN; +METO1TAB87 PO; +PLAV1TAB2 PO; -diphenhydrAMINE 50MG/ML VIAL (J1200) IV PRN; -methylPREDNISolone 125MG 2ML VIAL IV PRN
== END ==
LOC: M LABSMTC 11:39
PROVIDERS: ATTEND Anesthesiology
DX: Z11.52 Encounter for screening for COVID-19 (principal)

== ENCOUNTER 2020-11-26 06:58 | Day surgery (SDC) | payer MEDICARE ==
[~2020-11-26] VITALS: Ht 177.8 cm; Wt 86.2 kg
[~2020-11-26 06:58] MED LIST changes: +NS 1,000 ML IV ONE
[2020-11-26] MEDS ORDERED: propofoL 500 MG/50 ML VIAL As Ordered ONE (07:27)
[2020-11-26] MEDS ORDERED: LIDOCAINE 2% 100MG/5ML SDV (FOR ANES.) As Ordered ONE (07:27)
[2020-11-26] MEDS ORDERED: fentaNYL 100 MCG/2 ML INJECTION (J3010) As Ordered ONE (07:28)
--- NOTE | 2020-11-26 08:15 | ROOR ---
Patient Name: Tin Ortega Procedure Date: 11/26/2020 7:57 AM Date of : 1945 Age: 75 Room: [facility] Gender: Male Note Status: Finalized Procedure: Upper GI endoscopy Indications: Surveillance procedure, Follow-up of MALT lymphoma Providers: Henrry PALACIOS MD Referring MD: Pawan Benedict MD Requesting Provider: Medicines: Monitored Anesthesia Care Complications: No immediate complications. Procedure: Pre-Anesthesia Assessment: - The heart rate, respiratory rate, oxygen saturations, blood pressure, adequacy of pulmonary ventilation, and response to care were monitored throughout the procedure. The Endoscope was introduced through the mouth, and advanced to the second part of duodenum. The upper GI endoscopy was accomplished without difficulty. The patient tolerated the procedure well. Findings: A large scar was found on the greater curvature of the gastric body. The scar tissue was healthy in appearance. There are mild mucosal changes of neovascularisations/vascular ectasias likely related to radiation effect. Biopsies were taken with a cold forceps for histology. The exam was otherwise without abnormality. Impression: - Mucosal scar in the gastric body (greater curvature). Biopsied. - The examination was otherwise normal. Recommendation: - Repeat upper endoscopy in 2 years for surveillance. Procedure Code(s): --- Professional --- 51625, Esophagogastroduodenoscopy, flexible, transoral; with biopsy, single or multiple Diagnosis Code(s): --- Professional --- B96.81, Helicobacter pylori [H. 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 All rights reserved. The codes documented in this report are preliminary and upon tower supervisor review may be revised to meet current compliance requirements. Henrry Palacios MD Henrry PALACIOS MD 11/26/2020 8:15:03 AM Electronically signed by Henrry PALACIOS MD Number of Addenda: 0 Note Initiated On: 11/26/2020 7:57 AM Estimated Blood Loss: Estimated blood loss: none.
--- NOTE | 2020-11-26 08:43 | ROOR ---
Patient Name: Tin Ortega Procedure Date: 11/26/2020 7:58 AM Date of : 1945 Age: 75 Room: [facility] Gender: Male Note Status: Finalized Procedure: Colonoscopy Indications: High risk colon cancer surveillance: Personal history of colonic polyps Providers: Henrry PALACIOS MD Referring MD: Pawan Benedict MD Requesting Provider: Medicines: Monitored Anesthesia Care Complications: No immediate complications. Procedure: Pre-Anesthesia Assessment: - The heart rate, respiratory rate, oxygen saturations, blood pressure, adequacy of pulmonary ventilation, and response to care were monitored throughout the procedure. The Colonoscope was introduced through the anus and advanced to the terminal ileum, with identification of the appendiceal orifice and IC valve. The colonoscopy was somewhat difficult due to multiple diverticula in the colon. The patient tolerated the procedure well. The quality of the bowel preparation was good. Findings: The perianal and digital rectal examinations were normal. Five sessile polyps were found in the sigmoid colon, splenic flexure, descending colon and cecum. The polyps were 4 to 7 mm in size. These polyps were removed with a cold snare. Resection and retrieval were complete. Multiple small and large-mouthed diverticula were found in the sigmoid colon. There was evidence of diverticular spasm. Anal papilla(e) were hypertrophied. Small Internal Hemorrhoids. Impression: - Five 4 to 7 mm polyps in the sigmoid colon, at the splenic flexure/descending colon and in the cecum, removed with a cold snare. Resected and retrieved. - Moderate to severe diverticulosis with muscular hypertrophy and spasm in the sigmoid colon. - Small Internal Hemorrhoids. - The exam was otherwise normal to the cecum. Recommendation: - Consider repeat colonoscopy in 3 years for surveillance. (dep on health status at that time). - Resume Plavix (clopidogrel) at prior dose 11/29/2020. Procedure Code(s): --- Professional --- 18493, Colonoscopy, flexible; with removal of tumor(s), polyp(s), or other lesion(s) by snare technique Diagnosis Code(s): --- Professional --- K57.30, Diverticulosis of large intestine without perforation or abscess without bleeding K62.89, Other specified diseases of anus and rectum K63.5, Polyp of colon Z86.010, Personal history of colonic polyps CPT copyright 2019 [employer]. All rights reserved. The codes documented in this report are preliminary and upon pre coder review may be revised to meet current compliance requirements. Henrry Palacios MD Henrry PALACIOS MD 11/26/2020 8:43:20 AM Electronically signed by Henrry PALACIOS MD Number of Addenda: 0 Note Initiated On: 11/26/2020 7:58 AM Estimated Blood Loss: Estimated blood loss: none.
[2020-11-26 09:00] VITALS: BP 110/59
== END 2020-11-26 09:05 | disposition home or self-care (01) ==
LOC: M OPP 06:58
PROVIDERS: ATTEND Internal Medicine Gastroenterology
DX: Z12.11 Encounter for screening for malignant neoplasm of colon (principal); Z86.010 Personal history of colon polyps; K62.89 Other specified diseases of anus and rectum; D12.0 Benign neoplasm of cecum; D12.3 Benign neoplasm of transverse colon; D12.5 Benign neoplasm of sigmoid colon; K57.30 Diverticulosis of large intestine without perforation or abscess without bleeding; I50.9 Heart failure, unspecified; K31.89 Other diseases of stomach and duodenum; C88.4 Extranodal marginal zone B-cell lymphoma of mucosa-associated lymphoid tissue [MALT-lymphoma]; B96.81 Helicobacter pylori [H. pylori] as the cause of diseases classified elsewhere; Z79.899 Other long term (current) drug therapy; Z88.8 Allergy status to other drugs, medicaments and biological substances
CPT/HCPCS: 43239; 45385; 88305; J3010

== ENCOUNTER → 2021-01-07 | Outpatient (REF) | payer MEDICARE ==
[~2021-01-07] MED LIST changes: -NS 1,000 ML IV ONE
== END ==
LOC: M LAB REF 19:23
PROVIDERS: ATTEND Dermatology
DX: C44.319 Basal cell carcinoma of skin of other parts of face (principal)

== ENCOUNTER → 2021-03-25 | Outpatient (REF) | payer MEDICARE ==
[2021-03-25 11:24] LABS: HEMATOCRIT 38.6 % (42.0-52.0); HEMOGLOBIN 12.4 g/dl (13.5-17.5); MEAN CORPUSCULAR HEMOGLOBIN 29.9 pg (27.0-33.0); MEAN CORPUSCULAR HGB CONC 32.1 g/dl (32.0-36.5); PLATELET COUNT, AUTOMATED 283 10^3/uL (150-450); RED BLOOD COUNT 4.15 10^6/uL (4.30-6.10); WHITE BLOOD COUNT 6.6 10^3/uL (4.0-10.0)
[2021-03-25 11:50] LABS: HEMOGLOBIN A1c 6.8 %
[2021-03-25 11:57] LABS: PERCENT SATURATION 15.7 % (19.7-50.0)
== END ==
LOC: M SFHCCLAY 07:43
PROVIDERS: ATTEND Family Medicine
DX: L57.0 Actinic keratosis (principal); E11.9 Type 2 diabetes mellitus without complications; D50.9 Iron deficiency anemia, unspecified; Z79.01 Long term (current) use of anticoagulants

== ENCOUNTER → 2021-05-29 | Outpatient (CLI) | payer MEDICARE ==
--- NOTE | 2021-05-29 14:10 | REP ---
INDICATION: PAIN IN RT HIP. COMPARISON: CT 05/19/2020. TECHNIQUE/RADIOTRACER AND DOSE: Following the intravenous administration of 22.0 mCi technetium 99 M MDP, blood flow and blood pool images are obtained in various projections, followed by 3 hour delayed images. FINDINGS: No asymmetric blood flow is seen. There is mild increased blood pooling in the region of the greater trochanter of the proximal right femur. Photopenic hip prostheses are noted bilaterally. There is mild increased delayed activity in the superior right acetabulum. There is mild increased delayed activity in the greater trochanter of the proximal right femur. There is mild arthritic uptake at the lumbosacral junction on the right. IMPRESSION: Bilateral photopenic hip prostheses. Mild nonspecific increased delayed activity in the superior right acetabulum and in the greater trochanter of the proximal right femur. <Electronically signed by Tony De > 05/29/21 [id number]
== END ==
LOC: M RAD 09:19
PROVIDERS: ATTEND Physician Assistant Surgical
DX: M25.551 Pain in right hip (principal); Z96.643 Presence of artificial hip joint, bilateral
CPT/HCPCS: 78315; A9503

== ENCOUNTER → 2021-07-08 | Outpatient (CLI) | payer MEDICARE ==
[~2021-07-08] MED LIST changes: -AMIO200T3 PO; +AMIO200T49 PO
== END ==
LOC: M PLAIMG 10:01
PROVIDERS: ATTEND Physician Assistant Surgical
DX: M51.37 Other intervertebral disc degeneration, lumbosacral region (principal); M46.1 Sacroiliitis, not elsewhere classified

== ENCOUNTER → 2021-09-01 | Outpatient (REF) | payer MEDICARE ==
[2021-09-01 11:38] LABS: PLATELET COUNT, AUTOMATED 303 10^3/uL (150-450)
[2021-09-01 11:48] LABS: INR 0.98; PARTIAL THROMBOPLASTIN TIME 29.1 SECONDS (25.9-37.0); PROTHROMBIN TIME 13.4 SECONDS (12.7-14.5)
== END ==
LOC: M LABDRAWC 11:00
PROVIDERS: ATTEND Physical Medicine & Rehabilitation
DX: M46.1 Sacroiliitis, not elsewhere classified (principal)

== ENCOUNTER → 2021-09-10 | Outpatient (REF) | payer MEDICARE ==
[2021-09-10 11:57] LABS: HEMATOCRIT 39.6 % (42.0-52.0); HEMOGLOBIN 12.6 g/dl (13.5-17.5); MEAN CORPUSCULAR HEMOGLOBIN 29.7 pg (27.0-33.0); MEAN CORPUSCULAR HGB CONC 31.8 g/dl (32.0-36.5); MEAN CORPUSCULAR VOLUME 93.4 fl (80.0-96.0); PLATELET COUNT, AUTOMATED 261 10^3/uL (150-450); RED BLOOD COUNT 4.24 10^6/uL (4.30-6.10)
[2021-09-10 12:22] LABS: ERYTHROCYTE SEDIMENTATION RATE 16 mm/hr (0-20)
[2021-09-10 12:31] LABS: HEMOGLOBIN A1c 6.5 %
[2021-09-10 12:32] LABS: CALCIUM LEVEL 9.4 MG/DL (8.8-10.2); CREATININE FOR GFR 1.41 MG/DL (0.70-1.30); GLOMERULAR FILTRATION RATE 51.8 (>42); POTASSIUM SERUM 4.7 MEQ/L (3.5-5.1)
== END ==
LOC: M SFHCCLAY 09:15
PROVIDERS: ATTEND Family Medicine
DX: D50.9 Iron deficiency anemia, unspecified (principal); E11.9 Type 2 diabetes mellitus without complications; Z95.1 Presence of aortocoronary bypass graft

== ENCOUNTER → 2021-10-13 | Outpatient (CLI) | payer MEDICARE | LOC: M CLY 07:51 | PROVIDERS: ATTEND Family Medicine | DX: R04.2 Hemoptysis (principal) ==

== ENCOUNTER → 2022-01-06 | Outpatient (REF) | payer MEDICARE ==
[2022-01-06 11:14] LABS: HEMATOCRIT 39.6 % (42.0-52.0); HEMOGLOBIN 12.7 g/dl (13.5-17.5); MEAN CORPUSCULAR HEMOGLOBIN 29.9 pg (27.0-33.0); MEAN CORPUSCULAR HGB CONC 32.1 g/dl (32.0-36.5); MEAN CORPUSCULAR VOLUME 93.2 fl (80.0-96.0); PLATELET COUNT, AUTOMATED 259 10^3/uL (150-450); RED BLOOD COUNT 4.25 10^6/uL (4.30-6.10)
[2022-01-06 11:41] LABS: CALCIUM LEVEL 9.6 MG/DL (8.8-10.2); CREATININE FOR GFR 1.46 MG/DL (0.70-1.30); GLOMERULAR FILTRATION RATE 49.7 (>42); POTASSIUM SERUM 4.4 MEQ/L (3.5-5.1)
[2022-01-06 13:58] LABS: HEMOGLOBIN A1c 6.4 %
== END ==
LOC: M SFHCCLAY 08:46
PROVIDERS: ATTEND Family Medicine
DX: I82.411 Acute embolism and thrombosis of right femoral vein (principal); E11.9 Type 2 diabetes mellitus without complications; I48.0 Paroxysmal atrial fibrillation

== ENCOUNTER → 2022-05-07 | Outpatient (REF) | payer MEDICARE ==
[2022-05-07 11:45] LABS: APPEARANCE, URINE MANUAL CLEAR (CLEAR); COLOR, URINE MANUAL YELLOW (YELLOW)
[2022-05-07 11:46] LABS: BILIRUBIN, URINE MANUAL NEGATIVE (NEGATIVE); BLOOD URINE MANUAL NEGATIVE (NEGATIVE); GLUCOSE, URINE (UA) MANUAL NEGATIVE (NEGATIVE); KETONE, URINE MANUAL NEGATIVE (NEGATIVE); LEUKOCYTE ESTERASE, URINE MAN NEGATIVE (NEGATIVE); NITRITE, URINE MANUAL NEGATIVE (NEGATIVE); PROTEIN, URINE MANUAL TRACE mg/dL (NEGATIVE); UROBILINOGEN, URINE MANUAL NORMAL (NORMAL)
[2022-05-07 12:09] LABS: RBC, URINE 0-1 /hpf (0-3)
[2022-05-07 12:10] LABS: BACTERIA, URINE SMALL AMOUNT; MUCUS, URINE LARGE AMOUNT (NEGATIVE); SQUAMOUS EPITHELIAL CELL URINE SMALL AMOUNT /hpf (SMALL AMT)
[2022-05-07 12:57] LABS: MALB URINE SIEMENS 17.7 MG/L; MAU/CREAT RATIO 6.1 MCG/MG (0.0-30.0)
[2022-05-07 13:28] LABS: HEMOGLOBIN A1c 6.3 %
== END ==
LOC: M SFHCCLAY 08:48
PROVIDERS: ATTEND Family Medicine
DX: I48.0 Paroxysmal atrial fibrillation (principal); E11.9 Type 2 diabetes mellitus without complications; Z86.718 Personal history of other venous thrombosis and embolism

== ENCOUNTER → 2022-09-08 | Outpatient (REF) | payer MEDICARE ==
[~2022-09-08] MED LIST changes: +CLOP75TA99 PO; -PLAV1TAB2 PO
[2022-09-08 17:25] LABS: CALCIUM LEVEL 9.6 MG/DL (8.3-10.6); CREATININE FOR GFR 1.27 MG/DL (0.70-1.30); GLOMERULAR FILTRATION RATE 58.2 (>42); HDL CHOLESTEROL 63.4 MG/DL (>40); POTASSIUM SERUM 4.6 MMOL/L (3.5-5.1)
[2022-09-08 17:26] LABS: CHOLESTEROL RISK RATIO 2.28 (<5)
[2022-09-08 18:36] LABS: HEMOGLOBIN A1c 6.3 % (4.0-6.0)
== END ==
LOC: M SFHCCLAY 10:15
PROVIDERS: ATTEND Family Medicine
DX: Z95.1 Presence of aortocoronary bypass graft (principal); I25.10 Atherosclerotic heart disease of native coronary artery without angina pectoris; E11.9 Type 2 diabetes mellitus without complications

== ENCOUNTER → 2022-10-19 | Outpatient (CLI) | payer MEDICARE ==
[~2022-10-19] MED LIST changes: -CARD2TAB PO; +CARD8TAB2 PO
== END ==
LOC: M RAD 16:52
PROVIDERS: ATTEND Orthopaedic Surgery
DX: Z01.818 Encounter for other preprocedural examination (principal)

== ENCOUNTER → 2023-03-09 | Outpatient (REF) | payer MEDICARE ==
[~2023-03-09] MED LIST changes: -CARD8TAB2 PO; +DOXA2TAB80 PO; -ROSU20TA5 PO; +ROSU20TA61 PO
[2023-03-09 12:08] LABS: BASO # 0.1 10^3/uL (0.0-0.2); BASO % 0.9 % (0.0-1.0); EOS # 0.2 10^3/uL (0.0-0.5); EOS % 2.2 % (0.0-3.0); HEMATOCRIT 41.5 % (42.0-52.0); HEMOGLOBIN 13.7 g/dl (13.5-17.5); LYMPH # 1.6 10^3/uL (1.5-5.0); LYMPH % 20.6 % (24.0-44.0); MEAN CORPUSCULAR HEMOGLOBIN 31.1 pg (27.0-33.0); MEAN CORPUSCULAR VOLUME 94.3 fl (80.0-96.0); MONO # 0.8 10^3/uL (0.0-0.8); MONO % 10.4 % (2.0-8.0); NEUTROPHILS % 65.6 % (36.0-66.0); PLATELET COUNT, AUTOMATED 254 10^3/uL (150-450); WHITE BLOOD COUNT 7.7 10^3/uL (4.0-10.0)
[2023-03-09 12:17] LABS: HEMOGLOBIN A1c 6.6 % (4.0-6.0)
[2023-03-09 12:34] LABS: CREATININE, URINE 43.7 MG/DL
[2023-03-09 12:36] LABS: CALCIUM LEVEL 9.6 MG/DL (8.3-10.6); CHOLESTEROL RISK RATIO 3.07 (<5); CREATININE FOR GFR 1.35 MG/DL (0.70-1.30); GLOMERULAR FILTRATION RATE 54.1 (>35); HDL CHOLESTEROL 60.4 MG/DL (>40); MAU/CREAT RATIO 13.7 MCG/MG (0.0-30.0); NON-HDL-C 125.6 MG/DL; PERCENT SATURATION 22.2 % (19.7-50.0); POTASSIUM SERUM 4.5 MMOL/L (3.5-5.1)
== END ==
LOC: M SFHCCLAY 09:12
PROVIDERS: ATTEND Family Medicine
DX: E11.9 Type 2 diabetes mellitus without complications (principal); E78.00 Pure hypercholesterolemia, unspecified; I48.0 Paroxysmal atrial fibrillation; E03.9 Hypothyroidism, unspecified; D50.9 Iron deficiency anemia, unspecified

== ENCOUNTER → 2023-08-13 | Outpatient (REF) | payer MEDICARE | LOC: M SFHCDERM 13:48 | PROVIDERS: ATTEND Physician Assistant | DX: C44.321 Squamous cell carcinoma of skin of nose (principal); C44.212 Basal cell carcinoma of skin of right ear and external auricular canal ==

== ENCOUNTER → 2023-09-02 | Outpatient (REF) | payer MEDICARE ==
[2023-09-02 13:07] LABS: CREATININE FOR GFR 1.3 MG/DL (0.70-1.30); GLOMERULAR FILTRATION RATE 56.5 (>35); POTASSIUM SERUM 4.6 MMOL/L (3.5-5.1)
[2023-09-02 13:27] LABS: HEMOGLOBIN A1c 6.2 % (4.0-6.0)
== END ==
LOC: M SFHCCLAY 07:08
PROVIDERS: ATTEND Family Medicine
DX: E11.9 Type 2 diabetes mellitus without complications (principal); D50.9 Iron deficiency anemia, unspecified

== ENCOUNTER → 2023-11-30 | Outpatient (REF) | payer MEDICARE | LOC: M SFHCDERM 18:23 | PROVIDERS: ATTEND Physician Assistant | DX: C44.321 Squamous cell carcinoma of skin of nose (principal) ==

== ENCOUNTER → 2024-02-09 | Outpatient (REF) | payer MEDICARE ==
[2024-02-09 12:06] LABS: BASO # 0.1 10^3/uL (0.0-0.2); EOS # 0.3 10^3/uL (0.0-0.5); EOS % 4.1 % (0.0-3.0); HEMATOCRIT 38.7 % (42.0-52.0); HEMOGLOBIN 12.7 g/dl (13.5-17.5); LYMPH # 1.5 10^3/uL (1.5-5.0); LYMPH % 19.8 % (24.0-44.0); MEAN CORPUSCULAR HEMOGLOBIN 30.3 pg (27.0-33.0); MEAN CORPUSCULAR HGB CONC 32.8 g/dl (32.0-36.5); MEAN CORPUSCULAR VOLUME 92.4 fl (80.0-96.0); MONO # 0.9 10^3/uL (0.0-0.8); MONO % 12.2 % (2.0-8.0); NEUTROPHILS # 4.8 10^3/uL (1.5-8.5); NEUTROPHILS % 62.6 % (36.0-66.0); PLATELET COUNT, AUTOMATED 337 10^3/uL (150-450); RED BLOOD COUNT 4.19 10^6/uL (4.30-6.10); WHITE BLOOD COUNT 7.7 10^3/uL (4.0-10.0)
[2024-02-09 12:28] LABS: CALCIUM LEVEL 9.7 MG/DL (8.3-10.6); CREATININE FOR GFR 1.25 MG/DL (0.70-1.30); PERCENT SATURATION 18.3 % (19.7-50.0); POTASSIUM SERUM 4.5 MMOL/L (3.5-5.1)
== END ==
LOC: M SFHCCLAY 07:32
PROVIDERS: ATTEND Family Medicine
DX: E11.9 Type 2 diabetes mellitus without complications (principal); D50.9 Iron deficiency anemia, unspecified

== ENCOUNTER → 2024-06-21 | Outpatient (CLI) | payer MEDICARE ==
[~2024-06-21] MED LIST changes: -ROSU20TA61 PO; +ROSU20TA86 PO
== END ==
LOC: M CLY 08:11
PROVIDERS: ATTEND Family Medicine
DX: Z96.643 Presence of artificial hip joint, bilateral (principal); M47.896 Other spondylosis, lumbar region

== ENCOUNTER → 2024-06-21 | Outpatient (REF) | payer MEDICARE ==
[2024-06-21 11:52] LABS: HEMATOCRIT 39.7 % (42.0-52.0); MEAN CORPUSCULAR HGB CONC 32.7 g/dl (32.0-36.5); MEAN CORPUSCULAR VOLUME 91.7 fl (80.0-96.0); PLATELET COUNT, AUTOMATED 299 10^3/uL (150-450); RED BLOOD COUNT 4.33 10^6/uL (4.30-6.10); WHITE BLOOD COUNT 8.3 10^3/uL (4.0-10.0)
[2024-06-21 11:54] LABS: BLOOD UREA NITROGEN 17 MG/DL (9-23); CALCIUM LEVEL 9.8 MG/DL (8.3-10.6); CARBON DIOXIDE LEVEL 29 MMOL/L (20-31); CHLORIDE LEVEL 106 MMOL/L (98-107); CREATININE FOR GFR 1.21 MG/DL (0.70-1.30); GLOMERULAR FILTRATION RATE > 60.0 (>35); GLUCOSE, FASTING 115 MG/DL (74-106); POTASSIUM SERUM 4.2 MMOL/L (3.5-5.1); SODIUM LEVEL 140 MMOL/L (136-145)
[2024-06-21 11:56] LABS: THYROID STIMULATING HORMONE 4.499 uIU/ML (0.55-4.78)
== END ==
LOC: M SFHCCLAY 07:48
PROVIDERS: ATTEND Family Medicine
DX: I48.0 Paroxysmal atrial fibrillation (principal); D50.9 Iron deficiency anemia, unspecified

== ENCOUNTER 2024-07-12 13:11 | Emergency (ER) | payer MEDICARE ==
[~2024-07-12] VITALS: Ht 172.7 cm; Wt 76.0 kg
[2024-07-12] MEDS ORDERED: OMEP10CASR PO (13:30)
[2024-07-12] MEDS ORDERED: DONE5TAB82 (13:32)
[2024-07-12] MEDS ORDERED: ELIQ5TAB (14:26)
[2024-07-12 14:33] LABS: BASO # 0.1 10^3/uL (0.0-0.2); BASO % 1.2 % (0.0-1.0); EOS # 0.3 10^3/uL (0.0-0.5); EOS % 3.4 % (0.0-3.0); HEMOGLOBIN 12.6 g/dl (13.5-17.5); LYMPH # 1.7 10^3/uL (1.5-5.0); LYMPH % 19.6 % (24.0-44.0); MEAN CORPUSCULAR HEMOGLOBIN 29.4 pg (27.0-33.0); MEAN CORPUSCULAR HGB CONC 32.3 g/dl (32.0-36.5); MEAN CORPUSCULAR VOLUME 91.1 fl (80.0-96.0); MONO % 12.1 % (2.0-8.0); NEUTROPHILS # 5.4 10^3/uL (1.5-8.5); NEUTROPHILS % 63.5 % (36.0-66.0); PLATELET COUNT, AUTOMATED 330 10^3/uL (150-450); RED BLOOD COUNT 4.28 10^6/uL (4.30-6.10); WHITE BLOOD COUNT 8.5 10^3/uL (4.0-10.0)
[2024-07-12 14:45] LABS: ALBUMIN 3.6 G/DL (3.2-5.2); ALKALINE PHOSPHATASE 112 U/L (40-129); ALT/SGPT 20 U/L (7.0-40); AST/SGOT 17 U/L (<34); BILIRUBIN,TOTAL 0.4 MG/DL (0.3-1.2); BLOOD UREA NITROGEN 18 MG/DL (9-23); CALCIUM LEVEL 10.2 MG/DL (8.3-10.6); CARBON DIOXIDE LEVEL 29 MMOL/L (20-31); CHLORIDE LEVEL 105 MMOL/L (98-107); CREATININE FOR GFR 1.17 MG/DL (0.70-1.30); GLOMERULAR FILTRATION RATE > 60.0 (>35); GLUCOSE, FASTING 100 MG/DL (74-106); POTASSIUM SERUM 4.8 MMOL/L (3.5-5.1); SODIUM LEVEL 140 MMOL/L (136-145); TOTAL PROTEIN 7.2 G/DL (5.7-8.2)
[2024-07-12 14:46] LABS: INR 0.96; PROTHROMBIN TIME 13.1 SECONDS (12.5-14.5)
[2024-07-12 16:15] VITALS: BP 156/79; TEMP 97.5; O2SAT 97
== END 2024-07-12 16:18 | disposition home or self-care (01) ==
LOC: M ED 13:11
DX: K92.1 Melena (principal); E11.9 Type 2 diabetes mellitus without complications; E78.00 Pure hypercholesterolemia, unspecified; Z87.891 Personal history of nicotine dependence; Z88.8 Allergy status to other drugs, medicaments and biological substances; Z79.1 Long term (current) use of non-steroidal anti-inflammatories (NSAID); Z79.01 Long term (current) use of anticoagulants; Z79.899 Other long term (current) drug therapy

== ENCOUNTER → 2024-07-21 | Outpatient (CLI) | payer MEDICARE ==
[~2024-07-21] MED LIST changes: +DONE5TAB82; +ELIQ5TAB; +OMEP10CASR PO
== END ==
LOC: M CLY 11:35
PROVIDERS: ATTEND Nurse Practitioner Family
DX: M79.642 Pain in left hand (principal)

== ENCOUNTER → 2024-07-21 | Outpatient (REF) | payer MEDICARE ==
[2024-07-21 18:09] LABS: BASO # 0.1 10^3/uL (0.0-0.2); BASO % 0.9 % (0.0-1.0); EOS # 0.1 10^3/uL (0.0-0.5); EOS % 1.1 % (0.0-3.0); HEMATOCRIT 39.1 % (42.0-52.0); HEMOGLOBIN 12.6 g/dl (13.5-17.5); LYMPH # 1.4 10^3/uL (1.5-5.0); LYMPH % 17.6 % (24.0-44.0); MEAN CORPUSCULAR HEMOGLOBIN 29.3 pg (27.0-33.0); MEAN CORPUSCULAR HGB CONC 32.2 g/dl (32.0-36.5); MEAN CORPUSCULAR VOLUME 90.9 fl (80.0-96.0); MONO % 12.4 % (2.0-8.0); NEUTROPHILS # 5.5 10^3/uL (1.5-8.5); NEUTROPHILS % 67.9 % (36.0-66.0); PLATELET COUNT, AUTOMATED 336 10^3/uL (150-450); WHITE BLOOD COUNT 8.2 10^3/uL (4.0-10.0)
[2024-07-21 18:12] LABS: IRON (FE) 41 UG/DL (65-175); PERCENT SATURATION 13.6 % (19.7-50.0); TOTAL IRON BINDING CAPACITY 301 UG/DL (250-425)
[2024-07-21 18:13] LABS: ALBUMIN 3.6 G/DL (3.2-5.2); ALKALINE PHOSPHATASE 115 U/L (40-129); ALT/SGPT 19 U/L (7.0-40); AST/SGOT 20 U/L (<34); BILIRUBIN,TOTAL 0.4 MG/DL (0.3-1.2); BLOOD UREA NITROGEN 17 MG/DL (9-23); CALCIUM LEVEL 10.1 MG/DL (8.3-10.6); CARBON DIOXIDE LEVEL 29 MMOL/L (20-31); CHLORIDE LEVEL 104 MMOL/L (98-107); CREATININE FOR GFR 1.15 MG/DL (0.70-1.30); GLOMERULAR FILTRATION RATE > 60.0 (>35); GLUCOSE, FASTING 101 MG/DL (74-106); POTASSIUM SERUM 4.7 MMOL/L (3.5-5.1); SODIUM LEVEL 140 MMOL/L (136-145); TOTAL PROTEIN 7.3 G/DL (5.7-8.2)
[2024-07-21 18:14] LABS: FERRITIN 157.1 NG/ML (10.5-307.3)
== END ==
LOC: M SFHCCLAY 11:17
PROVIDERS: ATTEND Nurse Practitioner Family
DX: R41.3 Other amnesia (principal); I48.0 Paroxysmal atrial fibrillation; D50.9 Iron deficiency anemia, unspecified; Z95.1 Presence of aortocoronary bypass graft; K92.2 Gastrointestinal hemorrhage, unspecified

== ENCOUNTER → 2024-09-01 | Outpatient (REF) | payer MEDICARE | LOC: M SFHCDERM 13:51 | PROVIDERS: ATTEND Physician Assistant | DX: C44.519 Basal cell carcinoma of skin of other part of trunk (principal) ==

== ENCOUNTER → 2024-09-22 | Outpatient (REF) | payer MEDICARE ==
[2024-09-22 12:06] LABS: BASO # 0.1 10^3/uL (0.0-0.2); BASO % 1.2 % (0.0-1.0); EOS # 0.2 10^3/uL (0.0-0.5); EOS % 2.7 % (0.0-3.0); HEMOGLOBIN 12.7 g/dl (13.5-17.5); LYMPH # 1.6 10^3/uL (1.5-5.0); LYMPH % 24.8 % (24.0-44.0); MEAN CORPUSCULAR HEMOGLOBIN 28.9 pg (27.0-33.0); MEAN CORPUSCULAR HGB CONC 31.8 g/dl (32.0-36.5); MEAN CORPUSCULAR VOLUME 91.1 fl (80.0-96.0); MONO # 0.7 10^3/uL (0.0-0.8); MONO % 10.9 % (2.0-8.0); NEUTROPHILS % 60.1 % (36.0-66.0); PLATELET COUNT, AUTOMATED 298 10^3/uL (150-450); RED BLOOD COUNT 4.39 10^6/uL (4.30-6.10); WHITE BLOOD COUNT 6.6 10^3/uL (4.0-10.0)
[2024-09-22 12:10] LABS: TOTAL IRON BINDING CAPACITY 295 UG/DL (250-425)
[2024-09-22 12:11] LABS: ALBUMIN 3.7 G/DL (3.2-5.2); ALKALINE PHOSPHATASE 105 U/L (40-129); ALT/SGPT 17 U/L (7.0-40); AST/SGOT 21 U/L (<34); BILIRUBIN,TOTAL 0.4 MG/DL (0.3-1.2); BLOOD UREA NITROGEN 17 MG/DL (9-23); CALCIUM LEVEL 9.7 MG/DL (8.3-10.6); CARBON DIOXIDE LEVEL 30 MMOL/L (20-31); CHLORIDE LEVEL 104 MMOL/L (98-107); CHOLESTEROL LEVEL 217 MG/DL (<200); CHOLESTEROL RISK RATIO 3.58 (<5); FERRITIN 138.5 NG/ML (10.5-307.3); FOLATE 15.37 NG/ML (>5.4); FREE T4 1.18 NG/DL (0.89-1.76); GLOMERULAR FILTRATION RATE > 60.0 (>35); GLUCOSE, FASTING 117 MG/DL (74-106); HDL CHOLESTEROL 60.5 MG/DL (>40); IRON (FE) 82 UG/DL (65-175); LDL CHOLESTEROL 133.1 MG/DL (<100); NON-HDL-C 156.5 MG/DL; PERCENT SATURATION 27.8 % (19.7-50.0); POTASSIUM SERUM 4.7 MMOL/L (3.5-5.1); SODIUM LEVEL 141 MMOL/L (136-145); THYROID STIMULATING HORMONE 6.848 uIU/ML (0.55-4.78); TOTAL PROTEIN 7.3 G/DL (5.7-8.2); TRIGLYCERIDES LEVEL 117 MG/DL (<150); VITAMIN B12 LEVEL 379 PG/ML (211-911)
[2024-09-22 12:28] LABS: HEMOGLOBIN A1c 6.3 % (4.0-6.0)
== END ==
LOC: M SFHCCLAY 08:28
PROVIDERS: ATTEND Nurse Practitioner Family
DX: D50.9 Iron deficiency anemia, unspecified (principal); C85.99 Non-Hodgkin lymphoma, unspecified, extranodal and solid organ sites; R41.3 Other amnesia; E78.00 Pure hypercholesterolemia, unspecified; Z95.1 Presence of aortocoronary bypass graft; I48.0 Paroxysmal atrial fibrillation; Z85.828 Personal history of other malignant neoplasm of skin; E03.9 Hypothyroidism, unspecified; E11.22 Type 2 diabetes mellitus with diabetic chronic kidney disease; N18.31 Chronic kidney disease, stage 3a; J45.20 Mild intermittent asthma, uncomplicated

== ENCOUNTER → 2024-10-19 | Outpatient (CLI) | payer MEDICARE | LOC: M PLAIMG 12:21 | PROVIDERS: ATTEND Nurse Practitioner Family | DX: R41.3 Other amnesia (principal); G31.9 Degenerative disease of nervous system, unspecified; I67.82 Cerebral ischemia ==

== ENCOUNTER → 2024-11-08 | Outpatient (REF) | payer MEDICARE ==
[2024-11-08 18:48] LABS: BASO # 0.1 10^3/uL (0.0-0.2); BASO % 1.1 % (0.0-1.0); EOS # 0.1 10^3/uL (0.0-0.5); EOS % 1.4 % (0.0-3.0); HEMATOCRIT 39.2 % (42.0-52.0); HEMOGLOBIN 12.5 g/dl (13.5-17.5); LYMPH # 1.6 10^3/uL (1.5-5.0); MEAN CORPUSCULAR HEMOGLOBIN 28.9 pg (27.0-33.0); MEAN CORPUSCULAR HGB CONC 31.9 g/dl (32.0-36.5); MEAN CORPUSCULAR VOLUME 90.5 fl (80.0-96.0); MONO # 0.8 10^3/uL (0.0-0.8); MONO % 9.5 % (2.0-8.0); NEUTROPHILS # 5.9 10^3/uL (1.5-8.5); NEUTROPHILS % 68.6 % (36.0-66.0); PLATELET COUNT, AUTOMATED 374 10^3/uL (150-450); RED BLOOD COUNT 4.33 10^6/uL (4.30-6.10); WHITE BLOOD COUNT 8.5 10^3/uL (4.0-10.0)
== END ==
LOC: M SFHCCLAY 14:06
PROVIDERS: ATTEND Physician Assistant
DX: J18.9 Pneumonia, unspecified organism (principal); R79.0 Abnormal level of blood mineral

== ENCOUNTER → 2024-11-08 | Outpatient (CLI) | payer MEDICARE | LOC: M CLY 14:18 | PROVIDERS: ATTEND Physician Assistant | DX: J18.9 Pneumonia, unspecified organism (principal); Z96.612 Presence of left artificial shoulder joint ==

== ENCOUNTER → 2025-02-05 | Outpatient (RCR) | payer MEDICARE ==
[~2025-02-05] MED LIST changes: +ACYC1TAB4 PO; +ALBU2.5V10; +ALBU2.5V10 INH; -AMIO200T49 PO; +AMIO200T54 PO; +ARTIDRO4 OP; +CLOP75TA2; +CYCL1SOL14 OP; +D3 S1CAP3 PO; +DONE5TAB82 PO; -ELIQ5TAB; +ELIQ5TAB PO; +IPRA6SP NARES; +IRON65TA2 PO; +MEMA10TA PO; +METO25TA4 PO; +OMEP-173 PO; +PREDOPD OU; +TIMO5DRO5 OP
== END ==
LOC: M ONCR 01-19 14:54
PROVIDERS: ATTEND General Practice
DX: Z51.0 Encounter for antineoplastic radiation therapy (principal); C34.11 Malignant neoplasm of upper lobe, right bronchus or lung

== ENCOUNTER 2025-02-06 09:45 | Outpatient (RCR) | payer MEDICARE ==
[~2025-02-06 09:45] MED LIST changes: +ACET-1515 PO; -ACET650T15 PO; -ALBU2.5V10 INH; -DONE5TAB82 PO; -IPRA6SP NARES; -METO25TA4 PO; -OMEP-173 PO
[2025-02-14] MEDS ORDERED: DONE5TAB82 PO (20:49)
[2025-02-14] MEDS ORDERED: OMEP-173 PO (20:49)
[2025-02-14] MEDS ORDERED: IPRA6SP NARES (20:53)
[2025-02-14] MEDS ORDERED: ALBU2.5V10 INH (20:53)
[2025-02-14] MEDS ORDERED: ACET-897 PO (20:53)
[2025-02-15] MEDS ORDERED: METO25TA4 PO (12:03)
[2025-02-22] MEDS ORDERED: PROC5TAB57 PO (08:44)
[2025-02-22] MEDS ORDERED: ONDA-83 PO (08:44)
== END 2025-03-08 ==
LOC: M ONCR 09:45
PROVIDERS: ATTEND General Practice
DX: Z51.0 Encounter for antineoplastic radiation therapy (principal); C34.11 Malignant neoplasm of upper lobe, right bronchus or lung

== ENCOUNTER 2025-02-14 17:21 | Inpatient (IN) | payer MEDICARE ==
[~2025-02-14] VITALS: Ht 170.2 cm; Wt 73.0 kg
[~2025-02-14 17:21] MED LIST changes: -ACET-1515 PO; +ACET650T15 PO
[2025-02-14] MEDS: NS (Normal Saline) 0.9% 1,000 ML IV ONE (17:54)
[2025-02-14 17:57] LABS: BASO # 0.1 10^3/uL (0.0-0.2); BASO % 1.1 % (0.0-1.0); EOS # 0.2 10^3/uL (0.0-0.5); EOS % 3.4 % (0.0-3.0); LYMPH # 0.7 10^3/uL (1.5-5.0); LYMPH % 10.5 % (24.0-44.0); MONO # 1.0 10^3/uL (0.0-0.8); MONO % 14.8 % (2.0-8.0); NEUTROPHILS # 4.5 10^3/uL (1.5-8.5); NEUTROPHILS % 69.9 % (36.0-66.0); PLATELET COUNT, AUTOMATED 237 10^3/uL (150-450)
[2025-02-14 18:11] LABS: INR 0.98
[2025-02-14 18:19] LABS: CK-MB VALUE MASS 4.3 NG/ML (<3.6)
[2025-02-14 18:22] LABS: ALT/SGPT 24.0 U/L (7.0-40); AST/SGOT 25.0 U/L (<34); CALCIUM LEVEL 9.3 MG/DL (8.3-10.6); CARBON DIOXIDE LEVEL 26.0 MMOL/L (20-31); CHLORIDE LEVEL 106.0 MMOL/L (98-107); CPK CREATINE PHOSPHOKINASE 119.0 U/L (46-171); CREATININE FOR GFR 1.5 MG/DL (0.70-1.30); GLOMERULAR FILTRATION RATE 46.2 (>35); MB/CK RELATIVE INDEX 3.61 (< OR =4); POTASSIUM SERUM 4.4 MMOL/L (3.5-5.1); SODIUM LEVEL 144.0 MMOL/L (136-145)
[2025-02-14 18:23] LABS: FREE T4 1.24 NG/DL (0.89-1.76)
[2025-02-14 18:24] LABS: APPEARANCE, URINE HAZY (CLEAR); BACTERIA, URINE AUTO NEGATIVE (NEGATIVE); BILIRUBIN, URINE AUTO NEGATIVE (NEGATIVE); BLOOD, URINE BLOOD NEGATIVE (NEGATIVE); GLUCOSE, URINE (UA) AUTO NEGATIVE (NEGATIVE); KETONE, URINE AUTO NEGATIVE (NEGATIVE); LEUKOCYTE ESTERASE, URINE AUTO NEGATIVE (NEGATIVE); MUCUS, URINE SMALL (NEGATIVE); NITRITE, URINE AUTO NEGATIVE (NEGATIVE); PROTEIN, URINE AUTO 1+ mg/dL (NEGATIVE); RBC, URINE AUTO 1 /HPF (0-3); SPECIFIC GRAVITY URINE AUTO 1.024 (1.002-1.035); SQUAMOUS EPITHELIAL CELL UR AU 0 /HPF (0-6); UROBILINOGEN, URINE AUTO 0.2 mg/dL (0.0-2.0); WBC, URINE AUTO 1 /HPF (0-3)
[2025-02-14] MEDS: cefTRIAXone SOD 2 GM in DEXTROSE 5% (D5W) ADV/MINI-BAG 50 ML IV ONE (18:35)
[2025-02-14] MEDS: NS 500 ML IV ONE ×2 (18:42→20:40)
[2025-02-14 19:09] LABS: CK-MB VALUE MASS 2.9 NG/ML (<3.6)
[2025-02-14 19:24] LABS: CPK CREATINE PHOSPHOKINASE 92.0 U/L (46-171); MB/CK RELATIVE INDEX 3.15 (< OR =4)
[2025-02-14] MEDS ORDERED: OMEP-173 PO (20:49)
[2025-02-14] MEDS ORDERED: DONE5TAB82 PO (20:49)
[2025-02-14] MEDS ORDERED: ALBU2.5V10 INH (20:53)
[2025-02-14] MEDS ORDERED: ACET-897 PO (20:53)
[2025-02-14] MEDS ORDERED: IPRA6SP NARES (20:53)
[2025-02-14] MEDS ORDERED: HOME MED LIST COMPLETE! XX SCH (20:55)
[2025-02-14] MEDS: AMIODARONE HCL 150 MG in IV 1 EA IV SCH (21:08)
[2025-02-14] MEDS: DIGOXIN INJ 0.5 MG/2 ML AMP IV STA ×2 (21:12→23:59)
[2025-02-14] MEDS ORDERED: ISOVUE-370 76% 100 ML VIAL As Ordered ONE (22:43)
[2025-02-15] MEDS ORDERED: ALBUTEROL SULFATE 2.5 MG/0.5 ML INH CONCENTRATE NEB SOLN INH PRN (01:40)
[2025-02-15] MEDS ORDERED: MAALOX 30 ML SUSP *UDC PO PRN (01:40)
[2025-02-15] MEDS ORDERED: ACETAMINOPHEN 325 MG TAB PO PRN (01:40)
[2025-02-15] MEDS ORDERED: MOM 30 ML SUSPENSION UDC PO PRN (01:40)
[2025-02-15] MEDS: traZODone 100 MG TAB PO SCH (02:10)
[2025-02-15] MEDS: LEVOTHYROXINE 50 MCG TABLET (0.05 MG) PO SCH (05:56)
[2025-02-15 06:07] LABS: PLATELET COUNT, AUTOMATED 215 10^3/uL (150-450)
[2025-02-15] MEDS: METOPROLOL TART 25 MG TABLET PO SCH ×2 (06:24→11:55)
[2025-02-15 06:56] LABS: ALT/SGPT 24.0 U/L (7.0-40); AST/SGOT 25.0 U/L (<34); CALCIUM LEVEL 8.7 MG/DL (8.3-10.6); CARBON DIOXIDE LEVEL 27.0 MMOL/L (20-31); CHLORIDE LEVEL 111.0 MMOL/L (98-107); CREATININE FOR GFR 1.15 MG/DL (0.70-1.30); GLOMERULAR FILTRATION RATE 63.5 (>35); MAGNESIUM LEVEL 2.0 MG/DL (1.8-2.4); POTASSIUM SERUM 4.1 MMOL/L (3.5-5.1); SODIUM LEVEL 147.0 MMOL/L (136-145)
[2025-02-15 07:14] VITALS: TEMP 96.6
[2025-02-15] MEDS: PANTOPRAZOLE 40MG VIAL IV SCH (08:03)
[2025-02-15] MEDS: DOCUSATE SODIUM 100 MG CAPSULE PO SCH (08:04)
[2025-02-15] MEDS: CLOPIDOGREL 75 MG TAB PO SCH (08:04)
[2025-02-15] MEDS: FERROUS SULFATE 325 MG TAB PO SCH (08:04)
[2025-02-15] MEDS: APIXABAN 5 MG TAB PO SCH (08:04)
[2025-02-15] MEDS: DONEPEZIL 5 MG TAB PO SCH (08:05)
[2025-02-15] MEDS: MEMANTINE 5 MG TABLET PO SCH (08:06)
[2025-02-15] MEDS: TIMOLOL MALEATE 0.25% OPHTH SOLN 5 ML OD SCH (08:09)
[2025-02-15 08:28] LABS: DIGOXIN LEVEL 0.9 NG/ML (0.8-2.0)
[2025-02-15] MEDS: DIGOXIN 0.125 MG TAB PO SCH (08:28)
[2025-02-15] MEDS ORDERED: METOPROLOL TART 25 MG TABLET PO SCH (09:00)
[2025-02-15 11:52] VITALS: O2SAT 99
[2025-02-15 11:55] VITALS: BP 143/80
[2025-02-15 12:00] VITALS: BP 137/77
[2025-02-15] MEDS ORDERED: METO25TA4 PO (12:03)
[2025-02-15] MEDS: METOPROLOL TART 25 MG TABLET PO ONE (12:15)
== END 2025-02-15 12:38 | disposition home or self-care (01) | DRG 309 ==
LOC: EDBD 17:21 → M ED 17:21 → M ED INP 02-15 01:40
PROVIDERS: ADMIT Student in an Organized Health Care Education/Training Program; ATTEND Student in an Organized Health Care Education/Training Program
DX: I48.91 Unspecified atrial fibrillation (principal); C34.91 Malignant neoplasm of unspecified part of right bronchus or lung; N17.9 Acute kidney failure, unspecified; E87.0 Hyperosmolality and hypernatremia; I12.9 Hypertensive chronic kidney disease with stage 1 through stage 4 chronic kidney disease, or unspecified chronic kidney disease; E11.22 Type 2 diabetes mellitus with diabetic chronic kidney disease; E78.5 Hyperlipidemia, unspecified; E03.9 Hypothyroidism, unspecified; J40 Bronchitis, not specified as acute or chronic; N18.9 Chronic kidney disease, unspecified; I25.10 Atherosclerotic heart disease of native coronary artery without angina pectoris; Z95.5 Presence of coronary angioplasty implant and graft; Z85.51 Personal history of malignant neoplasm of bladder; Z96.643 Presence of artificial hip joint, bilateral; Z79.01 Long term (current) use of anticoagulants; Z79.890 Hormone replacement therapy; Z79.899 Other long term (current) drug therapy; Z88.6 Allergy status to analgesic agent; Z88.8 Allergy status to other drugs, medicaments and biological substances

== ENCOUNTER → 2025-02-20 | Outpatient (REF) | payer MEDICARE ==
[~2025-02-20] MED LIST changes: +ALBU2.5V10 INH; +DONE5TAB82 PO; +IPRA6SP NARES; +METO25TA4 PO; +OMEP-173 PO; +ONDA-83 PO; +PROC5TAB57 PO
[2025-02-20 14:35] LABS: BASO # 0.1 10^3/uL (0.0-0.2); BASO % 1.3 % (0.0-1.0); EOS # 0.3 10^3/uL (0.0-0.5); EOS % 4.5 % (0.0-3.0); LYMPH # 0.7 10^3/uL (1.5-5.0); LYMPH % 9.8 % (24.0-44.0); MONO # 1.1 10^3/uL (0.0-0.8); MONO % 15.7 % (2.0-8.0); NEUTROPHILS # 4.8 10^3/uL (1.5-8.5); NEUTROPHILS % 68.3 % (36.0-66.0); PLATELET COUNT, AUTOMATED 242 10^3/uL (150-450)
[2025-02-20 15:03] LABS: ALT/SGPT 25.0 U/L (7.0-40); AST/SGOT 26.0 U/L (<34); CALCIUM LEVEL 9.3 MG/DL (8.3-10.6); CARBON DIOXIDE LEVEL 31.0 MMOL/L (20-31); CHLORIDE LEVEL 103.0 MMOL/L (98-107); CREATININE FOR GFR 1.23 MG/DL (0.70-1.30); GLOMERULAR FILTRATION RATE 58.6 (>35); MAGNESIUM LEVEL 2.2 MG/DL (1.8-2.4); POTASSIUM SERUM 4.4 MMOL/L (3.5-5.1); SODIUM LEVEL 142.0 MMOL/L (136-145)
[2025-02-20 15:04] LABS: FREE T4 1.33 NG/DL (0.89-1.76)
== END ==
LOC: M LABDRWCV 12:10
PROVIDERS: ATTEND Specialist
DX: C34.90 Malignant neoplasm of unspecified part of unspecified bronchus or lung (principal)

== ENCOUNTER → 2025-02-28 | Outpatient (REF) | payer MEDICARE ==
[2025-02-28 12:34] LABS: BASO # 0.1 10^3/uL (0.0-0.2); BASO % 1.8 % (0.0-1.0); EOS # 0.3 10^3/uL (0.0-0.5); EOS % 12.5 % (0.0-3.0); LYMPH # 0.4 10^3/uL (1.5-5.0); LYMPH % 13.3 % (24.0-44.0); MONO # 0.2 10^3/uL (0.0-0.8); MONO % 6.6 % (2.0-8.0); NEUTROPHILS # 1.7 10^3/uL (1.5-8.5); NEUTROPHILS % 64.0 % (36.0-66.0); PLATELET COUNT, AUTOMATED 152 10^3/uL (150-450)
== END ==
LOC: M LABDRAWC 11:53
PROVIDERS: ATTEND Specialist
DX: C34.91 Malignant neoplasm of unspecified part of right bronchus or lung (principal)

== ENCOUNTER → 2025-03-08 | Outpatient (REF) | payer MEDICARE ==
[~2025-03-08] MED LIST changes: +ACET-1515 PO; -ACET650T15 PO
[2025-03-08 14:01] LABS: BASO # 0.1 10^3/uL (0.0-0.2); BASO % 3.1 % (0.0-1.0); EOS # 0.1 10^3/uL (0.0-0.5); EOS % 3.6 % (0.0-3.0); LYMPH # 0.7 10^3/uL (1.5-5.0); LYMPH % 33.8 % (24.0-44.0); MONO # 1.0 10^3/uL (0.0-0.8); MONO % 49.7 % (2.0-8.0); NEUTROPHILS % 8.8 % (36.0-66.0); PLATELET COUNT, AUTOMATED 270 10^3/uL (150-450)
[2025-03-08 14:06] LABS: NEUTROPHILS # 0.2 10^3/uL (1.5-8.5)
== END ==
LOC: M LABDRAWC 13:00
PROVIDERS: ATTEND Specialist
DX: C34.91 Malignant neoplasm of unspecified part of right bronchus or lung (principal)

== ENCOUNTER → 2025-03-14 | Outpatient (REF) | payer MEDICARE ==
[2025-03-14 13:08] LABS: BASO # 0.1 10^3/uL (0.0-0.2); BASO % 1.6 % (0.0-1.0); EOS # 0.8 10^3/uL (0.0-0.5); EOS % 11.4 % (0.0-3.0); LYMPH # 0.8 10^3/uL (1.5-5.0); LYMPH % 12.0 % (24.0-44.0); MONO # 1.1 10^3/uL (0.0-0.8); MONO % 15.4 % (2.0-8.0); NEUTROPHILS # 4.0 10^3/uL (1.5-8.5); NEUTROPHILS % 59.2 % (36.0-66.0); PLATELET COUNT, AUTOMATED 375 10^3/uL (150-450)
[2025-03-14 13:41] LABS: ALT/SGPT 25.0 U/L (7.0-40); AST/SGOT 27.0 U/L (<34); CALCIUM LEVEL 9.1 MG/DL (8.3-10.6); CARBON DIOXIDE LEVEL 30.0 MMOL/L (20-31); CHLORIDE LEVEL 104.0 MMOL/L (98-107); CREATININE FOR GFR 1.14 MG/DL (0.70-1.30); GLOMERULAR FILTRATION RATE 64.2 (>35); POTASSIUM SERUM 4.6 MMOL/L (3.5-5.1); SODIUM LEVEL 143.0 MMOL/L (136-145)
[2025-03-14 13:42] LABS: FREE T4 1.24 NG/DL (0.89-1.76)
== END ==
LOC: M LABDRAWC 12:21
PROVIDERS: ATTEND Specialist
DX: C34.91 Malignant neoplasm of unspecified part of right bronchus or lung (principal); Z79.899 Other long term (current) drug therapy

== ENCOUNTER → 2025-03-20 | Outpatient (CLI) | payer MEDICARE ==
[2025-03-20 12:23] VITALS: TEMP 97.3
[2025-03-20] MEDS: MIDAZOLAM INJ 2 MG/2 ML VIAL IV PRN (13:01)
[2025-03-20] MEDS: ceFAZolin SODIUM 2 GM in DEXTROSE 5% (D5W) ADV/MINI-BAG 50 ML IV ONE (13:02)
[2025-03-20] MEDS: NS (Normal Saline) 0.9% 1,000 ML IV SCH (13:02)
[2025-03-20] MEDS: LIDOCAINE 1% MDV 20 ML VIAL SC SCH (14:04)
[2025-03-20 15:10] VITALS: BP 164/76; O2SAT 96
== END ==
LOC: M IRPRO 11:49
PROVIDERS: ATTEND Specialist
DX: C34.90 Malignant neoplasm of unspecified part of unspecified bronchus or lung (principal)
CPT/HCPCS: 36561; 99152; 99153; J0690; J1642; J2250; J3010

== ENCOUNTER → 2025-03-21 | Outpatient (REF) | payer MEDICARE ==
[~2025-03-21] MED LIST changes: +LIDO30CR18 TOP
[2025-03-21 13:08] LABS: BASO # 0.0 10^3/uL (0.0-0.2); BASO % 0.5 % (0.0-1.0); EOS # 1.4 10^3/uL (0.0-0.5); LYMPH # 0.7 10^3/uL (1.5-5.0); LYMPH % 11.3 % (24.0-44.0); MONO # 0.1 10^3/uL (0.0-0.8); MONO % 0.8 % (2.0-8.0); NEUTROPHILS # 4.1 10^3/uL (1.5-8.5); NEUTROPHILS % 64.4 % (36.0-66.0); PLATELET COUNT, AUTOMATED 206 10^3/uL (150-450)
[2025-03-21 13:12] LABS: EOS % 22.4 % (0.0-3.0)
== END ==
LOC: M LABDRAWC 12:09
PROVIDERS: ATTEND Specialist
DX: C34.91 Malignant neoplasm of unspecified part of right bronchus or lung (principal)

== ENCOUNTER → 2025-03-28 | Outpatient (REF) | payer MEDICARE ==
[~2025-03-28] MED LIST changes: -LIDO30CR18 TOP
[2025-03-28 18:22] LABS: BASO # 0.0 10^3/uL (0.0-0.2); BASO % 1.9 % (0.0-1.0); EOS # 0.2 10^3/uL (0.0-0.5); EOS % 7.1 % (0.0-3.0); FREE T4 1.37 NG/DL (0.89-1.76); LYMPH # 0.7 10^3/uL (1.5-5.0); LYMPH % 32.1 % (24.0-44.0); MONO # 1.2 10^3/uL (0.0-0.8); MONO % 56.6 % (2.0-8.0); NEUTROPHILS % 1.8 % (36.0-66.0); PLATELET COUNT, AUTOMATED 214 10^3/uL (150-450)
[2025-03-28 18:23] LABS: ALT/SGPT 20.0 U/L (7.0-40); AST/SGOT 20.0 U/L (<34); CALCIUM LEVEL 9.0 MG/DL (8.3-10.6); CARBON DIOXIDE LEVEL 27.0 MMOL/L (20-31); CHLORIDE LEVEL 105.0 MMOL/L (98-107); CREATININE FOR GFR 1.15 MG/DL (0.70-1.30); GLOMERULAR FILTRATION RATE 63.5 (>35); MAGNESIUM LEVEL 1.7 MG/DL (1.8-2.4); POTASSIUM SERUM 4.2 MMOL/L (3.5-5.1); SODIUM LEVEL 138.0 MMOL/L (136-145)
[2025-03-28 18:27] LABS: NEUTROPHILS # 0.0 10^3/uL (1.5-8.5)
== END ==
LOC: M LABDRAWC 17:16
PROVIDERS: ATTEND Specialist
DX: C34.90 Malignant neoplasm of unspecified part of unspecified bronchus or lung (principal); E07.9 Disorder of thyroid, unspecified

== ENCOUNTER → 2025-04-02 | Outpatient (POV) | payer MEDICARE ==
[~2025-04-02] VITALS: Ht 167.6 cm; Wt 70.9 kg
[~2025-04-02] MED LIST changes: +LIDO30CR18 TOP
[2025-04-02 09:55] VITALS: BP 138/80; O2SAT 96
== END ==
LOC: M IRPOV 09:39
PROVIDERS: ATTEND Registered Nurse School
DX: Z45.2 Encounter for adjustment and management of vascular access device (principal)

== ENCOUNTER → 2025-04-04 | Outpatient (REF) | payer MEDICARE ==
[2025-04-04 14:17] LABS: BASO # 0.1 10^3/uL (0.0-0.2); BASO % 1.0 % (0.0-1.0); EOS # 0.1 10^3/uL (0.0-0.5); EOS % 1.6 % (0.0-3.0); LYMPH # 0.8 10^3/uL (1.5-5.0); LYMPH % 9.2 % (24.0-44.0); MONO # 1.4 10^3/uL (0.0-0.8); MONO % 16.3 % (2.0-8.0); NEUTROPHILS # 6.2 10^3/uL (1.5-8.5); NEUTROPHILS % 70.8 % (36.0-66.0); PLATELET COUNT, AUTOMATED 432 10^3/uL (150-450)
[2025-04-04 14:44] LABS: ALT/SGPT 19.0 U/L (7.0-40); AST/SGOT 22.0 U/L (<34); CALCIUM LEVEL 9.4 MG/DL (8.3-10.6); CARBON DIOXIDE LEVEL 29.0 MMOL/L (20-31); CHLORIDE LEVEL 102.0 MMOL/L (98-107); CREATININE FOR GFR 1.17 MG/DL (0.70-1.30); GLOMERULAR FILTRATION RATE 62.2 (>35); MAGNESIUM LEVEL 2.1 MG/DL (1.8-2.4); POTASSIUM SERUM 4.6 MMOL/L (3.5-5.1); SODIUM LEVEL 140.0 MMOL/L (136-145)
[2025-04-04 14:46] LABS: FREE T4 1.26 NG/DL (0.89-1.76)
== END ==
LOC: M LABDRAWC 12:27
PROVIDERS: ATTEND Specialist
DX: C34.90 Malignant neoplasm of unspecified part of unspecified bronchus or lung (principal); Z79.899 Other long term (current) drug therapy

== ENCOUNTER → 2025-04-05 | Outpatient (CLI) | payer MEDICARE, MEDICAID | LOC: M RAD 11:47 | PROVIDERS: ATTEND Specialist | DX: C34.90 Malignant neoplasm of unspecified part of unspecified bronchus or lung (principal) ==

== ENCOUNTER → 2025-04-10 | Outpatient (CLI) | payer MEDICARE ==
[~2025-04-10] MED LIST changes: +ISOVUE-370 76% 100 ML VIAL ONE
== END ==
LOC: M PLAIMG 14:06
PROVIDERS: ATTEND Internal Medicine Medical Oncology
DX: C44.92 Squamous cell carcinoma of skin, unspecified (principal)
CPT/HCPCS: 71260; Q9967

== ENCOUNTER → 2025-04-11 | Outpatient (REF) | payer MEDICARE ==
[~2025-04-11] MED LIST changes: -ISOVUE-370 76% 100 ML VIAL ONE
[2025-04-11 13:39] LABS: BASO # 0.0 10^3/uL (0.0-0.2); BASO % 0.7 % (0.0-1.0); EOS # 0.6 10^3/uL (0.0-0.5); EOS % 11.0 % (0.0-3.0); LYMPH # 0.4 10^3/uL (1.5-5.0); LYMPH % 7.0 % (24.0-44.0); MONO # 0.1 10^3/uL (0.0-0.8); MONO % 2.6 % (2.0-8.0); NEUTROPHILS # 4.3 10^3/uL (1.5-8.5); NEUTROPHILS % 78.2 % (36.0-66.0); PLATELET COUNT, AUTOMATED 266 10^3/uL (150-450)
[2025-04-11 14:10] LABS: FREE T4 1.38 NG/DL (0.89-1.76)
[2025-04-11 14:11] LABS: ALT/SGPT 24.0 U/L (7.0-40); AST/SGOT 23.0 U/L (<34); CALCIUM LEVEL 9.4 MG/DL (8.3-10.6); CARBON DIOXIDE LEVEL 29.0 MMOL/L (20-31); CHLORIDE LEVEL 101.0 MMOL/L (98-107); CREATININE FOR GFR 1.11 MG/DL (0.70-1.30); GLOMERULAR FILTRATION RATE 66.3 (>35); MAGNESIUM LEVEL 2.2 MG/DL (1.8-2.4); POTASSIUM SERUM 4.6 MMOL/L (3.5-5.1); SODIUM LEVEL 141.0 MMOL/L (136-145)
== END ==
LOC: M LABDRAWC 12:21
PROVIDERS: ATTEND Specialist
DX: C34.90 Malignant neoplasm of unspecified part of unspecified bronchus or lung (principal); Z79.899 Other long term (current) drug therapy

== ENCOUNTER → 2025-04-18 | Outpatient (REF) | payer MEDICARE ==
[2025-04-18 13:22] LABS: BASO # 0.1 10^3/uL (0.0-0.2); BASO % 2.8 % (0.0-1.0); EOS # 0.2 10^3/uL (0.0-0.5); EOS % 11.2 % (0.0-3.0); LYMPH # 0.7 10^3/uL (1.5-5.0); LYMPH % 39.1 % (24.0-44.0); MONO # 0.7 10^3/uL (0.0-0.8); MONO % 38.0 % (2.0-8.0); NEUTROPHILS % 8.3 % (36.0-66.0); PLATELET COUNT, AUTOMATED 224 10^3/uL (150-450)
[2025-04-18 13:27] LABS: ALT/SGPT 23.0 U/L (7.0-40); AST/SGOT 23.0 U/L (<34); CALCIUM LEVEL 9.1 MG/DL (8.3-10.6); CARBON DIOXIDE LEVEL 28.0 MMOL/L (20-31); CHLORIDE LEVEL 102.0 MMOL/L (98-107); CREATININE FOR GFR 1.22 MG/DL (0.70-1.30); GLOMERULAR FILTRATION RATE 59.2 (>35); POTASSIUM SERUM 4.4 MMOL/L (3.5-5.1); SODIUM LEVEL 140.0 MMOL/L (136-145)
[2025-04-18 13:49] LABS: NEUTROPHILS # 0.2 10^3/uL (1.5-8.5)
== END ==
LOC: M LABDRAWC 12:02
PROVIDERS: ATTEND Specialist
DX: C44.92 Squamous cell carcinoma of skin, unspecified (principal)

== ENCOUNTER → 2025-04-25 | Outpatient (REF) | payer MEDICARE ==
[~2025-04-25] MED LIST changes: +LEVO25TA5 PO
[2025-04-25 13:21] LABS: BASO # 0.1 10^3/uL (0.0-0.2); BASO % 1.2 % (0.0-1.0); EOS # 0.1 10^3/uL (0.0-0.5); EOS % 0.8 % (0.0-3.0); LYMPH # 0.8 10^3/uL (1.5-5.0); LYMPH % 12.2 % (24.0-44.0); MONO # 1.3 10^3/uL (0.0-0.8); MONO % 20.2 % (2.0-8.0); NEUTROPHILS # 4.2 10^3/uL (1.5-8.5); NEUTROPHILS % 64.7 % (36.0-66.0); PLATELET COUNT, AUTOMATED 384 10^3/uL (150-450)
[2025-04-25 13:46] LABS: ALT/SGPT 17.0 U/L (7.0-40); AST/SGOT 20.0 U/L (<34); CALCIUM LEVEL 9.1 MG/DL (8.3-10.6); CARBON DIOXIDE LEVEL 28.0 MMOL/L (20-31); CHLORIDE LEVEL 101.0 MMOL/L (98-107); CREATININE FOR GFR 1.49 MG/DL (0.70-1.30); GLOMERULAR FILTRATION RATE 46.6 (>35); POTASSIUM SERUM 4.2 MMOL/L (3.5-5.1); SODIUM LEVEL 137.0 MMOL/L (136-145)
[2025-04-25 16:08] LABS: FREE T4 1.41 NG/DL (0.89-1.76)
== END ==
LOC: M LABDRAWC 12:16
PROVIDERS: ATTEND Specialist
DX: C44.92 Squamous cell carcinoma of skin, unspecified (principal)

== ENCOUNTER → 2025-05-08 | Outpatient (CLI) | payer MEDICARE ==
[~2025-05-08] MED LIST changes: +TAMS-18 PO
== END ==
LOC: M ONCR 14:00
PROVIDERS: ATTEND General Practice
DX: C34.11 Malignant neoplasm of upper lobe, right bronchus or lung (principal); C79.51 Secondary malignant neoplasm of bone; C88.41 Extranodal marginal zone B-cell lymphoma of mucosa-associated lymphoid tissue [MALT-lymphoma], in remission; R35.0 Frequency of micturition; R35.1 Nocturia; R39.15 Urgency of urination; Z92.3 Personal history of irradiation; Z92.21 Personal history of antineoplastic chemotherapy; Z87.891 Personal history of nicotine dependence; Z88.6 Allergy status to analgesic agent; Z79.01 Long term (current) use of anticoagulants; Z79.899 Other long term (current) drug therapy

== ENCOUNTER → 2025-05-09 | Outpatient (REF) | payer MEDICARE ==
[2025-05-09 13:17] LABS: BASO # 0.1 10^3/uL (0.0-0.2); BASO % 2.1 % (0.0-1.0); EOS # 0.3 10^3/uL (0.0-0.5); EOS % 11.5 % (0.0-3.0); LYMPH # 0.7 10^3/uL (1.5-5.0); LYMPH % 28.6 % (24.0-44.0); MONO # 0.9 10^3/uL (0.0-0.8); MONO % 37.2 % (2.0-8.0); NEUTROPHILS % 20.6 % (36.0-66.0); PLATELET COUNT, AUTOMATED 259 10^3/uL (150-450)
[2025-05-09 13:24] LABS: ALT/SGPT 23.0 U/L (7.0-40); AST/SGOT 21.0 U/L (<34); CALCIUM LEVEL 9.4 MG/DL (8.3-10.6); CARBON DIOXIDE LEVEL 27.0 MMOL/L (20-31); CHLORIDE LEVEL 104.0 MMOL/L (98-107); CREATININE FOR GFR 1.14 MG/DL (0.70-1.30); GLOMERULAR FILTRATION RATE 64.2 (>35); POTASSIUM SERUM 4.2 MMOL/L (3.5-5.1); SODIUM LEVEL 141.0 MMOL/L (136-145)
[2025-05-09 13:26] LABS: NEUTROPHILS # 0.5 10^3/uL (1.5-8.5)
== END ==
LOC: M LABDRAWC 11:53
PROVIDERS: ATTEND Specialist
DX: C44.92 Squamous cell carcinoma of skin, unspecified (principal); R35.0 Frequency of micturition

== ENCOUNTER → 2025-05-09 | Outpatient (REF) | payer MEDICARE ==
[2025-05-09 13:17] LABS: APPEARANCE, URINE HAZY (CLEAR); BACTERIA, URINE AUTO NEGATIVE (NEGATIVE); BILIRUBIN, URINE AUTO NEGATIVE (NEGATIVE); BLOOD, URINE BLOOD NEGATIVE (NEGATIVE); GLUCOSE, URINE (UA) AUTO NEGATIVE (NEGATIVE); KETONE, URINE AUTO NEGATIVE (NEGATIVE); LEUKOCYTE ESTERASE, URINE AUTO NEGATIVE (NEGATIVE); MUCUS, URINE SMALL (NEGATIVE); NITRITE, URINE AUTO NEGATIVE (NEGATIVE); PROTEIN, URINE AUTO NEGATIVE (NEGATIVE); RBC, URINE AUTO 0 /HPF (0-3); SPECIFIC GRAVITY URINE AUTO 1.013 (1.002-1.035); SQUAMOUS EPITHELIAL CELL UR AU 0 /HPF (0-6); UROBILINOGEN, URINE AUTO 0.2 mg/dL (0.0-2.0); WBC, URINE AUTO 1 /HPF (0-3)
== END ==
LOC: M SFHCCLAY 08:48
PROVIDERS: ATTEND Nurse Practitioner Family
DX: R35.0 Frequency of micturition (principal)

== ENCOUNTER → 2025-05-16 | Outpatient (REF) | payer MEDICARE ==
[2025-05-16 15:16] LABS: ALT/SGPT 22.0 U/L (7.0-40); AST/SGOT 22.0 U/L (<34); BASO # 0.1 10^3/uL (0.0-0.2); BASO % 1.9 % (0.0-1.0); CALCIUM LEVEL 9.3 MG/DL (8.3-10.6); CARBON DIOXIDE LEVEL 30.0 MMOL/L (20-31); CHLORIDE LEVEL 100.0 MMOL/L (98-107); CREATININE FOR GFR 1.22 MG/DL (0.70-1.30); EOS # 0.1 10^3/uL (0.0-0.5); EOS % 2.2 % (0.0-3.0); GLOMERULAR FILTRATION RATE 59.2 (>35); LYMPH # 0.8 10^3/uL (1.5-5.0); LYMPH % 17.7 % (24.0-44.0); MONO # 1.1 10^3/uL (0.0-0.8); MONO % 24.6 % (2.0-8.0); NEUTROPHILS # 2.5 10^3/uL (1.5-8.5); NEUTROPHILS % 52.7 % (36.0-66.0); PLATELET COUNT, AUTOMATED 396 10^3/uL (150-450); POTASSIUM SERUM 4.3 MMOL/L (3.5-5.1); SODIUM LEVEL 140.0 MMOL/L (136-145)
== END ==
LOC: M LABDRAWC 13:31
PROVIDERS: ATTEND Specialist
DX: C44.99 Other specified malignant neoplasm of skin, unspecified (principal)

== ENCOUNTER → 2025-05-22 | Outpatient (REF) | payer MEDICARE ==
[~2025-05-22] MED LIST changes: -ARTIDRO4 OP; +ARTIDRO4 OU; +TIMO0.5S20 OD
[2025-05-22 19:05] LABS: BASO # 0.1 10^3/uL (0.0-0.2); BASO % 1.2 % (0.0-1.0); EOS # 0.2 10^3/uL (0.0-0.5); EOS % 2.9 % (0.0-3.0); LYMPH # 0.9 10^3/uL (1.5-5.0); LYMPH % 12.3 % (24.0-44.0); MONO # 1.1 10^3/uL (0.0-0.8); MONO % 14.5 % (2.0-8.0); NEUTROPHILS # 5.3 10^3/uL (1.5-8.5); NEUTROPHILS % 68.8 % (36.0-66.0); PLATELET COUNT, AUTOMATED 299 10^3/uL (150-450)
[2025-05-22 19:13] LABS: ALT/SGPT 21.0 U/L (7.0-40); AST/SGOT 22.0 U/L (<34); CALCIUM LEVEL 9.7 MG/DL (8.3-10.6); CARBON DIOXIDE LEVEL 28.0 MMOL/L (20-31); CHLORIDE LEVEL 102.0 MMOL/L (98-107); CHOLESTEROL LEVEL 224.0 MG/DL (<200); CHOLESTEROL RISK RATIO 4.19 (<5); CREATININE FOR GFR 1.12 MG/DL (0.70-1.30); GLOMERULAR FILTRATION RATE 65.6 (>35); IRON (FE) 72.0 UG/DL (65-175); LDL CHOLESTEROL 138.4 MG/DL (<100); NON-HDL-C 170.6 MG/DL; PERCENT SATURATION 24.7 % (19.7-50.0); POTASSIUM SERUM 4.6 MMOL/L (3.5-5.1); SODIUM LEVEL 140.0 MMOL/L (136-145); TRIGLYCERIDES LEVEL 161.0 MG/DL (<150)
[2025-05-22 19:17] LABS: FREE T4 1.75 NG/DL (0.89-1.76)
[2025-05-22 19:20] LABS: ESTIMATED AVERAGE GLUCOSE 137.0 MG/DL (60-110)
== END ==
LOC: M SFHCCLAY 10:07
PROVIDERS: ATTEND Nurse Practitioner Family
DX: D50.9 Iron deficiency anemia, unspecified (principal); C85.99 Non-Hodgkin lymphoma, unspecified, extranodal and solid organ sites; R41.3 Other amnesia; E78.00 Pure hypercholesterolemia, unspecified; Z95.1 Presence of aortocoronary bypass graft; I48.0 Paroxysmal atrial fibrillation; Z85.828 Personal history of other malignant neoplasm of skin; E03.9 Hypothyroidism, unspecified; E11.22 Type 2 diabetes mellitus with diabetic chronic kidney disease; N18.31 Chronic kidney disease, stage 3a; J45.20 Mild intermittent asthma, uncomplicated; R91.8 Other nonspecific abnormal finding of lung field

== ENCOUNTER → 2025-05-22 | Outpatient (REF) | payer MEDICARE ==
[~2025-05-22] MED LIST changes: +DIGO0.123 PO
[2025-05-22 19:05] LABS: BASO # 0.1 10^3/uL (0.0-0.2); BASO % 1.1 % (0.0-1.0); EOS # 0.2 10^3/uL (0.0-0.5); EOS % 2.6 % (0.0-3.0); LYMPH # 0.8 10^3/uL (1.5-5.0); LYMPH % 10.7 % (24.0-44.0); MONO # 1.2 10^3/uL (0.0-0.8); MONO % 15.5 % (2.0-8.0); NEUTROPHILS # 5.3 10^3/uL (1.5-8.5); NEUTROPHILS % 69.8 % (36.0-66.0); PLATELET COUNT, AUTOMATED 288 10^3/uL (150-450)
[2025-05-22 19:14] LABS: ALT/SGPT 21.0 U/L (7.0-40); AST/SGOT 22.0 U/L (<34); CALCIUM LEVEL 9.7 MG/DL (8.3-10.6); CARBON DIOXIDE LEVEL 27.0 MMOL/L (20-31); CHLORIDE LEVEL 101.0 MMOL/L (98-107); CREATININE FOR GFR 1.11 MG/DL (0.70-1.30); GLOMERULAR FILTRATION RATE 66.3 (>35); POTASSIUM SERUM 4.6 MMOL/L (3.5-5.1); SODIUM LEVEL 139.0 MMOL/L (136-145)
[2025-05-22 19:16] LABS: FREE T4 1.72 NG/DL (0.89-1.76)
== END ==
LOC: M LABDRAWC 18:46
PROVIDERS: ATTEND Specialist
DX: C34.11 Malignant neoplasm of upper lobe, right bronchus or lung (principal)

== ENCOUNTER 2025-05-23 13:03 | Inpatient (IN) | payer MEDICARE ==
[~2025-05-23] VITALS: Ht 170.2 cm; Wt 67.0 kg
[~2025-05-23 13:03] MED LIST changes: -DIGO0.123 PO; -TIMO0.5S20 OD
[2025-05-23 13:44] LABS: BASO # 0.1 10^3/uL (0.0-0.2); BASO % 1.0 % (0.0-1.0); EOS # 0.1 10^3/uL (0.0-0.5); EOS % 1.5 % (0.0-3.0); LYMPH # 0.6 10^3/uL (1.5-5.0); LYMPH % 6.8 % (24.0-44.0); MONO # 1.0 10^3/uL (0.0-0.8); MONO % 12.2 % (2.0-8.0); NEUTROPHILS # 6.4 10^3/uL (1.5-8.5); NEUTROPHILS % 78.3 % (36.0-66.0); PLATELET COUNT, AUTOMATED 274 10^3/uL (150-450)
[2025-05-23 13:55] LABS: INR 1.0
[2025-05-23] MEDS: DIGOXIN INJ 0.5 MG/2 ML AMP IV STA (13:58)
[2025-05-23] MEDS: NS (Normal Saline) 0.9% 1,000 ML IV ONE (13:59)
[2025-05-23 14:05] LABS: CK-MB VALUE MASS 2.3 NG/ML (<3.6); CPK CREATINE PHOSPHOKINASE 53.0 U/L (46-171); MB/CK RELATIVE INDEX 4.33 (< OR =4)
[2025-05-23 14:09] LABS: FREE T4 1.64 NG/DL (0.89-1.76)
[2025-05-23 14:14] LABS: ALT/SGPT 17.0 U/L (7.0-40); AST/SGOT 19.0 U/L (<34); CALCIUM LEVEL 9.0 MG/DL (8.3-10.6); CARBON DIOXIDE LEVEL 25.0 MMOL/L (20-31); CHLORIDE LEVEL 104.0 MMOL/L (98-107); CREATININE FOR GFR 1.21 MG/DL (0.70-1.30); GLOMERULAR FILTRATION RATE 59.8 (>35); MAGNESIUM LEVEL 1.9 MG/DL (1.8-2.4); PHOSPHORUS LEVEL 3.8 MG/DL (2.4-5.1); POTASSIUM SERUM 4.5 MMOL/L (3.5-5.1); SODIUM LEVEL 141.0 MMOL/L (136-145)
[2025-05-23] MEDS: AMIODARONE HCL 150 MG in IV 1 EA IV SCH (14:36)
[2025-05-23] MEDS: TETANUS/DIPHTH/ACEL. PERTUSSIS 0.5 ML SYR IM.IMMUN ONE (14:48)
[2025-05-23 15:19] LABS: CK-MB VALUE MASS 1.8 NG/ML (<3.6)
[2025-05-23 15:21] LABS: CPK CREATINE PHOSPHOKINASE 41.0 U/L (46-171); MB/CK RELATIVE INDEX 4.39 (< OR =4)
[2025-05-23] MEDS ORDERED: TIMO0.5S20 OD (15:38)
[2025-05-23] MEDS ORDERED: METO1TAB87 PO (15:38)
[2025-05-23] MEDS ORDERED: HOME MED LIST COMPLETE! XX SCH (15:40)
[2025-05-23] MEDS ORDERED: HEPARIN SOD 5000 UNITS/ML 1 ML VIAL/SYRINGE SC SCH (16:25)
[2025-05-23] MEDS ORDERED: ALBUTEROL SULFATE 2.5 MG/0.5 ML INH CONCENTRATE NEB SOLN INH PRN (16:25)
[2025-05-23] MEDS ORDERED: ONDANSETRON 4MG TAB PO PRN (16:25)
[2025-05-23] MEDS: POLYVINYL ALCOHOL OPHTH SOLN 15ML (LIQUITEARS) OU SCH (16:34)
[2025-05-23] MEDS: NS (Normal Saline) 0.9% 1,000 ML IV SCH (17:30)
[2025-05-23] MEDS: PROCHLORPERAZINE 5MG TAB PO SCH (17:46)
[2025-05-23 17:56] LABS: KETONE, URINE AUTO RFX TRACE mg/dL (NEGATIVE); LEUKOCYTE ESTERASE UR AUTO RFX NEGATIVE (NEGATIVE); MUCUS, URINE RFX SMALL (NEGATIVE); NITRITE, URINE AUTO RFX NEGATIVE (NEGATIVE); RBC, URINE AUTO RFX 1 /HPF (0-3); SQUAM EPITHELIAL CELL UR AURFX 0 /HPF (0-6); WBC, URINE AUTO RFX 1 /HPF (0-3)
[2025-05-23 20:45] VITALS: BP 127/62; TEMP 98.1; O2SAT 98
[2025-05-23] MEDS: traZODone 100 MG TAB PO SCH (21:38)
[2025-05-23] MEDS: DOCUSATE SODIUM 100 MG CAPSULE PO SCH (21:38)
[2025-05-23] MEDS: MEMANTINE 5 MG TABLET PO SCH (21:38)
[2025-05-23] MEDS: APIXABAN 5 MG TAB PO SCH (21:38)
[2025-05-23] MEDS: ACYCLOVIR 200 MG CAPSULE PO SCH (21:39)
[2025-05-23] MEDS: ACETAMINOPHEN 325 MG TAB PO PRN (21:39)
[2025-05-23] MEDS: TIMOLOL MALEATE 0.5% OPHTH SOLN 5 ML OD SCH (21:39)
[2025-05-24] VITALS: BP 132/67; TEMP 98.1; O2SAT 96
[2025-05-24 03:59] VITALS: BP 119/68; TEMP 98.1; O2SAT 95
[2025-05-24] MEDS: LEVOTHYROXINE 75 MCG TABLET (0.075 MG) PO SCH (05:45)
[2025-05-24 05:46] VITALS: BP_SYST 116; BP_SYST 139; BP_SYST 142; BP_DIAS 68; BP_DIAS 80; BP_DIAS 81
[2025-05-24 06:07] LABS: PLATELET COUNT, AUTOMATED 239 10^3/uL (150-450)
[2025-05-24 06:37] LABS: ALT/SGPT 16.0 U/L (7.0-40); AST/SGOT 16.0 U/L (<34); CALCIUM LEVEL 8.7 MG/DL (8.3-10.6); CARBON DIOXIDE LEVEL 26.0 MMOL/L (20-31); CHLORIDE LEVEL 110.0 MMOL/L (98-107); CREATININE FOR GFR 1.0 MG/DL (0.70-1.30); GLOMERULAR FILTRATION RATE 75.1 (>35); POTASSIUM SERUM 4.2 MMOL/L (3.5-5.1); SODIUM LEVEL 145.0 MMOL/L (136-145)
[2025-05-24] MEDS ORDERED: LEVOTHYROXINE 25 MCG TABLET (0.025MG) PO SCH (09:00)
[2025-05-24] MEDS: DONEPEZIL 5 MG TAB PO SCH (09:19)
[2025-05-24] MEDS: FERROUS SULFATE 325 MG TAB PO SCH (09:19)
[2025-05-24] MEDS: OMEPRAZOLE 20MG CAP PO SCH (09:19)
[2025-05-24] MEDS: CLOPIDOGREL 75 MG TAB PO SCH (09:19)
[2025-05-24] MEDS: TAMSULOSIN 0.4 MG CAP PO SCH (09:19)
[2025-05-24 12:10] VITALS: BP 134/73; TEMP 97.7; O2SAT 98
[2025-05-24] MEDS: BISACODYL 10 MG SUPP PR SCH (15:15)
[2025-05-24 19:37] VITALS: BP 116/71; TEMP 98.6; O2SAT 98
[2025-05-25 06:24] VITALS: BP 149/88; TEMP 97.9; O2SAT 95
[2025-05-25 06:27] VITALS: BP_SYST 102; BP_SYST 140; BP_SYST 148; BP_DIAS 64; BP_DIAS 66; BP_DIAS 89
[2025-05-25 06:35] LABS: PLATELET COUNT, AUTOMATED 251 10^3/uL (150-450)
[2025-05-25 07:33] LABS: ALT/SGPT 18.0 U/L (7.0-40); AST/SGOT 20.0 U/L (<34); CALCIUM LEVEL 9.3 MG/DL (8.3-10.6); CARBON DIOXIDE LEVEL 28.0 MMOL/L (20-31); CHLORIDE LEVEL 109.0 MMOL/L (98-107); CREATININE FOR GFR 0.94 MG/DL (0.70-1.30); GLOMERULAR FILTRATION RATE 80.9 (>35); POTASSIUM SERUM 4.0 MMOL/L (3.5-5.1); SODIUM LEVEL 146.0 MMOL/L (136-145)
[2025-05-25 08:00] VITALS: BP 100/54; TEMP 97.9; O2SAT 100
[2025-05-25 08:30] VITALS: BP 105/60; TEMP 97.7; O2SAT 97
[2025-05-25] MEDS ORDERED: COLA100C5 PO (13:14)
[2025-05-25] MEDS ORDERED: DIGO0.123 PO (13:14)
[2025-05-25] MEDS: DIGOXIN 0.25 MG TAB PO ONE (13:46)
== END 2025-05-25 14:32 | disposition home or self-care (01) | DRG 312 ==
LOC: M ED 13:03 → EDBD 13:03 → M ED INP 16:22 → M MSPAV 20:45
PROVIDERS: ADMIT Internal Medicine; ATTEND Internal Medicine
PROC: B246ZZZ Ultrasonography of Right and Left Heart (ICD-10-PCS; principal; 2025-05-24)
DX: I95.1 Orthostatic hypotension (principal); C34.11 Malignant neoplasm of upper lobe, right bronchus or lung; C78.7 Secondary malignant neoplasm of liver and intrahepatic bile duct; I47.10 Supraventricular tachycardia, unspecified; C79.51 Secondary malignant neoplasm of bone; I48.91 Unspecified atrial fibrillation; E11.22 Type 2 diabetes mellitus with diabetic chronic kidney disease; Z85.51 Personal history of malignant neoplasm of bladder; Z85.828 Personal history of other malignant neoplasm of skin; E03.9 Hypothyroidism, unspecified; N18.9 Chronic kidney disease, unspecified; I25.10 Atherosclerotic heart disease of native coronary artery without angina pectoris; Z95.5 Presence of coronary angioplasty implant and graft; E78.5 Hyperlipidemia, unspecified; M19.90 Unspecified osteoarthritis, unspecified site; G30.9 Alzheimer's disease, unspecified; F02.80 Dementia in other diseases classified elsewhere, unspecified severity, without behavioral disturbance, psychotic disturbance, mood disturbance, and anxiety; Z96.643 Presence of artificial hip joint, bilateral; Z96.652 Presence of left artificial knee joint; Z87.891 Personal history of nicotine dependence; R29.6 Repeated falls; Z79.01 Long term (current) use of anticoagulants; Z79.890 Hormone replacement therapy; Z79.899 Other long term (current) drug therapy; Z88.6 Allergy status to analgesic agent; Z88.8 Allergy status to other drugs, medicaments and biological substances; I12.9 Hypertensive chronic kidney disease with stage 1 through stage 4 chronic kidney disease, or unspecified chronic kidney disease

== ENCOUNTER → 2025-06-15 | Outpatient (CLI) | payer MEDICARE, MEDICAID ==
[~2025-06-15] MED LIST changes: +DIGO0.123 PO; -PROC5TAB57 PO; +PROC5TAB81 PO; +TIMO0.5S20 OD
== END ==
LOC: M CLY 10:48
PROVIDERS: ATTEND Physician Assistant
DX: J18.9 Pneumonia, unspecified organism (principal)

== ENCOUNTER → 2025-06-27 | Outpatient (CLI) | payer MEDICARE, MEDICAID ==
[~2025-06-27] MED LIST changes: +CEFD1CAP9
[2025-06-27 12:57] LABS: BASO # 0.1 10^3/uL (0.0-0.2); BASO % 1.2 % (0.0-1.0); EOS # 0.4 10^3/uL (0.0-0.5); EOS % 5.2 % (0.0-3.0); LYMPH # 0.9 10^3/uL (1.5-5.0); LYMPH % 13.2 % (24.0-44.0); MONO # 0.9 10^3/uL (0.0-0.8); MONO % 13.3 % (2.0-8.0); NEUTROPHILS # 4.5 10^3/uL (1.5-8.5); NEUTROPHILS % 66.7 % (36.0-66.0); PLATELET COUNT, AUTOMATED 340 10^3/uL (150-450)
[2025-06-27 13:24] LABS: FREE T4 1.69 NG/DL (0.89-1.76)
[2025-06-27 13:25] LABS: ALT/SGPT 18.0 U/L (7.0-40); AST/SGOT 24.0 U/L (<34); CALCIUM LEVEL 9.4 MG/DL (8.3-10.6); CARBON DIOXIDE LEVEL 28.0 MMOL/L (20-31); CHLORIDE LEVEL 107.0 MMOL/L (98-107); CREATININE FOR GFR 1.28 MG/DL (0.70-1.30); GLOMERULAR FILTRATION RATE 55.9 (>35); POTASSIUM SERUM 4.7 MMOL/L (3.5-5.1); SODIUM LEVEL 144.0 MMOL/L (136-145)
== END ==
LOC: M LABDRAWC 09:04
PROVIDERS: ATTEND Specialist
DX: C34.90 Malignant neoplasm of unspecified part of unspecified bronchus or lung (principal); Z79.899 Other long term (current) drug therapy

== ENCOUNTER → 2025-07-10 | Outpatient (REF) | payer MEDICARE, MEDICAID ==
[2025-07-10 14:38] LABS: BASO # 0.1 10^3/uL (0.0-0.2); BASO % 0.8 % (0.0-1.0); EOS # 0.4 10^3/uL (0.0-0.5); EOS % 4.5 % (0.0-3.0); LYMPH # 0.6 10^3/uL (1.5-5.0); LYMPH % 7.1 % (24.0-44.0); MONO # 1.1 10^3/uL (0.0-0.8); MONO % 12.9 % (2.0-8.0); NEUTROPHILS # 6.2 10^3/uL (1.5-8.5); NEUTROPHILS % 74.3 % (36.0-66.0); PLATELET COUNT, AUTOMATED 257 10^3/uL (150-450)
[2025-07-10 15:11] LABS: ALT/SGPT 19.0 U/L (7.0-40); AST/SGOT 21.0 U/L (<34); CALCIUM LEVEL 8.6 MG/DL (8.3-10.6); CARBON DIOXIDE LEVEL 29.0 MMOL/L (20-31); CHLORIDE LEVEL 110.0 MMOL/L (98-107); CREATININE FOR GFR 1.27 MG/DL (0.70-1.30); GLOMERULAR FILTRATION RATE 56.4 (>35); POTASSIUM SERUM 4.2 MMOL/L (3.5-5.1); SODIUM LEVEL 148.0 MMOL/L (136-145)
[2025-07-10 15:13] LABS: FREE T4 1.6 NG/DL (0.89-1.76)
== END ==
LOC: M LABDRWAD 13:35 → M LABDRAWC 13:35
PROVIDERS: ATTEND Specialist
DX: C34.90 Malignant neoplasm of unspecified part of unspecified bronchus or lung (principal); Z79.899 Other long term (current) drug therapy

== ENCOUNTER → 2025-07-25 | Outpatient (CLI) | payer MEDICARE, MEDICAID ==
[~2025-07-25] MED LIST changes: +ISOVUE-370 76% 100 ML VIAL As Ordered ONE
== END ==
LOC: M RAD 10:18
PROVIDERS: ATTEND Specialist
DX: C34.90 Malignant neoplasm of unspecified part of unspecified bronchus or lung (principal)
CPT/HCPCS: 71260; Q9967